=== PATIENT | male | born 1960 | race Caucasian/White ===

== ENCOUNTER 2017-01-22 13:00 | Outpatient (CLI) | payer MEDICARE, OTHER ==
[~2017-01-22 13:00] MED LIST: ACET-868 PO; ASCO500T9 PO; BISA-79 PO; CLON0.1T PO; CLON1TAB4 PO; DOCU250C30 PO; FOLI1TAB16 PO; HYDR-3326 PO; LEVE1000 PO; MAGN400O4 PO; METO25TA20 PO; MULT1CAP34 PO; ONDA4TAB5 PO; PANT40TA2 PO; TEMA30CA5 PO; THIA100T13 PO
== END 2017-01-22 23:59 | disposition home health service (06) ==
LOC: WOU 13:00
PROVIDERS: ATTEND Podiatrist Foot & Ankle Surgery
DX: I87.312 Chronic venous hypertension (idiopathic) with ulcer of left lower extremity (principal); L97.822 Non-pressure chronic ulcer of other part of left lower leg with fat layer exposed; L84 Corns and callosities; F17.200 Nicotine dependence, unspecified, uncomplicated; E11.42 Type 2 diabetes mellitus with diabetic polyneuropathy; Z86.19 Personal history of other infectious and parasitic diseases; Z79.84 Long term (current) use of oral hypoglycemic drugs
CPT/HCPCS: 11042; 11045; A6197; A6402 ×2; A6452

== ENCOUNTER 2017-02-05 12:52 | Outpatient (CLI) | payer MEDICARE, OTHER | END 2017-02-05 23:59 | disposition home health service (06) | LOC: WOU 12:52 | PROVIDERS: ATTEND Podiatrist Foot & Ankle Surgery | DX: I87.312 Chronic venous hypertension (idiopathic) with ulcer of left lower extremity (principal); L97.222 Non-pressure chronic ulcer of left calf with fat layer exposed; F17.200 Nicotine dependence, unspecified, uncomplicated; L84 Corns and callosities; E11.42 Type 2 diabetes mellitus with diabetic polyneuropathy; Z86.19 Personal history of other infectious and parasitic diseases; S00.83XD Contusion of other part of head, subsequent encounter; W19.XXXD Unspecified fall, subsequent encounter; F10.20 Alcohol dependence, uncomplicated; Y90.9 Presence of alcohol in blood, level not specified; M17.11 Unilateral primary osteoarthritis, right knee; Z79.899 Other long term (current) drug therapy | CPT/HCPCS: 11042; 11045; A6402; G0463 ==

== ENCOUNTER 2017-03-12 10:00 | Outpatient (CLI) | payer MEDICARE, OTHER | END 2017-03-12 23:59 | disposition home health service (06) | LOC: WOU 10:00 | PROVIDERS: ATTEND Podiatrist Foot & Ankle Surgery | DX: I87.312 Chronic venous hypertension (idiopathic) with ulcer of left lower extremity (principal); F17.210 Nicotine dependence, cigarettes, uncomplicated; Z86.19 Personal history of other infectious and parasitic diseases; I10 Essential (primary) hypertension; Z79.899 Other long term (current) drug therapy; E11.52 Type 2 diabetes mellitus with diabetic peripheral angiopathy with gangrene; E11.622 Type 2 diabetes mellitus with other skin ulcer; L97.222 Non-pressure chronic ulcer of left calf with fat layer exposed | CPT/HCPCS: 11042; A6197; A6402; A6452 ==

== ENCOUNTER 2017-08-06 10:20 | Outpatient (CLI) | payer MEDICARE, OTHER | END 2017-08-06 23:59 | disposition home health service (06) | LOC: WOU 10:20 | PROVIDERS: ATTEND Podiatrist Foot & Ankle Surgery | DX: I87.312 Chronic venous hypertension (idiopathic) with ulcer of left lower extremity (principal); E11.51 Type 2 diabetes mellitus with diabetic peripheral angiopathy without gangrene; Z79.899 Other long term (current) drug therapy; Z87.892 Personal history of anaphylaxis; Z88.2 Allergy status to sulfonamides; F17.200 Nicotine dependence, unspecified, uncomplicated; B18.2 Chronic viral hepatitis C; E11.622 Type 2 diabetes mellitus with other skin ulcer; L97.821 Non-pressure chronic ulcer of other part of left lower leg limited to breakdown of skin | CPT/HCPCS: 11042; 11045; A6253; A6402; A6452; J7040 ==

== ENCOUNTER 2017-08-07 09:04 | Outpatient (CLI) | payer MEDICARE, OTHER ==
[2017-08-07 09:52] LABS: BASOPHILS % (AUTO) 0.6 % (0.0-2.0); EOSINOPHILS # (AUTO) 0.2 /CMM (0.0-0.7); EOSINOPHILS % (AUTO) 3.7 % (0.0-6.0); HEMATOCRIT 36 % (39-51); HEMOGLOBIN 12.6 g/dL (13.5-17.5); LYMPHOCYTES % (AUTO) 23.2 % (20.0-44.0); MEAN CORPUSCULAR HEMOGLOBIN 35 PG (26.0-33.0); MEAN CORPUSCULAR HGB CONC 35 g/dl (31.0-36.0); MEAN CORPUSCULAR VOLUME 101 fL (80-96); MONOCYTES # (AUTO) 0.8 /CMM (0.1-1.30); MONOCYTES % (AUTO) 18.9 % (2.0-12.0); NEUTROPHILS # (AUTO) 2.3 /CMM (1.8-8.9); NEUTROPHILS % (AUTO) 53.6 % (43.0-81.0); PLATELET COUNT (AUTO) 98 /CMM (150-450); RDW COEFFICIENT OF VARIATION 14.3 (11.5-15.0); RED BLOOD CELL COUNT(AUTO) 3.59 MIL/uL (4.5-6.0); WHITE BLOOD COUNT (AUTO) 4.3 K/uL (4.3-11.0)
[2017-08-07 10:15] LABS: ALBUMIN 2.9 g/dL (3.4-5.0)
[2017-08-07 10:18] LABS: PREALBUMIN 16.3 MG/DL (18.0-35.7)
[2017-08-07 10:29] LABS: EOSINOPHILS % (MANUAL) 2 % (0-4); LYMPHOCYTES % (MANUAL) 30 % (16-48); MONOCYTES % (MANUAL) 11 % (0-11.0); NEUTROPHILS % (MANUAL) 57 (42-76)
== END 2017-08-07 23:59 | disposition home or self-care (01) ==
LOC: LAB 09:04
PROVIDERS: ATTEND Podiatrist Foot & Ankle Surgery
DX: I10 Essential (primary) hypertension (principal); K74.60 Unspecified cirrhosis of liver; F31.9 Bipolar disorder, unspecified; F10.10 Alcohol abuse, uncomplicated; E11.9 Type 2 diabetes mellitus without complications; I83.009 Varicose veins of unspecified lower extremity with ulcer of unspecified site; L97.909 Non-pressure chronic ulcer of unspecified part of unspecified lower leg with unspecified severity; S81.809A Unspecified open wound, unspecified lower leg, initial encounter; X58.XXXA Exposure to other specified factors, initial encounter; Y93.89 Activity, other specified; Y92.89 Other specified places as the place of occurrence of the external cause; Y99.8 Other external cause status
CPT/HCPCS: 36415; 82040-TC; 84134-TC; 85025-TC

== ENCOUNTER 2017-08-11 14:20 | Outpatient (CLI) | payer MEDICARE, OTHER | END 2017-08-11 23:59 | disposition home or self-care (01) | LOC: WOU 14:20 | PROVIDERS: ATTEND Podiatrist Foot & Ankle Surgery | DX: I87.2 Venous insufficiency (chronic) (peripheral) (principal); L98.499 Non-pressure chronic ulcer of skin of other sites with unspecified severity | CPT/HCPCS: 93925; 93970; A6253; A6402; A6452 ==

== ENCOUNTER 2017-08-24 11:05 | Outpatient (CLI) | payer MEDICARE, OTHER | END 2017-08-24 23:59 | disposition home health service (06) | LOC: WOU 11:05 | PROVIDERS: ATTEND Podiatrist Foot & Ankle Surgery | DX: I87.312 Chronic venous hypertension (idiopathic) with ulcer of left lower extremity (principal); L97.821 Non-pressure chronic ulcer of other part of left lower leg limited to breakdown of skin; L89.892 Pressure ulcer of other site, stage 2; B18.2 Chronic viral hepatitis C; E11.51 Type 2 diabetes mellitus with diabetic peripheral angiopathy without gangrene | CPT/HCPCS: 11042; 11045; A6209; A6253; A6402; A6452 ==

== ENCOUNTER 2017-08-31 09:42 | Outpatient (CLI) | payer MEDICARE, OTHER | END 2017-08-31 23:59 | disposition home health service (06) | LOC: WOU 09:42 | PROVIDERS: ATTEND Podiatrist Foot & Ankle Surgery | DX: I87.312 Chronic venous hypertension (idiopathic) with ulcer of left lower extremity (principal); L89.892 Pressure ulcer of other site, stage 2; B18.2 Chronic viral hepatitis C; E11.51 Type 2 diabetes mellitus with diabetic peripheral angiopathy without gangrene; L97.821 Non-pressure chronic ulcer of other part of left lower leg limited to breakdown of skin; I10 Essential (primary) hypertension; F17.200 Nicotine dependence, unspecified, uncomplicated; Z88.2 Allergy status to sulfonamides; R77.0 Abnormality of albumin | CPT/HCPCS: 11042; 11045; A6209; A6253; A6402; A6452 ==

== ENCOUNTER 2017-09-08 13:05 | Outpatient (CLI) | payer MEDICARE, OTHER | END 2017-09-08 23:59 | disposition home health service (06) | LOC: VASLAB 13:05 | PROVIDERS: ATTEND Surgery Vascular Surgery | DX: I87.012 Postthrombotic syndrome with ulcer of left lower extremity (principal); L97.829 Non-pressure chronic ulcer of other part of left lower leg with unspecified severity; B18.2 Chronic viral hepatitis C; E11.622 Type 2 diabetes mellitus with other skin ulcer; D69.6 Thrombocytopenia, unspecified; Z79.01 Long term (current) use of anticoagulants | CPT/HCPCS: A6253; A6402; A6452; G0463 ==

== ENCOUNTER 2017-09-10 11:23 | Outpatient (CLI) | payer MEDICARE, OTHER ==
[2017-09-10 12:39] LABS: BASOPHILS % (AUTO) 0.8 % (0.0-2.0); EOSINOPHILS # (AUTO) 0.3 /CMM (0.0-0.7); EOSINOPHILS % (AUTO) 6.6 % (0.0-6.0); HEMATOCRIT 36 % (39-51); HEMOGLOBIN 12.5 g/dL (13.5-17.5); LYMPHOCYTES # (AUTO) 1.3 /CMM (0.8-4.8); LYMPHOCYTES % (AUTO) 25.8 % (20.0-44.0); MEAN CORPUSCULAR HEMOGLOBIN 35 PG (26.0-33.0); MEAN CORPUSCULAR HGB CONC 34 g/dl (31.0-36.0); MEAN CORPUSCULAR VOLUME 103 fL (80-96); MONOCYTES # (AUTO) 0.9 /CMM (0.1-1.30); MONOCYTES % (AUTO) 18.3 % (2.0-12.0); NEUTROPHILS # (AUTO) 2.4 /CMM (1.8-8.9); NEUTROPHILS % (AUTO) 48.5 % (43.0-81.0); PLATELET COUNT (AUTO) 95 /CMM (150-450); RDW COEFFICIENT OF VARIATION 14.2 (11.5-15.0); RED BLOOD CELL COUNT(AUTO) 3.53 MIL/uL (4.5-6.0); RETICULOCYTE COUNT 2.2 % (0.6-2.5); WHITE BLOOD COUNT (AUTO) 4.9 K/uL (4.3-11.0)
[2017-09-10 12:57] LABS: ALANINE AMINOTRANSFERASE 49 U/L (12-78); ALBUMIN 2.9 g/dL (3.4-5.0); ALKALINE PHOSPHATASE 84 U/L (46-116); ASPARTATE AMINOTRANSFERASE 63 U/L (15-37); BILIRUBIN,TOTAL 1.5 mg/dL (0.2-1.0); CALCIUM, SERUM 8.5 mg/dL (8.5-10.1); CARBON DIOXIDE 23 mmol/L (21-32); CHLORIDE 111 mmol/L (98-107); GLUCOSE 62 mg/dL (74-106); POTASSIUM 4.7 mmol/L (3.5-5.1); SODIUM SERUM 140 mmol/L (136-145); TOTAL PROTEIN, SERUM 8.1 g/dL (6.4-8.2); UREA NITROGEN, BLOOD 27 mg/dL (7-18)
[2017-09-10 13:10] LABS: FERRITIN 339 ng/mL (8-388); FREE T4 (FREE THYROXINE) 1.32 ng/dL (0.76-1.46); THYROID STIMULATING HORMONE 1.841 uIU/mL (0.358-3.74)
[2017-09-10 13:34] LABS: C-REACTIVE PROTEIN < 0.2 mg/dL (0.0-0.9)
[2017-09-10 13:35] LABS: BAND % (MANUAL) 3 % (0.0-5.0); EOSINOPHILS % (MANUAL) 5 % (0-4); LYMPHOCYTES % (MANUAL) 28 % (16-48); MONOCYTES % (MANUAL) 15 % (0-11.0); NEUTROPHILS % (MANUAL) 49 (42-76)
[2017-09-10 13:45] LABS: IRON, SERUM 160 ug/dl (50-175); TOTAL IRON BINDING CAPACITY 314 ug/dl (250-450)
[2017-09-11 11:10] LABS: AFP, TUMOR MARKER 46.5 ng/mL (0.0-8.3)
[2017-09-11 12:11] LABS: *IFE A/G RATIO 0.8 (0.7-1.7); *IFE ALBUMIN 3.4 g/dL (2.9-4.4); *IFE ALPHA-2-GLOBULIN 0.6 g/dL (0.4-1.0); *IFE GAMMA GLOBULIN 2.9 g/dL (0.4-1.8); *IFE M-SPIKE Not Observed g/dL (Not Observed); *IFEALPHA-1-GLOBULIN 0.3 g/dL (0.0-0.4); *SPE PROTEIN TOTAL 8.1 g/dL (6.0-8.5)
== END 2017-09-10 23:59 | disposition home or self-care (01) ==
LOC: LAB 11:23
PROVIDERS: ATTEND Internal Medicine Hematology & Oncology
DX: B19.20 Unspecified viral hepatitis C without hepatic coma (principal); K74.60 Unspecified cirrhosis of liver; R74.0 Nonspecific elevation of levels of transaminase and lactic acid dehydrogenase [LDH]; E80.6 Other disorders of bilirubin metabolism
CPT/HCPCS: 36415; 80053-TC; 82105; 82272-TC; 82728-TC; 82746; 83540-TC; 84439-TC; 84443-TC; 85025-TC; 85045-TC; 86140-TC; 86431-TC; 86706; 86803; 87338; 87340

== ENCOUNTER 2017-09-14 09:37 | Outpatient (CLI) | payer MEDICARE, OTHER | END 2017-09-14 23:59 | disposition home or self-care (01) | LOC: US 09:37 | PROVIDERS: ATTEND Internal Medicine Hematology & Oncology | DX: K74.60 Unspecified cirrhosis of liver (principal); R16.1 Splenomegaly, not elsewhere classified; K86.89 Other specified diseases of pancreas; K82.9 Disease of gallbladder, unspecified | CPT/HCPCS: 76700-TC ==

== ENCOUNTER 2017-09-14 10:44 | Outpatient (CLI) | payer MEDICARE, OTHER | END 2017-09-14 23:59 | disposition home health service (06) | LOC: WOU 10:44 | PROVIDERS: ATTEND Podiatrist Foot & Ankle Surgery | DX: I87.312 Chronic venous hypertension (idiopathic) with ulcer of left lower extremity (principal); F17.200 Nicotine dependence, unspecified, uncomplicated; B18.2 Chronic viral hepatitis C; E11.622 Type 2 diabetes mellitus with other skin ulcer; L97.821 Non-pressure chronic ulcer of other part of left lower leg limited to breakdown of skin; I10 Essential (primary) hypertension | CPT/HCPCS: 11042; 11045; A6253; A6402; A6452; 88305-TC ==

== ENCOUNTER 2017-09-21 10:43 | Outpatient (CLI) | payer MEDICARE, OTHER | END 2017-09-21 23:59 | disposition home health service (06) | LOC: WOU 10:43 | PROVIDERS: ATTEND Podiatrist Foot & Ankle Surgery | DX: I87.312 Chronic venous hypertension (idiopathic) with ulcer of left lower extremity (principal); L97.821 Non-pressure chronic ulcer of other part of left lower leg limited to breakdown of skin; B18.2 Chronic viral hepatitis C; F17.200 Nicotine dependence, unspecified, uncomplicated; Z87.892 Personal history of anaphylaxis; Z88.2 Allergy status to sulfonamides; E11.622 Type 2 diabetes mellitus with other skin ulcer; D69.6 Thrombocytopenia, unspecified | CPT/HCPCS: 11042; 11045; A6253; A6402; A6452 ==

== ENCOUNTER 2017-09-28 10:55 | Outpatient (CLI) | payer MEDICARE, OTHER | END 2017-09-28 23:59 | disposition home health service (06) | LOC: WOU 10:55 | PROVIDERS: ATTEND Podiatrist Foot & Ankle Surgery | DX: I87.312 Chronic venous hypertension (idiopathic) with ulcer of left lower extremity (principal); L97.821 Non-pressure chronic ulcer of other part of left lower leg limited to breakdown of skin; E11.622 Type 2 diabetes mellitus with other skin ulcer; B18.2 Chronic viral hepatitis C; D69.59 Other secondary thrombocytopenia; F17.210 Nicotine dependence, cigarettes, uncomplicated; K74.69 Other cirrhosis of liver | CPT/HCPCS: 15271; A6253; A6402; A6452; J7040; Q4172 ==

== ENCOUNTER 2017-10-05 10:35 | Outpatient (CLI) | payer MEDICARE, OTHER | END 2017-10-05 23:59 | disposition home health service (06) | LOC: WOU 10:35 | PROVIDERS: ATTEND Podiatrist Foot & Ankle Surgery | DX: I87.312 Chronic venous hypertension (idiopathic) with ulcer of left lower extremity (principal); L97.821 Non-pressure chronic ulcer of other part of left lower leg limited to breakdown of skin; F17.200 Nicotine dependence, unspecified, uncomplicated; D69.59 Other secondary thrombocytopenia; K74.60 Unspecified cirrhosis of liver; B18.2 Chronic viral hepatitis C; E11.9 Type 2 diabetes mellitus without complications; Z87.892 Personal history of anaphylaxis; Z88.2 Allergy status to sulfonamides | CPT/HCPCS: 11042; A6253; A6402; A6452 ==

== ENCOUNTER 2017-10-12 10:45 | Outpatient (CLI) | payer MEDICARE, OTHER | END 2017-10-12 23:59 | disposition home health service (06) | LOC: WOU 10:45 | PROVIDERS: ATTEND Podiatrist Foot & Ankle Surgery | DX: I87.312 Chronic venous hypertension (idiopathic) with ulcer of left lower extremity (principal); E11.622 Type 2 diabetes mellitus with other skin ulcer; L97.822 Non-pressure chronic ulcer of other part of left lower leg with fat layer exposed; F17.200 Nicotine dependence, unspecified, uncomplicated; B18.2 Chronic viral hepatitis C; D69.59 Other secondary thrombocytopenia; I10 Essential (primary) hypertension; K74.60 Unspecified cirrhosis of liver | CPT/HCPCS: 15271; A6253; A6402; A6452; Q4172 ==

== ENCOUNTER 2017-10-12 12:07 | Outpatient (CLI) | payer MEDICARE, OTHER ==
[2017-10-12 13:28] LABS: ALBUMIN 2.7 g/dL (3.4-5.0); BILIRUBIN,TOTAL 0.9 mg/dL (0.2-1.0); CALCIUM, SERUM 8.6 mg/dL (8.5-10.1); POTASSIUM 4.8 mmol/L (3.5-5.1); TOTAL PROTEIN, SERUM 7.6 g/dL (6.4-8.2)
[2017-10-12 13:31] LABS: BASOPHILS % (AUTO) 0.8 % (0.0-2.0); EOSINOPHILS # (AUTO) 0.3 /CMM (0.0-0.7); EOSINOPHILS % (AUTO) 6.9 % (0.0-6.0); HEMATOCRIT 37 % (39-51); HEMOGLOBIN 12.5 g/dL (13.5-17.5); LYMPHOCYTES # (AUTO) 1.1 /CMM (0.8-4.8); LYMPHOCYTES % (AUTO) 25.4 % (20.0-44.0); MEAN CORPUSCULAR HEMOGLOBIN 35 PG (26.0-33.0); MEAN CORPUSCULAR HGB CONC 34 g/dl (31.0-36.0); MEAN CORPUSCULAR VOLUME 103 fL (80-96); MONOCYTES # (AUTO) 0.6 /CMM (0.1-1.30); MONOCYTES % (AUTO) 15.2 % (2.0-12.0); NEUTROPHILS # (AUTO) 2.2 /CMM (1.8-8.9); NEUTROPHILS % (AUTO) 51.7 % (43.0-81.0); PLATELET COUNT (AUTO) 104 /CMM (150-450); RDW COEFFICIENT OF VARIATION 14.3 (11.5-15.0); RED BLOOD CELL COUNT(AUTO) 3.54 MIL/uL (4.5-6.0); WHITE BLOOD COUNT (AUTO) 4.2 K/uL (4.3-11.0)
[2017-10-12 13:57] LABS: BAND % (MANUAL) 1 % (0.0-5.0); EOSINOPHILS % (MANUAL) 2 % (0-4); LYMPHOCYTES % (MANUAL) 19 % (16-48); MONOCYTES % (MANUAL) 11 % (0-11.0); NEUTROPHILS % (MANUAL) 67 (42-76)
[2017-10-13 12:06] LABS: AFP, TUMOR MARKER 74.9 ng/mL (0.0-8.3)
[2017-10-14 12:06] LABS: *ANCANTIMYELOPEROXIDASE (MPO) <9.0 U/mL (0.0-9.0); *ANCANTIPROTEINASE 3 (PR-3) AB <3.5 U/mL (0.0-3.5)
[2017-10-14 13:27] LABS: ANTI-MITOCHONDRIAL AB 16.5 Units (0.0-20.0)
[2017-10-16 09:12] LABS: *ANCA ATYPICAL p-ANCA <1:20 titer (Neg:<1:20); *ANCA CYTOPLASMIC (C-ANCA) <1:20 titer (Neg:<1:20); *ANCA PERINUCLEAR (P-ANCA) <1:20 titer (Neg:<1:20)
== END 2017-10-12 23:59 | disposition home or self-care (01) ==
LOC: LAB 12:07
PROVIDERS: ATTEND Internal Medicine Hematology & Oncology
DX: D61.818 Other pancytopenia (principal)
CPT/HCPCS: 36415; 80053-TC; 82105; 82728-TC; 82746; 83516; 83520; 83540-TC; 85025-TC; 86256; 87340

== ENCOUNTER 2017-10-19 11:10 | Outpatient (CLI) | payer MEDICARE, OTHER | END 2017-10-19 23:59 | disposition home health service (06) | LOC: WOU 11:10 | PROVIDERS: ATTEND Podiatrist Foot & Ankle Surgery | DX: I87.312 Chronic venous hypertension (idiopathic) with ulcer of left lower extremity (principal); E11.622 Type 2 diabetes mellitus with other skin ulcer; L97.822 Non-pressure chronic ulcer of other part of left lower leg with fat layer exposed; F17.200 Nicotine dependence, unspecified, uncomplicated; B18.2 Chronic viral hepatitis C; D69.59 Other secondary thrombocytopenia; I10 Essential (primary) hypertension; K74.60 Unspecified cirrhosis of liver | CPT/HCPCS: 11042; 11045; A6253; A6402; A6452 ==

== ENCOUNTER 2017-11-02 09:50 | Outpatient (CLI) | payer MEDICARE, OTHER | END 2017-11-02 23:59 | disposition home or self-care (01) | LOC: WOU 09:50 | PROVIDERS: ATTEND Podiatrist Foot & Ankle Surgery | DX: I87.312 Chronic venous hypertension (idiopathic) with ulcer of left lower extremity (principal); L97.822 Non-pressure chronic ulcer of other part of left lower leg with fat layer exposed; E11.622 Type 2 diabetes mellitus with other skin ulcer; B18.2 Chronic viral hepatitis C; D69.59 Other secondary thrombocytopenia; F17.200 Nicotine dependence, unspecified, uncomplicated; Z79.899 Other long term (current) drug therapy | CPT/HCPCS: 11042; 11045; A6253; A6402; A6452 ==

== ENCOUNTER 2017-11-03 10:54 | Outpatient (CLI) | payer MEDICARE, OTHER ==
[2017-11-03] MEDS ORDERED: CT SWABBABLE VALVE TRANS SET 1 EA INFUS.SET MC ONE (11:38)
[2017-11-03] MEDS ORDERED: IV NS 0.9% 250 ML IV ONE (11:38)
[2017-11-03] MEDS ORDERED: IOHEXOL-300 100 ML VIAL IV ONE (11:39)
== END 2017-11-03 23:59 | disposition home or self-care (01) ==
LOC: CT 10:54
PROVIDERS: ATTEND Internal Medicine Hematology & Oncology
DX: K74.60 Unspecified cirrhosis of liver (principal); K76.0 Fatty (change of) liver, not elsewhere classified; B19.20 Unspecified viral hepatitis C without hepatic coma; R16.1 Splenomegaly, not elsewhere classified; I70.0 Atherosclerosis of aorta; I86.4 Gastric varices; K42.9 Umbilical hernia without obstruction or gangrene; M46.06 Spinal enthesopathy, lumbar region
CPT/HCPCS: 74170; J7050; Q9967

== ENCOUNTER 2017-11-19 11:20 | Outpatient (CLI) | payer MEDICARE, OTHER ==
[~2017-11-19 11:20] MED LIST changes: +MAGN400O21 PO; -MAGN400O4 PO
== END 2017-11-19 23:59 | disposition home health service (06) ==
LOC: WOU 11:20
PROVIDERS: ATTEND Podiatrist Foot & Ankle Surgery
DX: E11.622 Type 2 diabetes mellitus with other skin ulcer (principal); I87.312 Chronic venous hypertension (idiopathic) with ulcer of left lower extremity; B18.2 Chronic viral hepatitis C; D69.59 Other secondary thrombocytopenia; F17.210 Nicotine dependence, cigarettes, uncomplicated; L97.928 Non-pressure chronic ulcer of unspecified part of left lower leg with other specified severity
CPT/HCPCS: 11042; 11045; A6402 ×2; A6452

== ENCOUNTER 2017-12-07 10:22 | Outpatient (CLI) | payer MEDICARE, OTHER | END 2017-12-07 23:59 | disposition home health service (06) | LOC: WOU 10:22 | PROVIDERS: ATTEND Podiatrist Foot & Ankle Surgery | DX: I87.312 Chronic venous hypertension (idiopathic) with ulcer of left lower extremity (principal); L97.822 Non-pressure chronic ulcer of other part of left lower leg with fat layer exposed; E11.622 Type 2 diabetes mellitus with other skin ulcer; F17.200 Nicotine dependence, unspecified, uncomplicated; K74.69 Other cirrhosis of liver; B18.2 Chronic viral hepatitis C; D69.59 Other secondary thrombocytopenia | CPT/HCPCS: 11042; 11045; A6253; A6402; A6452 ==

== ENCOUNTER → 2017-12-17 | Outpatient (CLI) | payer MEDICARE, OTHER | END | disposition home health service (06) | LOC: WOU 09:45 | PROVIDERS: ATTEND Podiatrist Foot & Ankle Surgery | DX: I87.312 Chronic venous hypertension (idiopathic) with ulcer of left lower extremity (principal); L97.822 Non-pressure chronic ulcer of other part of left lower leg with fat layer exposed; B18.2 Chronic viral hepatitis C; D69.59 Other secondary thrombocytopenia; E11.622 Type 2 diabetes mellitus with other skin ulcer | CPT/HCPCS: 11042; 11045; A6253; A6402; A6452 ==

== ENCOUNTER 2017-12-28 10:09 | Outpatient (CLI) | payer MEDICARE, OTHER ==
[~2017-12-28 10:09] MED LIST changes: -HYDR-3326 PO; +HYDR-3974 PO
== END 2017-12-28 23:59 | disposition home health service (06) ==
LOC: WOU 10:09
PROVIDERS: ATTEND Podiatrist Foot & Ankle Surgery
DX: I87.312 Chronic venous hypertension (idiopathic) with ulcer of left lower extremity (principal); L97.822 Non-pressure chronic ulcer of other part of left lower leg with fat layer exposed; B18.2 Chronic viral hepatitis C; D69.59 Other secondary thrombocytopenia; F17.200 Nicotine dependence, unspecified, uncomplicated; Z86.718 Personal history of other venous thrombosis and embolism
CPT/HCPCS: 11042; 11045; A6253; A6402

== ENCOUNTER 2018-01-07 09:50 | Outpatient (CLI) | payer MEDICARE, OTHER | END 2018-01-07 23:59 | disposition home health service (06) | LOC: WOU 09:50 | PROVIDERS: ATTEND Podiatrist Foot & Ankle Surgery | DX: I87.312 Chronic venous hypertension (idiopathic) with ulcer of left lower extremity (principal); L97.829 Non-pressure chronic ulcer of other part of left lower leg with unspecified severity; D69.59 Other secondary thrombocytopenia; B18.2 Chronic viral hepatitis C; E11.622 Type 2 diabetes mellitus with other skin ulcer; F17.200 Nicotine dependence, unspecified, uncomplicated; Z88.2 Allergy status to sulfonamides | CPT/HCPCS: 11042; 11045; A6253; A6402; A6452 ==

== ENCOUNTER 2018-01-14 10:12 | Outpatient (CLI) | payer MEDICARE, OTHER | END 2018-01-14 23:59 | disposition home health service (06) | LOC: WOU 10:12 | PROVIDERS: ATTEND Podiatrist Foot & Ankle Surgery | DX: I87.312 Chronic venous hypertension (idiopathic) with ulcer of left lower extremity (principal); L97.822 Non-pressure chronic ulcer of other part of left lower leg with fat layer exposed; B18.2 Chronic viral hepatitis C; D69.59 Other secondary thrombocytopenia; E11.622 Type 2 diabetes mellitus with other skin ulcer; F17.200 Nicotine dependence, unspecified, uncomplicated | CPT/HCPCS: 11042; 11045; A6253; A6402; A6452 ==

== ENCOUNTER 2018-01-25 10:41 | Outpatient (CLI) | payer MEDICARE, OTHER | END 2018-01-25 23:59 | disposition home health service (06) | LOC: WOU 10:41 | PROVIDERS: ATTEND Podiatrist Foot & Ankle Surgery | DX: I87.312 Chronic venous hypertension (idiopathic) with ulcer of left lower extremity (principal); L97.822 Non-pressure chronic ulcer of other part of left lower leg with fat layer exposed; E11.622 Type 2 diabetes mellitus with other skin ulcer; B18.2 Chronic viral hepatitis C; D69.59 Other secondary thrombocytopenia; Z79.899 Other long term (current) drug therapy; F17.200 Nicotine dependence, unspecified, uncomplicated | CPT/HCPCS: 11042; 11045; A6253; A6402 ×2; A6452; J7040 ==

== ENCOUNTER 2018-02-04 10:25 | Outpatient (CLI) | payer MEDICARE, OTHER | END 2018-02-04 23:59 | disposition home health service (06) | LOC: WOU 10:25 | PROVIDERS: ATTEND Podiatrist Foot & Ankle Surgery | DX: I87.312 Chronic venous hypertension (idiopathic) with ulcer of left lower extremity (principal); L97.822 Non-pressure chronic ulcer of other part of left lower leg with fat layer exposed; D69.59 Other secondary thrombocytopenia; B18.2 Chronic viral hepatitis C; E11.622 Type 2 diabetes mellitus with other skin ulcer; F10.20 Alcohol dependence, uncomplicated; Y90.9 Presence of alcohol in blood, level not specified; F17.200 Nicotine dependence, unspecified, uncomplicated; Z79.899 Other long term (current) drug therapy | CPT/HCPCS: 11042; 11045; 82962-TC; A6253; A6402; A6452; J7040 ==

== ENCOUNTER 2018-02-15 10:40 | Outpatient (CLI) | payer MEDICARE, OTHER | END 2018-02-15 23:59 | LOC: WOU 10:40 | PROVIDERS: ATTEND Podiatrist Foot & Ankle Surgery | DX: I87.312 Chronic venous hypertension (idiopathic) with ulcer of left lower extremity (principal); E11.622 Type 2 diabetes mellitus with other skin ulcer; L97.822 Non-pressure chronic ulcer of other part of left lower leg with fat layer exposed; D69.59 Other secondary thrombocytopenia; B18.2 Chronic viral hepatitis C; F17.200 Nicotine dependence, unspecified, uncomplicated | CPT/HCPCS: 11042; 11045; A6253; A6402; A6452 ==

== ENCOUNTER 2018-02-25 09:20 | Outpatient (CLI) | payer MEDICARE, OTHER ==
[~2018-02-25 09:20] MED LIST changes: -CLON1TAB4 PO; +CLON1TAB5 PO
== END 2018-02-25 23:59 | disposition home health service (06) ==
LOC: WOU 09:20
PROVIDERS: ATTEND Podiatrist Foot & Ankle Surgery
DX: I87.312 Chronic venous hypertension (idiopathic) with ulcer of left lower extremity (principal); L97.823 Non-pressure chronic ulcer of other part of left lower leg with necrosis of muscle; D69.59 Other secondary thrombocytopenia; B18.2 Chronic viral hepatitis C; E11.622 Type 2 diabetes mellitus with other skin ulcer; Z79.899 Other long term (current) drug therapy
CPT/HCPCS: 11043; 11046; A6253; A6402; A6452

== ENCOUNTER 2018-03-03 10:15 | Outpatient (CLI) | payer MEDICARE, OTHER | END 2018-03-03 23:59 | disposition home health service (06) | LOC: WOU 10:15 | PROVIDERS: ATTEND Podiatrist Foot & Ankle Surgery | DX: I87.312 Chronic venous hypertension (idiopathic) with ulcer of left lower extremity (principal); L97.823 Non-pressure chronic ulcer of other part of left lower leg with necrosis of muscle; E11.622 Type 2 diabetes mellitus with other skin ulcer; D69.59 Other secondary thrombocytopenia; B18.2 Chronic viral hepatitis C; F17.200 Nicotine dependence, unspecified, uncomplicated; K74.60 Unspecified cirrhosis of liver; Z88.2 Allergy status to sulfonamides; I10 Essential (primary) hypertension; Z79.899 Other long term (current) drug therapy | CPT/HCPCS: 11042; 11045; A6253; A6402; A6452 ==

== ENCOUNTER 2018-03-11 09:21 | Outpatient (CLI) | payer MEDICARE, OTHER | END 2018-03-11 23:59 | disposition home health service (06) | LOC: WOU 09:21 | PROVIDERS: ATTEND Podiatrist Foot & Ankle Surgery | DX: I87.312 Chronic venous hypertension (idiopathic) with ulcer of left lower extremity (principal); L97.823 Non-pressure chronic ulcer of other part of left lower leg with necrosis of muscle; E11.622 Type 2 diabetes mellitus with other skin ulcer; B18.2 Chronic viral hepatitis C; D69.59 Other secondary thrombocytopenia; F17.200 Nicotine dependence, unspecified, uncomplicated; K74.69 Other cirrhosis of liver; Z79.899 Other long term (current) drug therapy | CPT/HCPCS: 11042; 11045; A6253; A6402; A6452 ==

== ENCOUNTER 2018-03-18 09:45 | Outpatient (CLI) | payer MEDICARE, OTHER | END 2018-03-18 23:59 | disposition home health service (06) | LOC: WOU 09:45 | PROVIDERS: ATTEND Podiatrist Foot & Ankle Surgery | DX: I87.312 Chronic venous hypertension (idiopathic) with ulcer of left lower extremity (principal); E11.622 Type 2 diabetes mellitus with other skin ulcer; L97.822 Non-pressure chronic ulcer of other part of left lower leg with fat layer exposed; B18.2 Chronic viral hepatitis C; D69.59 Other secondary thrombocytopenia; I10 Essential (primary) hypertension; F17.200 Nicotine dependence, unspecified, uncomplicated; Z88.1 Allergy status to other antibiotic agents; Z79.84 Long term (current) use of oral hypoglycemic drugs | CPT/HCPCS: 11042; 11045; A6253; A6402; A6452 ==

== ENCOUNTER 2018-03-25 09:32 | Outpatient (CLI) | payer MEDICARE, OTHER | END 2018-03-25 23:59 | disposition home health service (06) | LOC: WOU 09:32 | PROVIDERS: ATTEND Podiatrist Foot & Ankle Surgery | DX: I87.312 Chronic venous hypertension (idiopathic) with ulcer of left lower extremity (principal); L97.822 Non-pressure chronic ulcer of other part of left lower leg with fat layer exposed; E11.622 Type 2 diabetes mellitus with other skin ulcer; B18.2 Chronic viral hepatitis C; D69.59 Other secondary thrombocytopenia; F17.200 Nicotine dependence, unspecified, uncomplicated; Z79.899 Other long term (current) drug therapy; Z88.2 Allergy status to sulfonamides; Z79.84 Long term (current) use of oral hypoglycemic drugs | CPT/HCPCS: 11042; 11045; A6253; A6402; A6452 ==

== ENCOUNTER 2018-04-01 10:28 | Outpatient (CLI) | payer MEDICARE, OTHER | END 2018-04-01 23:59 | disposition home health service (06) | LOC: WOU 10:28 | PROVIDERS: ATTEND Podiatrist Foot & Ankle Surgery | DX: I87.312 Chronic venous hypertension (idiopathic) with ulcer of left lower extremity (principal); L97.822 Non-pressure chronic ulcer of other part of left lower leg with fat layer exposed; B18.2 Chronic viral hepatitis C; D69.59 Other secondary thrombocytopenia; Z88.2 Allergy status to sulfonamides; Z79.899 Other long term (current) drug therapy; Z79.84 Long term (current) use of oral hypoglycemic drugs | CPT/HCPCS: 11042; 11045; A6253; A6402; A6452 ==

== ENCOUNTER 2018-04-05 11:15 | Outpatient (CLI) | payer MEDICARE, OTHER | END 2018-04-05 23:59 | disposition home or self-care (01) | LOC: LAB 11:15 | PROVIDERS: ATTEND Podiatrist Foot & Ankle Surgery | DX: Z01.818 Encounter for other preprocedural examination (principal); I87.312 Chronic venous hypertension (idiopathic) with ulcer of left lower extremity; M25.78 Osteophyte, vertebrae | CPT/HCPCS: 71046 ==

== ENCOUNTER 2018-04-08 10:27 | Outpatient (CLI) | payer MEDICARE, OTHER ==
[2018-04-08 12:51] LABS: INR 1.29 (0.87-1.13)
== END 2018-04-08 23:59 | disposition home health service (06) ==
LOC: WOU 10:27
PROVIDERS: ATTEND Podiatrist Foot & Ankle Surgery
DX: I87.312 Chronic venous hypertension (idiopathic) with ulcer of left lower extremity (principal); L97.822 Non-pressure chronic ulcer of other part of left lower leg with fat layer exposed; B18.2 Chronic viral hepatitis C; D69.59 Other secondary thrombocytopenia; E11.622 Type 2 diabetes mellitus with other skin ulcer; F17.200 Nicotine dependence, unspecified, uncomplicated
CPT/HCPCS: 11042; 36415; 82962-TC; 85610-TC; 85730-TC; A6253; A6402; A6452

== ENCOUNTER 2018-04-15 10:22 | Inpatient (IN) | payer MEDICARE, OTHER ==
[2018-04-05 12:35] LABS: BASOPHILS % (AUTO) 0.4 % (0.0-2.0); EOSINOPHILS % (AUTO) 5.5 % (0.0-6.0); HEMATOCRIT 33 % (39-51); HEMOGLOBIN 11.2 g/dL (13.5-17.5); LYMPHOCYTES # (AUTO) 0.9 /CMM (0.8-4.8); LYMPHOCYTES % (AUTO) 20.8 % (20.0-44.0); MEAN CORPUSCULAR HGB CONC 34 g/dl (31.0-36.0); MEAN CORPUSCULAR VOLUME 98 fL (80-96); MONOCYTES # (AUTO) 0.7 /CMM (0.1-1.30); MONOCYTES % (AUTO) 17.4 % (2.0-12.0); NEUTROPHILS # (AUTO) 2.3 /CMM (1.8-8.9); NEUTROPHILS % (AUTO) 55.9 % (43.0-81.0); PLATELET COUNT (AUTO) 98 /CMM (150-450); RED BLOOD CELL COUNT(AUTO) 3.31 MIL/uL (4.5-6.0); WHITE BLOOD COUNT (AUTO) 4.2 K/uL (4.3-11.0)
[2018-04-05 12:52] LABS: PREALBUMIN 12.9 MG/DL (18.0-35.7)
[2018-04-05 12:53] LABS: ALBUMIN 2.9 g/dL (3.4-5.0); BILIRUBIN,DIRECT 0.3 mg/dL (0.0-0.2); BILIRUBIN,TOTAL 0.9 mg/dL (0.2-1.0); CALCIUM, SERUM 8.5 mg/dL (8.5-10.1); POTASSIUM 4.8 mmol/L (3.5-5.1); TOTAL PROTEIN, SERUM 7.6 g/dL (6.4-8.2)
[2018-04-05 14:55] LABS: EOSINOPHILS % (MANUAL) 3 % (0-4); LYMPHOCYTES % (MANUAL) 22 % (16-48); MONOCYTES % (MANUAL) 15 % (0-11.0); NEUTROPHILS % (MANUAL) 60 (42-76)
[~2018-04-15] VITALS: Ht 180.3 cm; Wt 113.9 kg
[2018-04-15] MEDS ORDERED: FENTANYL PF 100MCG/2ML AMPUL ONE ×2 (12:12→12:13)
[2018-04-15] MEDS ORDERED: LIDOCAINE 1%-EPI 1:100,000 20 ML VIAL ONE (12:32)
[2018-04-15] MEDS ORDERED: MINERAL OIL 10 ML VIAL MC ONE (12:32)
[2018-04-15] MEDS ORDERED: BUPIVACAINE 0.25% 75 MG/30 ML VIAL ONE (13:04)
[2018-04-15] MEDS ORDERED: HYDROMORPHONE INJ 2 MG/ML DISP.SYRIN ONE (14:08)
[2018-04-15 14:30] VITALS: BP 106/57
--- NOTE | 2018-04-15 14:30 | NUR ---
PER DR KRUEGER, ADMIT PATIENT FOR POST-OP MANAGEMENT, CALL [facility] FOR ADMITTING ORDERS, LEAVE WOUND VAC OF 125 MMHG LOW CONTINUOUS, LEAVE DRESSING DRY AND INTACT, WBAT
[2018-04-15 14:45] VITALS: BP 126/70
[2018-04-15 15:00] VITALS: BP 109/66
[2018-04-15 15:15] VITALS: BP 99/56
[2018-04-15 15:24] VITALS: BP 104/55
[2018-04-15] MEDS ORDERED: DEXTROSE 50%-WATER 50 ML DISP.SYRIN IV PRN (17:30)
[2018-04-15] MEDS ORDERED: HYDROCODONE/APAP 5/325MG 1 EACH TABLET PO PRN (17:30)
--- NOTE | 2018-04-15 17:34 | NUR ---
MS ADMIT FROM ER AFTER REPORT RECEIVED AT BEDSIDE. PATIENT ORIENTED TO PRIMARY RN, UNIT, ROOM, BED, AND UNIT POLICIES REGARDING PATIENT CARE AND VISITING HOURS. PATIENT WEIGH BY BEDSCALE AND ENCOURAGED TO CALL IF THEY NEED ANYTHING. ALL QUESTIONS AND CONCERNS ADDRESSED. PATIENT VERBALIZED UNDERSTANDING.
[2018-04-15] MEDS: BLOOD SUGAR DIAGNOSTIC 1 EACH STRIP IN SCH ×2 (18:18→21:15)
[2018-04-15] MEDS ORDERED: CLONIDINE HCL 0.1 MG TABLET PO PRN (18:30)
[2018-04-15] MEDS ORDERED: BISACODYL (5 MG) 5 MG TABLET.DR PO PRN (18:30)
--- NOTE | 2018-04-15 18:59 | NUR ---
CHANGE OF SHIFT REPORT PT RESTING COMFORTABLY IN BED. NO S/S OR C/O PAIN OR DISTRESS NOTED. SIDE RAILS UP X2, CALL LIGHT LEFT WITHIN REACH. PT KEPT CLEAN, DRY, AND COMFORTABLE. NO SIGNIFICANT CHANGES SINCE ADMISSION. WILL GIVE REPORT TO NING PEREZ.
[2018-04-15] MEDS: MORPHINE SULFATE INJ 4 MG/ML DISP.SYRIN IV PRN (19:53)
[2018-04-15 20:00] VITALS: BP 123/67
[2018-04-15] MEDS: clonazePAM 1 MG TABLET PO SCH (20:59)
[2018-04-15] MEDS: LEVETIRACETAM (250 MG) 250 MG TABLET PO SCH (20:59)
[2018-04-15] MEDS: TEMAZEPAM 15 MG CAPSULE PO PRN (21:00)
--- NOTE | 2018-04-16 06:40 | NUR ---
MS RN NOTES AWAKE & RESPONSIVE. NOT IN ANY DISTRESS. NO SOB NOTED. DENIES ANY PAIN OR DISCOMFORT AT THIS TIME. WITH IV-HL PATENT & INTACT. PT REFUSING AM CARE AT THIS TIME. MONITORED ACCORDINGLY. CALL LIGHT WITHIN REACH. BED IN LOWEST POSITION. SR UP X 2 FOR SAFETY. WILL ENDORSE TO NEXT SHIFT.
[2018-04-16] MEDS: BLOOD SUGAR DIAGNOSTIC 1 EACH STRIP IN SCH ×4 (06:57→21:02)
[2018-04-16] MEDS: INSULIN REGULAR, HUMAN 100 UNIT/ML 3 ML VIAL SQ PRN ×4 (06:58→21:03)
--- NOTE | 2018-04-16 07:30 | NUR ---
MSRN OPENING NOTES. PT RECEIVED A&0X3, WATCHING T.V AND RESTING. PT TOLERATING ROOM AIR WITHOUT SOB OR RESP DISTRESS. PT REPORTING 9/10 PAIN TO LEFT THIGH R/T GRAFT DONOR SITE, WILL ADMIN PO PRN ANALGESIA. PT WITH WOUND VAC TO LOWER LEFT LEG, DRESSING INTACT AND SUCTION STABLE AT 125MMHG. PT WITHOUT IVC. PT REFUSING IVC PLACEMENT, WILL INFORM DR. PT BED IN LOWEST LOCKED POSITION WITH HANDRAILSX2 AND CALL POE WITHIN REACH. PT BRIEFED ON TODAY'S POC AND IS WITHOUT CONCERN OR COMPLAINT.
[2018-04-16] MEDS: PANTOPRAZOLE 40 MG TABLET.DR PO SCH (07:48)
[2018-04-16] MEDS: MORPHINE SULFATE INJ 4 MG/ML DISP.SYRIN IV PRN (07:49)
[2018-04-16] MEDS: DOCUSATE SODIUM 250 MG CAPSULE PO SCH (08:07)
[2018-04-16] MEDS: METOPROLOL TARTRATE 25 MG TABLET PO SCH (08:08)
[2018-04-16] MEDS: LEVETIRACETAM (250 MG) 250 MG TABLET PO SCH ×2 (08:08→20:57)
[2018-04-16] MEDS: FOLIC ACID 1 MG TABLET PO SCH (08:08)
[2018-04-16] MEDS: THIAMINE HCL 100 MG TABLET PO SCH (08:08)
[2018-04-16] MEDS: clonazePAM 1 MG TABLET PO SCH ×4 (08:08→20:57)
[2018-04-16 08:30] VITALS: BP 150/79
--- NOTE | 2018-04-16 10:00 | NUR ---
MSRN NOTES. PT REFUSING IVC PLACEMENT. MD MOORE AND MD HILLIARD AWARE. NO FURTHER ACTION A THIS TIME.
--- NOTE | 2018-04-16 10:17 | NUR ---
PHYTOPATHOLOGY TEACHER DISCHARGE VAC/WOUND TREATMENT ORDERS CLARIFIED WITH DPM DR ZHOU AND DISCUSSED WITH NURSING STAFF.
--- NOTE | 2018-04-16 12:00 | NUR ---
MOSHE NOTES. WOUND NURSE OVIDIO ADDED WOUND VAC INTERVENTIONS. PAGE PRINTED TO SUPPLY TO JARED ORTEGA AND ADDED TO EXITCARE. KERON BATISTA FROM WOUND CARE CENTRE LEFT PT SUPPLIES AND PORTABLE WOUND VAC TO BE USED FOR D/C. WILL ENDORSE TO NIGHT NURSE.
--- NOTE | 2018-04-16 12:10 | NUR ---
MSRN NOTES. LARGE BOX CONTAINING 4 SMALLER BOXES WITH REPORTED WOUND SUPPLIES AND PORTABLE WOUND VAC DELIVERED TO PT ROOM. BELONGINGS LIST UPDATED.
[2018-04-16] MEDS: HYDROCODONE/APAP 10/325MG 1 EA TABLET PO PRN ×3 (12:39→21:31)
[2018-04-16] MEDS: GLUCERNA SHAKE 237 ML CAN PO SCH ×2 (15:11→17:00)
[2018-04-16 16:36] VITALS: BP 139/79
--- NOTE | 2018-04-16 18:08 | NUR ---
MSRN CLOSING NOTES. PT REMAINS A&0X3, WATCHING T.V AND RESTING. PT TOLERATING ROOM AIR WITHOUT RESP DISTRESS AND REPORTING CURRENT PAIN MANAGEMENT ADEQUATE. PT WOUND VAC TO LOWER LEFT LEG AT 125MMHG AND DRESSING CLEAN AND INTACT. NEURO INTACT. PT WITHOUT IVC- MD AWARE. PT REPORTS LACK OF APPETITE AND REFUSED BREAKFAST, LUNCH AND DINNER. SUPPLEMENTS AND SNACK PROVIDED. PT BED IN LOWEST LOCKED POSITION WITH HANDRAILSX2 AND CALL POE WITHIN REACH. ALL DAY NURSE DUTIES ATTENDED TO AND PT IS WITHOUT CONCERN OR COMPLAINT.
--- NOTE | 2018-04-16 19:45 | NUR ---
RN INITIAL NOTES: RECEIVED REPORT FROM KI PEREZ, PT IN BED, AWAKE, A/O X4,ON RA, C/O 01/30 PAIN AWARE OF HIS PAIN MEDICATION DUE AT 2100, AGREE TO WAIT FOR HIS MEDS TO BE DUE. PT HAS NO IV ACCESS, PT BEEN REFUSING FOR REINSERTION, MD AWARE. PT S/P ELECTIVE SPILT THICKNESS SKIN GRAFT OF NON HEALING LLE ULCER, LEFT THIGH DONOR, LEFT CALF GRAFT SITE, DRESSING CD/I, NO ACTIVE BLEEDING NOTED. DRESSING ON LLE IN PLACED, WITH WOUND VAC, SETTING AT 125MMHG WITH SEROSANGUINEOUS DRAINAGE NOTED AT COLLECTION CHAMBER ABOUT 10-20ML. PT ABLE TO MOVE AND WIGGLE TOES, WITH GOOD CAPILLARY REFILL NOTED, PT DENIES ANY NUMBNESS TINGLING SENSATION IN THE LEG. ABLE TO DISTINGUISH BETWEEN SHARP OR BLUNT SENSATION. BLE OFFLOADED. DISCUSSED WITH PT REGARDING PLAN OF CARE. PT UNDERSTAND AND AGREE. SAFETY PRECAUTIONS FOR FALL INITIATED CALL LIGHT IN REACH WILL CONTINUE MONITORING PT.
[2018-04-16 20:00] VITALS: BP 135/76
--- NOTE | 2018-04-16 20:00 | NUR ---
RN NOTES: LARGE BOX IN THE ROOM CONTAINS WOUND VAC AND WOUND VAC SUPPLIES
[2018-04-16 20:21] VITALS: BP 135/76
--- NOTE | 2018-04-16 21:03 | NUR ---
BS 116: BS 116 NO INSULIN COVERAGE GIVEN PER SLIDING SCALE, PT ON CCHO 60GMS DIET, TOLERATING PO INTAKE WELL.
--- NOTE | 2018-04-16 21:31 | NUR ---
PRN NORCO: PT C/O 06/01 LEFT LEG PAIN REQUESTING FOR NORCO, PRN NORCO 10/325 MG TAB PO ADMINISTERED TO THE PT AT THIS TIME, WILL CONTINUE MONITORING AND REASSESSING PT'S PAIN LEVEL
[2018-04-17] MEDS: HYDROCODONE/APAP 10/325MG 1 EA TABLET PO PRN ×4 (01:41→14:21)
--- NOTE | 2018-04-17 01:41 | NUR ---
PRN NORCO: PT C/O 06/01 LEFT LEG PAIN PRN NORCO ADMINISTERED TO THE PT AT THIS TIME.
--- NOTE | 2018-04-17 05:50 | NUR ---
PRN NORCO: PT C/O LEFT LEG PAIN REQUESTING FOR NORCO, PS 7/10, PRN NORCO 10/325 MG ADMINISTERED TO THE PT AT THIS TIME, WILL CONTINUE TO MONITOR AND REASSESS PT
[2018-04-17] MEDS: INSULIN REGULAR, HUMAN 100 UNIT/ML 3 ML VIAL SQ PRN (05:54)
[2018-04-17] MEDS: BLOOD SUGAR DIAGNOSTIC 1 EACH STRIP IN SCH ×4 (05:54→21:28)
--- NOTE | 2018-04-17 05:56 | NUR ---
BS 145: BS 145, PT REFUSED INSULIN COVERAGE, DESPITE PROVIDING EDUCATION
--- NOTE | 2018-04-17 06:50 | NUR ---
RN CLOSING NOTES: PT IN BED, AWAKE, LAST PAIN MEDS ADMINISTERED AT 0540AM. NO IV ACCESS PT BEEN REFUSING FOR REINSERTION, MD AWARE. LEFT LEG DRESSING REMAINS C/D/I, CONNECTED TO WOUND VAC AT 125MMHG, DRAINAGE ON COLLECTION CHAMBER REMAINS LESS THAN 20ML. VS REMAINS STABLE, NEEDS ATTENDED. PT FOR DC ON THURSDAY NEEDS SNF PLACEMENT. SAFETY PRECAUTIONS FOR FALL REMAINS ENGAGED, CALL LGHT IN REACH. WILL ENDORSE TO DAY RN FOR NORBERTO.
--- NOTE | 2018-04-17 07:30 | NUR ---
RN MS NOTES PT IN BED, AWAKE, ALERT AND ORIENTED, STATED THAT HE NEEDS HIS PAIN MEDICATION, PT UNABLE TO SCALE HIS PAIN, STATED IT IS DIFFERENT ALL THE TIME, NO FACIAL GRIMACING OR MOANING, CALL LIGHT WITHIN REACH, NEEDS ATTENDED.
[2018-04-17 08:00] VITALS: BP 142/84
[2018-04-17] MEDS: GLUCERNA SHAKE 237 ML CAN PO SCH ×2 (08:10→16:27)
[2018-04-17] MEDS: THIAMINE HCL 100 MG TABLET PO SCH (08:11)
[2018-04-17] MEDS: FOLIC ACID 1 MG TABLET PO SCH (08:11)
[2018-04-17] MEDS: PANTOPRAZOLE 40 MG TABLET.DR PO SCH (08:11)
[2018-04-17] MEDS: LEVETIRACETAM (250 MG) 250 MG TABLET PO SCH ×2 (08:11→21:15)
[2018-04-17] MEDS: METOPROLOL TARTRATE 25 MG TABLET PO SCH (08:11)
[2018-04-17] MEDS: clonazePAM 1 MG TABLET PO SCH ×4 (08:11→21:15)
[2018-04-17] MEDS: DOCUSATE SODIUM 250 MG CAPSULE PO SCH (09:00)
--- NOTE | 2018-04-17 12:30 | NUR ---
RN MS NOTES PT IN BED, ASLEEP, EASY TO AROUSE, ALERT AND ORIENTED, NO COMPLAINT AT THIS TIME, BLOOD SUGAR CHECKED, PT REFUSED INSULIN, PT WITH POOR PO INTAKE, STATED THAT FOOD WILL MAKE HIS BLOOD SUGAR HIGH, PT EDUCATION PROVIDED REGARDING DIABETIC DIET, PT VERBALIZED UNDERSTANDING, DR. MOORE INFORMED, CALL LIGHT WITHIN REACH, NEEDS ATTENDED.
--- NOTE | 2018-04-17 15:36 | NUR ---
RN MS NOTES RECEIVED LIST OF HOME MEDS FROM PT'S BOARD AND CARE, DR. TERESA CALLES, PER , OK TO CONTINUE WITH THE FOLLOWING: ALLOPURINOL, PLAVIX, FESO4, GABAPENTIN, MS ER, METFORMIN, VITAMIN C, MULTIVITAMINS.
[2018-04-17 16:00] VITALS: BP 139/82
[2018-04-17] MEDS: GABAPENTIN 300 MG CAPSULE PO SCH (16:27)
[2018-04-17] MEDS: ALLOPURINOL 100 MG TABLET PO SCH (16:27)
[2018-04-17] MEDS: CLOPIDOGREL BISULFATE 75 MG TABLET PO SCH (16:28)
[2018-04-17] MEDS: METFORMIN 500 MG TABLET PO SCH (16:28)
[2018-04-17] MEDS: MORPHINE SULFATE SR 15 MG TABLET.SA PO SCH ×2 (16:29→20:33)
--- NOTE | 2018-04-17 18:44 | NUR ---
RN MS NOTES PT IN BED, AWAKE, ALERT AND ORIENTED, WATCHING TV, PAIN MEDICATION GIVEN FOR PAIN MANAGEMENT, PM MEDS GIVEN, WOUND VAC ATTACHED TO LEFT LEG, DRESSING DRY AND INTACT, BLOOD SUGAR CHECKED, REFUSED INSULIN, CALL LIGHT WITHIN REACH, ALL NEEDS ATTENDED.
[2018-04-17 19:51] VITALS: BP 127/82
[2018-04-17] MEDS: TEMAZEPAM 15 MG CAPSULE PO PRN (21:15)
--- NOTE | 2018-04-18 06:00 | NUR ---
MS RN NOTES BS CHECKED 136. PT REFUSED TO HAVE INSULIN AT THIS TIME. EXPLAINED TO PT IMPORTANCE OF INSULIN COVERAGE IN HIS POC BUT PT STILL REFUSED. WILL CONTINUE TO MONITOR.
[2018-04-18] MEDS: BLOOD SUGAR DIAGNOSTIC 1 EACH STRIP IN SCH ×4 (06:14→21:19)
--- NOTE | 2018-04-18 06:27 | NUR ---
MS RN NOTES AWAKE & RESPONSIVE. NOT IN ANY DISTRESS. NO SOB NOTED. DENIES ANY PAIN OR DISCOMFORT AT THIS TIME. PT REFUSING AM CARE AT THIS TIME. MONITORED ACCORDINGLY. CALL LIGHT WITHIN REACH. BED IN LOWEST POSITION. SR UP X 2 FOR SAFETY. WILL ENDORSE TO NEXT SHIFT.
--- NOTE | 2018-04-18 07:30 | NUR ---
RN MS NOTES PT IN BED, ASLEEP, EASY TO AROUSE, ALERT AND ORIENTED, DENIES PAIN AT THIS TIME, BREATHING PATTERN NORMAL, WITH WOUND VAC IN PLACE, DRESSING TO LEFT LEG INTACT AND DRY, CALL LIGHT WITHIN REACH.
[2018-04-18 08:00] VITALS: BP 122/76
[2018-04-18] MEDS: FERROUS SULFATE (325 MG) 325 MG/TAB TABLET PO SCH (09:00)
[2018-04-18] MEDS: DOCUSATE SODIUM 250 MG CAPSULE PO SCH (09:00)
[2018-04-18] MEDS: GLUCERNA SHAKE 237 ML CAN PO SCH ×2 (09:00→16:21)
[2018-04-18] MEDS: GABAPENTIN 300 MG CAPSULE PO SCH ×3 (09:00→16:22)
[2018-04-18] MEDS: THIAMINE HCL 100 MG TABLET PO SCH (09:00)
[2018-04-18] MEDS: MULTIVITAMINS,THERAGRAN 1 UDTAB TABLET PO SCH (09:00)
[2018-04-18] MEDS: ALLOPURINOL 100 MG TABLET PO SCH ×2 (09:00→16:22)
[2018-04-18] MEDS: ASCORBIC ACID 500 MG TABLET PO SCH (09:00)
[2018-04-18] MEDS: clonazePAM 1 MG TABLET PO SCH ×4 (09:01→21:19)
[2018-04-18] MEDS: MORPHINE SULFATE SR 15 MG TABLET.SA PO SCH ×3 (09:01→16:22)
[2018-04-18] MEDS: CLOPIDOGREL BISULFATE 75 MG TABLET PO SCH (09:01)
[2018-04-18] MEDS: METOPROLOL TARTRATE 25 MG TABLET PO SCH (09:01)
[2018-04-18] MEDS: LEVETIRACETAM (250 MG) 250 MG TABLET PO SCH ×2 (09:01→21:19)
[2018-04-18] MEDS: PANTOPRAZOLE 40 MG TABLET.DR PO SCH (09:01)
[2018-04-18] MEDS: METFORMIN 500 MG TABLET PO SCH ×2 (09:02→16:22)
[2018-04-18] MEDS: FOLIC ACID 1 MG TABLET PO SCH (09:07)
--- NOTE | 2018-04-18 12:56 | NUR ---
RN MS NOTES PT IN BED, AWAKE, ALERT AND ORIENTED, WATCHING TV, DUE MEDICATIONS GIVEN ORDERED, BS CHECKED, NO S/S OF HYPO/HYPERGLYCEMIA NOTED, CALL LIGHT WITHIN REACH, NEEDS ATTENDED.
--- NOTE | 2018-04-18 15:45 | NUR ---
RN MS NOTES RECEIVED RESULT OF PT'S MRSA SCREEN, PT IS (+) MRSA NARES, PLACED PT ON CONTACT ISOLATION PRECAUTIONS, DR. MOORE INFORMED, ORDERED BACTROBAN OINTMENT, PT AND FAMILY INFORMED, VERBALIZED UNDERSTANDING.
[2018-04-18 16:00] VITALS: BP 113/75
[2018-04-18] MEDS: MUPIROCIN OINT 2% 22 GM TUBE SCH ×2 (16:21→21:26)
--- NOTE | 2018-04-18 18:20 | NUR ---
RN MS NOTES PT IN BED, AWAKE, ALERT AND ORIENTED, SPEAKING ON HIS CELLPHONE, PM MEDS GIVEN, PM CARE RENDERED, WOUND VAC ATTACHED, DRESSING TO LEFT LEG INTACT AND DRY, ALL NEEDS ATTENDED.
--- NOTE | 2018-04-18 19:35 | NUR ---
MS RN INITIAL NOTE PT IS IN BED AWAKE AND ALERT, ABLE TO MAKE NEEDS KNOWN. NO SIGNS OF SOB OR DISTRESS, BREATHING EVENLY AND UNLABORED ON RA. PT HAS A WOUND VACC ON LEFT LOWER LEG AT 125 mmHg. NO IV SITE, PT REFUSED, MD IS AWARE. BED IS IN LOW AND LOCKED POSITION, CALL LIGHT WITHIN REACH. WILL CONTINUE TO MONITOR PT.
[2018-04-18 19:56] VITALS: BP 138/81
[2018-04-18] MEDS: HYDROCODONE/APAP 10/325MG 1 EA TABLET PO PRN (21:19)
[2018-04-19] MEDS: BLOOD SUGAR DIAGNOSTIC 1 EACH STRIP IN SCH ×2 (06:21→11:50)
--- NOTE | 2018-04-19 06:22 | NUR ---
MS RN CLOSING NOTE PT IS IN BED RESTING. NO SIGNS OF SOB OR DISTRESS, BREATHING EVENLY AND UNLABORED ON RA. WOUND VACC IN PLACE. DENIES PAIN AT THIS TIME. NO ACUTE CHANGES THROUGHOUT THE SHIFT. ALL NEEDS WERE ANTICIPATED AND MET. BED IS IN LOW AND LOCKED POSITION, CALL LIGHT WITHIN REACH. WILL ENDORSE TO DAYSHIFT
--- NOTE | 2018-04-19 07:35 | NUR ---
MS RN OPENING NOTE PT IS IN BED AWAKE AND ALERT AND ORIENTED, ABLE TO MAKE NEEDS KNOWN. NO SIGNS OF SOB OR DISTRESS, RESPIRATIONS EVEN AND UNLABORED ON RA. PT HAS A WOUND VACC ON LEFT LOWER LEG AT 125 mmHg. NO IV SITE, PT REFUSED, MD IS AWARE. BED IS IN LOW AND LOCKED POSITION,SAFETY MEASURES IN PLACE, CALL LIGHT WITHIN REACH. WILL CONTINUE TO MONITOR .
[2018-04-19 08:00] VITALS: BP 117/75
[2018-04-19] MEDS: GABAPENTIN 300 MG CAPSULE PO SCH ×2 (08:27→12:04)
[2018-04-19] MEDS: LEVETIRACETAM (250 MG) 250 MG TABLET PO SCH (08:27)
[2018-04-19] MEDS: PANTOPRAZOLE 40 MG TABLET.DR PO SCH (08:27)
[2018-04-19 08:28] VITALS: BP 117/75
[2018-04-19] MEDS: FERROUS SULFATE (325 MG) 325 MG/TAB TABLET PO SCH (08:28)
[2018-04-19] MEDS: THIAMINE HCL 100 MG TABLET PO SCH (08:28)
[2018-04-19] MEDS: METFORMIN 500 MG TABLET PO SCH (08:28)
[2018-04-19] MEDS: MORPHINE SULFATE SR 15 MG TABLET.SA PO SCH ×2 (08:28→12:04)
[2018-04-19] MEDS: ASCORBIC ACID 500 MG TABLET PO SCH (08:28)
[2018-04-19] MEDS: MULTIVITAMINS,THERAGRAN 1 UDTAB TABLET PO SCH (08:28)
[2018-04-19] MEDS: ALLOPURINOL 100 MG TABLET PO SCH (08:28)
[2018-04-19] MEDS: METOPROLOL TARTRATE 25 MG TABLET PO SCH (08:28)
[2018-04-19] MEDS: clonazePAM 1 MG TABLET PO SCH ×2 (08:28→12:04)
[2018-04-19] MEDS: CLOPIDOGREL BISULFATE 75 MG TABLET PO SCH (08:28)
[2018-04-19] MEDS: DOCUSATE SODIUM 250 MG CAPSULE PO SCH (08:29)
[2018-04-19] MEDS: FOLIC ACID 1 MG TABLET PO SCH (08:29)
[2018-04-19] MEDS: GLUCERNA SHAKE 237 ML CAN PO SCH (08:30)
[2018-04-19] MEDS: MUPIROCIN OINT 2% 22 GM TUBE SCH (08:31)
[2018-04-19] MEDS: INSULIN REGULAR, HUMAN 100 UNIT/ML 3 ML VIAL SQ PRN (11:53)
--- NOTE | 2018-04-19 12:00 | NUR ---
RN NOTES PATIENT WITH DISCHARGE ORDERS, PATIENT AWARE, NO IV SITE PT REFUSED PICTURES OF SKIN IN CHART, WOUND VAC NOT TO BE REMOVED ONLY CONNECT TO PORTABLE WOUND VAC ALL SUPPLIES TO BE TAKEN WITH PT TO FACILITY. WILL CONTINUE TO ASSIST WITH DISCHARGE PROCESS
--- NOTE | 2018-04-19 14:20 | NUR ---
MS MANAGER OF CLINICAL NOTE PT IS IN BED AWAKE AND ALERT AND ORIENTED, ABLE TO MAKE NEEDS KNOWN. NO SIGNS OF SOB OR DISTRESS, RESPIRATIONS EVEN AND UNLABORED ON RA. PT HAS A WOUND VACC ON LEFT LOWER LEG AT 125 mmHg CONNECTED TO PORTABLE VACC, WITH NO COMPLICATIONS. NO IV SITE, ID BAND REMOVED.ALL DISCHARGE INSTRUCTIONS REVIEWED WITH PATIENT AND MOTHER AND CALLED SNF RN TO GIVE REPORT AND GAVE REPORT TO EMT TRANSPORTERS FOR CONTINUITY OF CARE, ALL BELONGINGS ACCOUNTED FOR ALONG WITH [employer] PORTABLE WOUND VAC SUPPLIES Addendum: 04/19/18 at 1835 by MIRIAN MARTINES RN RN NOTES CALLED [employer] MULTIPLE TIMES FOR SUPERVISOR HOT STRIP MILL OF IN HOUSE WOUND VAC NO ANSWER
== END 2018-04-19 14:20 | DRG 264 ==
LOC: DS 10:22 → MEDSG2 14:46
PROVIDERS: ADMIT Podiatrist Foot & Ankle Surgery; ATTEND Podiatrist Foot & Ankle Surgery
PROC: 0HBJXZZ Excision of Left Upper Leg Skin, External Approach (ICD-10-PCS; 2018-04-15)
PROC: 0HRLX74 Replacement of Left Lower Leg Skin with Autologous Tissue Substitute, Partial Thickness, External Approach (ICD-10-PCS; principal; 2018-04-15 12:00)
DX: I87.8 Other specified disorders of veins (principal); D61.818 Other pancytopenia; E11.42 Type 2 diabetes mellitus with diabetic polyneuropathy; E11.51 Type 2 diabetes mellitus with diabetic peripheral angiopathy without gangrene; I87.2 Venous insufficiency (chronic) (peripheral); K74.60 Unspecified cirrhosis of liver; G89.29 Other chronic pain; F32.9 Major depressive disorder, single episode, unspecified; Z88.2 Allergy status to sulfonamides; I10 Essential (primary) hypertension; Z86.718 Personal history of other venous thrombosis and embolism; F41.9 Anxiety disorder, unspecified; Z86.19 Personal history of other infectious and parasitic diseases; Z87.891 Personal history of nicotine dependence
CPT/HCPCS: 36415; 80048-TC; 80076-TC; 82962-TC; 84134-TC; 85025-TC; 85610-TC; 85730-TC; 86850-TC; 86900-TC; 87081-TC; A6209; A6402; J0690; J1170; J1815; J2001; J2270; J3010; J3490

== ENCOUNTER 2018-04-20 11:22 | Outpatient (CLI) | payer OTHER, MEDICARE | END 2018-04-20 23:59 | disposition home health service (06) | LOC: WOU 11:22 | PROVIDERS: ATTEND Podiatrist Foot & Ankle Surgery | DX: Z48.817 Encounter for surgical aftercare following surgery on the skin and subcutaneous tissue (principal); I87.2 Venous insufficiency (chronic) (peripheral); B18.2 Chronic viral hepatitis C; D69.59 Other secondary thrombocytopenia; E11.9 Type 2 diabetes mellitus without complications; I10 Essential (primary) hypertension; F10.20 Alcohol dependence, uncomplicated; Y90.9 Presence of alcohol in blood, level not specified; F17.200 Nicotine dependence, unspecified, uncomplicated; Z79.84 Long term (current) use of oral hypoglycemic drugs | CPT/HCPCS: A6253; A6402; G0463 ==

== ENCOUNTER 2018-04-26 10:18 | Outpatient (CLI) | payer OTHER, MEDICARE | END 2018-04-26 23:59 | disposition home health service (06) | LOC: WOU 10:18 | PROVIDERS: ATTEND Podiatrist Foot & Ankle Surgery | DX: Z48.817 Encounter for surgical aftercare following surgery on the skin and subcutaneous tissue (principal); E11.59 Type 2 diabetes mellitus with other circulatory complications; I87.2 Venous insufficiency (chronic) (peripheral); D69.59 Other secondary thrombocytopenia; B18.2 Chronic viral hepatitis C; F17.200 Nicotine dependence, unspecified, uncomplicated; Z88.2 Allergy status to sulfonamides | CPT/HCPCS: A6253; A6402 ×2; G0463 ==

== ENCOUNTER 2018-05-24 09:45 | Outpatient (CLI) | payer MEDICARE, OTHER ==
[~2018-05-24 09:45] MED LIST changes: +CLON1TAB4 PO; -CLON1TAB5 PO
== END 2018-05-24 23:59 | disposition home health service (06) ==
LOC: WOU 09:45
PROVIDERS: ATTEND Podiatrist Foot & Ankle Surgery
DX: I87.312 Chronic venous hypertension (idiopathic) with ulcer of left lower extremity (principal); T86.821 Skin graft (allograft) (autograft) failure; L97.222 Non-pressure chronic ulcer of left calf with fat layer exposed; E11.622 Type 2 diabetes mellitus with other skin ulcer; B18.2 Chronic viral hepatitis C; D69.59 Other secondary thrombocytopenia; I10 Essential (primary) hypertension; F17.200 Nicotine dependence, unspecified, uncomplicated; F10.21 Alcohol dependence, in remission; Z88.2 Allergy status to sulfonamides
CPT/HCPCS: 11042; 11045; A6253; A6402; A6452; Z7610

== ENCOUNTER 2018-05-31 10:30 | Outpatient (CLI) | payer MEDICARE, OTHER | END 2018-05-31 23:59 | disposition home health service (06) | LOC: WOU 10:30 | PROVIDERS: ATTEND Podiatrist Foot & Ankle Surgery | DX: I87.312 Chronic venous hypertension (idiopathic) with ulcer of left lower extremity (principal); T86.821 Skin graft (allograft) (autograft) failure; E11.622 Type 2 diabetes mellitus with other skin ulcer; L97.222 Non-pressure chronic ulcer of left calf with fat layer exposed; I87.2 Venous insufficiency (chronic) (peripheral); D69.59 Other secondary thrombocytopenia; B18.2 Chronic viral hepatitis C; I10 Essential (primary) hypertension; F17.200 Nicotine dependence, unspecified, uncomplicated | CPT/HCPCS: 11042; 11045; A6402; A6452; J7040; Z7610 ==

== ENCOUNTER 2018-06-07 10:32 | Outpatient (CLI) | payer MEDICARE, OTHER ==
[~2018-06-07 10:32] MED LIST changes: -CLON1TAB4 PO; +CLON1TAB5 PO
== END 2018-06-07 23:59 | disposition home health service (06) ==
LOC: WOU 10:32
PROVIDERS: ATTEND Podiatrist Foot & Ankle Surgery
DX: I87.312 Chronic venous hypertension (idiopathic) with ulcer of left lower extremity (principal); T86.821 Skin graft (allograft) (autograft) failure; E11.622 Type 2 diabetes mellitus with other skin ulcer; L97.222 Non-pressure chronic ulcer of left calf with fat layer exposed; D69.59 Other secondary thrombocytopenia; F10.20 Alcohol dependence, uncomplicated; B19.20 Unspecified viral hepatitis C without hepatic coma; I10 Essential (primary) hypertension
CPT/HCPCS: 11042; 11045; 82962-TC; A6402

== ENCOUNTER 2018-06-14 10:37 | Outpatient (CLI) | payer MEDICARE, OTHER | END 2018-06-14 23:59 | disposition home health service (06) | LOC: WOU 10:37 | PROVIDERS: ATTEND Podiatrist Foot & Ankle Surgery | DX: T86.821 Skin graft (allograft) (autograft) failure (principal); I87.312 Chronic venous hypertension (idiopathic) with ulcer of left lower extremity; E11.622 Type 2 diabetes mellitus with other skin ulcer; L97.222 Non-pressure chronic ulcer of left calf with fat layer exposed; D69.59 Other secondary thrombocytopenia; F17.200 Nicotine dependence, unspecified, uncomplicated; F10.20 Alcohol dependence, uncomplicated | CPT/HCPCS: 11042; 11045; A6402 ×2; Z7610 ==

== ENCOUNTER 2018-06-21 10:35 | Outpatient (CLI) | payer MEDICARE, OTHER ==
[~2018-06-21 10:35] MED LIST changes: +SULFAMETHOXAZOLE/TRIMETHOPRIM 10 ML VIAL IV ONE
== END 2018-06-21 23:59 | disposition home health service (06) ==
LOC: WOU 10:35
PROVIDERS: ATTEND Podiatrist Foot & Ankle Surgery
DX: I87.312 Chronic venous hypertension (idiopathic) with ulcer of left lower extremity (principal); L97.222 Non-pressure chronic ulcer of left calf with fat layer exposed; T86.821 Skin graft (allograft) (autograft) failure; E11.622 Type 2 diabetes mellitus with other skin ulcer; D69.59 Other secondary thrombocytopenia; F10.20 Alcohol dependence, uncomplicated; I10 Essential (primary) hypertension; F17.200 Nicotine dependence, unspecified, uncomplicated; Z79.84 Long term (current) use of oral hypoglycemic drugs; Z88.2 Allergy status to sulfonamides
CPT/HCPCS: 11042; 11045; A6402; A6452; J3490; Z7610

== ENCOUNTER 2018-06-23 10:05 | Outpatient (CLI) | payer MEDICARE, OTHER ==
[~2018-06-23 10:05] MED LIST changes: -SULFAMETHOXAZOLE/TRIMETHOPRIM 10 ML VIAL IV ONE
== END 2018-06-23 23:59 | disposition home health service (06) ==
LOC: WOU 10:05
PROVIDERS: ATTEND Specialist
DX: T86.821 Skin graft (allograft) (autograft) failure (principal); I87.312 Chronic venous hypertension (idiopathic) with ulcer of left lower extremity; D69.59 Other secondary thrombocytopenia; L97.222 Non-pressure chronic ulcer of left calf with fat layer exposed; E11.622 Type 2 diabetes mellitus with other skin ulcer; K74.60 Unspecified cirrhosis of liver; F17.210 Nicotine dependence, cigarettes, uncomplicated; B19.20 Unspecified viral hepatitis C without hepatic coma; F10.20 Alcohol dependence, uncomplicated; Y90.9 Presence of alcohol in blood, level not specified; Z79.84 Long term (current) use of oral hypoglycemic drugs
CPT/HCPCS: A6402; A6452; G0463; Z7610

== ENCOUNTER 2018-06-28 11:01 | Outpatient (CLI) | payer MEDICARE, OTHER | END 2018-06-28 23:59 | disposition home health service (06) | LOC: WOU 11:01 | PROVIDERS: ATTEND Podiatrist Foot & Ankle Surgery | DX: I87.332 Chronic venous hypertension (idiopathic) with ulcer and inflammation of left lower extremity (principal); L97.822 Non-pressure chronic ulcer of other part of left lower leg with fat layer exposed; L03.116 Cellulitis of left lower limb; T86.821 Skin graft (allograft) (autograft) failure; D69.59 Other secondary thrombocytopenia; F17.200 Nicotine dependence, unspecified, uncomplicated; E11.622 Type 2 diabetes mellitus with other skin ulcer; I10 Essential (primary) hypertension; F10.20 Alcohol dependence, uncomplicated; Z79.84 Long term (current) use of oral hypoglycemic drugs; Z79.891 Long term (current) use of opiate analgesic | CPT/HCPCS: 11042; A6402 ×2; A6452; Z7610 ==

== ENCOUNTER 2018-07-05 12:05 | Outpatient (CLI) | payer MEDICARE, OTHER | END 2018-07-05 23:59 | disposition home health service (06) | LOC: WOU 12:05 | PROVIDERS: ATTEND Podiatrist Foot & Ankle Surgery | DX: I87.332 Chronic venous hypertension (idiopathic) with ulcer and inflammation of left lower extremity (principal); L97.222 Non-pressure chronic ulcer of left calf with fat layer exposed; T86.821 Skin graft (allograft) (autograft) failure; D69.59 Other secondary thrombocytopenia; E11.622 Type 2 diabetes mellitus with other skin ulcer; F17.200 Nicotine dependence, unspecified, uncomplicated; I10 Essential (primary) hypertension; F10.20 Alcohol dependence, uncomplicated; Z79.84 Long term (current) use of oral hypoglycemic drugs; Z79.891 Long term (current) use of opiate analgesic | CPT/HCPCS: 11042; A6253; A6402; A6452; Z7610 ==

== ENCOUNTER 2018-07-12 10:17 | Outpatient (CLI) | payer MEDICARE, OTHER | END 2018-07-12 23:59 | disposition home health service (06) | LOC: WOU 10:17 | PROVIDERS: ATTEND Podiatrist Foot & Ankle Surgery | DX: I87.312 Chronic venous hypertension (idiopathic) with ulcer of left lower extremity (principal); T86.821 Skin graft (allograft) (autograft) failure; L97.222 Non-pressure chronic ulcer of left calf with fat layer exposed; E11.622 Type 2 diabetes mellitus with other skin ulcer; D69.59 Other secondary thrombocytopenia; I10 Essential (primary) hypertension; F17.200 Nicotine dependence, unspecified, uncomplicated; F10.20 Alcohol dependence, uncomplicated; Z79.84 Long term (current) use of oral hypoglycemic drugs; Z79.891 Long term (current) use of opiate analgesic | CPT/HCPCS: 11042; 11045; A6402; A6452; Z7610 ==

== ENCOUNTER 2018-07-19 10:30 | Outpatient (CLI) | payer MEDICARE, OTHER | END 2018-07-19 23:59 | disposition home health service (06) | LOC: WOU 10:30 | PROVIDERS: ATTEND Podiatrist Foot & Ankle Surgery | DX: I87.312 Chronic venous hypertension (idiopathic) with ulcer of left lower extremity (principal); L97.222 Non-pressure chronic ulcer of left calf with fat layer exposed; T86.821 Skin graft (allograft) (autograft) failure; I87.2 Venous insufficiency (chronic) (peripheral); D69.59 Other secondary thrombocytopenia; E11.9 Type 2 diabetes mellitus without complications; F17.200 Nicotine dependence, unspecified, uncomplicated; F10.20 Alcohol dependence, uncomplicated; I10 Essential (primary) hypertension; Z79.84 Long term (current) use of oral hypoglycemic drugs; Z79.891 Long term (current) use of opiate analgesic | CPT/HCPCS: 11042; 11045; 82962; A6402; A6452; Z7610 ×2 ==

== ENCOUNTER 2018-07-29 10:30 | Outpatient (CLI) | payer MEDICARE, OTHER | END 2018-07-29 23:59 | disposition home health service (06) | LOC: WOU 10:30 | PROVIDERS: ATTEND Podiatrist Foot & Ankle Surgery | DX: I87.312 Chronic venous hypertension (idiopathic) with ulcer of left lower extremity (principal); L97.822 Non-pressure chronic ulcer of other part of left lower leg with fat layer exposed; E11.622 Type 2 diabetes mellitus with other skin ulcer; L97.222 Non-pressure chronic ulcer of left calf with fat layer exposed; D69.59 Other secondary thrombocytopenia; T86.821 Skin graft (allograft) (autograft) failure; I10 Essential (primary) hypertension; K74.69 Other cirrhosis of liver; Z86.19 Personal history of other infectious and parasitic diseases; Z88.2 Allergy status to sulfonamides | CPT/HCPCS: 11042; 11045 ×2; A6402; A6452; Z7610 ==

== ENCOUNTER 2018-08-05 10:36 | Outpatient (CLI) | payer MEDICARE, OTHER ==
[~2018-08-05 10:36] MED LIST changes: +CT SWABBABLE VALVE TRANS SET 1 EA INFUS.SET MC ONE; +IOHEXOL-300 100 ML VIAL IV ONE; +IV NS 0.9% 250 ML IV ONE
== END 2018-08-05 23:59 | disposition home health service (06) ==
LOC: WOU 10:36
PROVIDERS: ATTEND Podiatrist Foot & Ankle Surgery
DX: T86.821 Skin graft (allograft) (autograft) failure (principal); I87.2 Venous insufficiency (chronic) (peripheral); L97.222 Non-pressure chronic ulcer of left calf with fat layer exposed; D69.59 Other secondary thrombocytopenia; E11.622 Type 2 diabetes mellitus with other skin ulcer; I87.312 Chronic venous hypertension (idiopathic) with ulcer of left lower extremity; Z86.19 Personal history of other infectious and parasitic diseases; Z98.890 Other specified postprocedural states; F17.200 Nicotine dependence, unspecified, uncomplicated; I10 Essential (primary) hypertension; H91.92 Unspecified hearing loss, left ear; Z79.84 Long term (current) use of oral hypoglycemic drugs; Z79.899 Other long term (current) drug therapy
CPT/HCPCS: 11042; 11045; A6402; A6452; Z7610; J7050; Q9967

== ENCOUNTER 2018-08-12 10:33 | Outpatient (CLI) | payer MEDICARE, OTHER ==
[~2018-08-12 10:33] MED LIST changes: -CT SWABBABLE VALVE TRANS SET 1 EA INFUS.SET MC ONE; -IOHEXOL-300 100 ML VIAL IV ONE; -IV NS 0.9% 250 ML IV ONE
== END 2018-08-12 23:59 | disposition home health service (06) ==
LOC: WOU 10:33
PROVIDERS: ATTEND Podiatrist Foot & Ankle Surgery
DX: I87.312 Chronic venous hypertension (idiopathic) with ulcer of left lower extremity (principal); L97.822 Non-pressure chronic ulcer of other part of left lower leg with fat layer exposed; T86.821 Skin graft (allograft) (autograft) failure; K70.30 Alcoholic cirrhosis of liver without ascites; Z86.19 Personal history of other infectious and parasitic diseases; F17.200 Nicotine dependence, unspecified, uncomplicated; E11.622 Type 2 diabetes mellitus with other skin ulcer; D69.59 Other secondary thrombocytopenia
CPT/HCPCS: 11042; 11045; A6402; A6452; Z7610

== ENCOUNTER 2018-08-19 10:27 | Outpatient (CLI) | payer MEDICARE, OTHER | END 2018-08-19 23:59 | disposition home health service (06) | LOC: WOU 10:27 | PROVIDERS: ATTEND Podiatrist Foot & Ankle Surgery | DX: T86.821 Skin graft (allograft) (autograft) failure (principal); I87.312 Chronic venous hypertension (idiopathic) with ulcer of left lower extremity; L97.222 Non-pressure chronic ulcer of left calf with fat layer exposed; E11.621 Type 2 diabetes mellitus with foot ulcer; L97.522 Non-pressure chronic ulcer of other part of left foot with fat layer exposed; D69.59 Other secondary thrombocytopenia; I87.2 Venous insufficiency (chronic) (peripheral); Z88.2 Allergy status to sulfonamides; Z86.19 Personal history of other infectious and parasitic diseases | CPT/HCPCS: 11042; 11045; A6402; A6452; Z7610 ==

== ENCOUNTER 2018-08-26 10:19 | Outpatient (CLI) | payer MEDICARE, OTHER | END 2018-08-26 23:59 | disposition home health service (06) | LOC: WOU 10:19 | PROVIDERS: ATTEND Podiatrist Foot & Ankle Surgery | DX: I87.312 Chronic venous hypertension (idiopathic) with ulcer of left lower extremity (principal); L97.222 Non-pressure chronic ulcer of left calf with fat layer exposed; I87.2 Venous insufficiency (chronic) (peripheral); T86.821 Skin graft (allograft) (autograft) failure; F17.200 Nicotine dependence, unspecified, uncomplicated; D69.59 Other secondary thrombocytopenia; B19.20 Unspecified viral hepatitis C without hepatic coma; L84 Corns and callosities; E11.9 Type 2 diabetes mellitus without complications; Z86.31 Personal history of diabetic foot ulcer; Z88.2 Allergy status to sulfonamides; F10.20 Alcohol dependence, uncomplicated; Y90.9 Presence of alcohol in blood, level not specified | CPT/HCPCS: 11042; 11045; A6402; A6452; Z7610 ==

== ENCOUNTER 2018-09-02 10:25 | Outpatient (CLI) | payer MEDICARE, OTHER | END 2018-09-02 23:59 | disposition home health service (06) | LOC: WOU 10:25 | PROVIDERS: ATTEND Podiatrist Foot & Ankle Surgery | DX: T86.821 Skin graft (allograft) (autograft) failure (principal); I87.312 Chronic venous hypertension (idiopathic) with ulcer of left lower extremity; L97.222 Non-pressure chronic ulcer of left calf with fat layer exposed; D69.59 Other secondary thrombocytopenia; E11.622 Type 2 diabetes mellitus with other skin ulcer; F17.200 Nicotine dependence, unspecified, uncomplicated; Z86.19 Personal history of other infectious and parasitic diseases; I10 Essential (primary) hypertension; F10.20 Alcohol dependence, uncomplicated; Y90.9 Presence of alcohol in blood, level not specified | CPT/HCPCS: 11042; 11045; A6402; A6452; Z7610 ==

== ENCOUNTER 2018-09-09 10:30 | Outpatient (CLI) | payer MEDICARE, OTHER ==
[~2018-09-09 10:30] MED LIST changes: +CLON1TAB12 PO; -CLON1TAB5 PO
== END 2018-09-09 23:59 | disposition home health service (06) ==
LOC: WOU 10:30
PROVIDERS: ATTEND Podiatrist Foot & Ankle Surgery
DX: T86.821 Skin graft (allograft) (autograft) failure (principal); I87.312 Chronic venous hypertension (idiopathic) with ulcer of left lower extremity; L97.822 Non-pressure chronic ulcer of other part of left lower leg with fat layer exposed; L97.222 Non-pressure chronic ulcer of left calf with fat layer exposed; E11.622 Type 2 diabetes mellitus with other skin ulcer; D69.59 Other secondary thrombocytopenia; Z86.19 Personal history of other infectious and parasitic diseases; Z88.2 Allergy status to sulfonamides; F17.200 Nicotine dependence, unspecified, uncomplicated; I10 Essential (primary) hypertension; Z87.19 Personal history of other diseases of the digestive system; Z79.84 Long term (current) use of oral hypoglycemic drugs; Z79.899 Other long term (current) drug therapy
CPT/HCPCS: 11042; 11045; A6402; A6452

== ENCOUNTER 2018-09-13 11:13 | Outpatient (CLI) | payer MEDICARE, OTHER ==
[2018-09-13 13:08] LABS: BASOPHILS % (AUTO) 0.6 % (0.0-2.0); EOSINOPHILS % (AUTO) 4.6 % (0.0-6.0); HEMATOCRIT 36 % (39-51); HEMOGLOBIN 12.3 g/dL (13.5-17.5); LYMPHOCYTES # (AUTO) 1.1 /CMM (0.8-4.8); LYMPHOCYTES % (AUTO) 22.4 % (20.0-44.0); MEAN CORPUSCULAR HGB CONC 34 g/dl (31.0-36.0); MEAN CORPUSCULAR VOLUME 103 fL (80-96); MONOCYTES % (AUTO) 20.2 % (2.0-12.0); NEUTROPHILS # (AUTO) 2.6 /CMM (1.8-8.9); NEUTROPHILS % (AUTO) 52.2 % (43.0-81.0); PLATELET COUNT (AUTO) 66 /CMM (150-450); RED BLOOD CELL COUNT(AUTO) 3.52 MIL/uL (4.5-6.0)
[2018-09-13 13:14] LABS: ALBUMIN 3.4 g/dL (3.4-5.0); BILIRUBIN,TOTAL 0.7 mg/dL (0.2-1.0); CALCIUM, SERUM 8.6 mg/dL (8.5-10.1); CREATININE 1.2 mg/dL (0.6-1.3); POTASSIUM 4.7 mmol/L (3.5-5.1)
[2018-09-13 13:20] LABS: FREE T4 (FREE THYROXINE) 0.94 ng/dL (0.76-1.46); THYROID STIMULATING HORMONE 1.525 uIU/mL (0.358-3.74)
[2018-09-13 13:28] LABS: EOSINOPHILS % (MANUAL) 1 % (0-4); LYMPHOCYTES % (MANUAL) 26 % (16-48); MONOCYTES % (MANUAL) 21 % (0-11.0); NEUTROPHILS % (MANUAL) 52 (42-76)
== END 2018-09-13 23:59 | disposition home or self-care (01) ==
LOC: LAB 11:13
PROVIDERS: ATTEND Internal Medicine Hematology & Oncology
DX: G40.909 Epilepsy, unspecified, not intractable, without status epilepticus (principal); I82.402 Acute embolism and thrombosis of unspecified deep veins of left lower extremity; I10 Essential (primary) hypertension; E11.9 Type 2 diabetes mellitus without complications; D69.6 Thrombocytopenia, unspecified
CPT/HCPCS: 36415; 80053-TC; 82728-TC; 83540-TC; 84439-TC; 84443-TC; 85025-TC

== ENCOUNTER 2018-10-18 10:30 | Outpatient (CLI) | payer MEDICARE, OTHER | END 2018-10-18 23:59 | disposition home health service (06) | LOC: WOU 10:30 | PROVIDERS: ATTEND Podiatrist Foot & Ankle Surgery | DX: I87.312 Chronic venous hypertension (idiopathic) with ulcer of left lower extremity (principal); L97.222 Non-pressure chronic ulcer of left calf with fat layer exposed; T86.821 Skin graft (allograft) (autograft) failure; E11.622 Type 2 diabetes mellitus with other skin ulcer; D69.59 Other secondary thrombocytopenia; F17.210 Nicotine dependence, cigarettes, uncomplicated; Z79.84 Long term (current) use of oral hypoglycemic drugs; Z79.891 Long term (current) use of opiate analgesic | CPT/HCPCS: 11042; A6207; A6402 ==

== ENCOUNTER 2018-11-08 10:30 | Outpatient (CLI) | payer MEDICARE, OTHER | END 2018-11-08 23:59 | disposition home health service (06) | LOC: WOU 10:30 | PROVIDERS: ATTEND Podiatrist Foot & Ankle Surgery | DX: I87.312 Chronic venous hypertension (idiopathic) with ulcer of left lower extremity (principal); L97.222 Non-pressure chronic ulcer of left calf with fat layer exposed; T86.821 Skin graft (allograft) (autograft) failure; D69.59 Other secondary thrombocytopenia; F17.210 Nicotine dependence, cigarettes, uncomplicated; E11.622 Type 2 diabetes mellitus with other skin ulcer; Z79.84 Long term (current) use of oral hypoglycemic drugs; Z79.891 Long term (current) use of opiate analgesic | CPT/HCPCS: 11042; A6207; A6402; Z7610 ==

== ENCOUNTER 2018-11-18 10:40 | Outpatient (CLI) | END 2018-11-18 23:59 | disposition home health service (06) | DX: T86.821 Skin graft (allograft) (autograft) failure (principal); I87.312 Chronic venous hypertension (idiopathic) with ulcer of left lower extremity; L97.828 Non-pressure chronic ulcer of other part of left lower leg with other specified severity; L97.822 Non-pressure chronic ulcer of other part of left lower leg with fat layer exposed; E11.622 Type 2 diabetes mellitus with other skin ulcer; D69.59 Other secondary thrombocytopenia; F17.210 Nicotine dependence, cigarettes, uncomplicated; K74.60 Unspecified cirrhosis of liver; B19.20 Unspecified viral hepatitis C without hepatic coma; F10.20 Alcohol dependence, uncomplicated; Y90.9 Presence of alcohol in blood, level not specified; I89.0 Lymphedema, not elsewhere classified ==

== ENCOUNTER 2018-11-25 10:30 | Outpatient (CLI) | payer MEDICARE, OTHER | END 2018-11-25 23:59 | disposition home health service (06) | LOC: WOU 10:30 | PROVIDERS: ATTEND Podiatrist Foot & Ankle Surgery | DX: I87.312 Chronic venous hypertension (idiopathic) with ulcer of left lower extremity (principal); L97.822 Non-pressure chronic ulcer of other part of left lower leg with fat layer exposed; L97.821 Non-pressure chronic ulcer of other part of left lower leg limited to breakdown of skin; T86.821 Skin graft (allograft) (autograft) failure; E11.622 Type 2 diabetes mellitus with other skin ulcer; D69.59 Other secondary thrombocytopenia; I89.0 Lymphedema, not elsewhere classified; F17.210 Nicotine dependence, cigarettes, uncomplicated; F10.20 Alcohol dependence, uncomplicated; Y90.9 Presence of alcohol in blood, level not specified | CPT/HCPCS: 11042; 11045; A6207; A6402 ==

== ENCOUNTER 2018-12-02 10:40 | Outpatient (CLI) | payer MEDICARE, OTHER | END 2018-12-02 23:59 | disposition home health service (06) | LOC: WOU 10:40 | PROVIDERS: ATTEND Podiatrist Foot & Ankle Surgery | DX: I87.312 Chronic venous hypertension (idiopathic) with ulcer of left lower extremity (principal); L97.828 Non-pressure chronic ulcer of other part of left lower leg with other specified severity; L97.822 Non-pressure chronic ulcer of other part of left lower leg with fat layer exposed; I89.0 Lymphedema, not elsewhere classified; T86.821 Skin graft (allograft) (autograft) failure; F17.210 Nicotine dependence, cigarettes, uncomplicated; Z86.19 Personal history of other infectious and parasitic diseases; K74.60 Unspecified cirrhosis of liver; D69.59 Other secondary thrombocytopenia; F10.20 Alcohol dependence, uncomplicated; Y90.9 Presence of alcohol in blood, level not specified | CPT/HCPCS: 11042; A6207; Z7610 ==

== ENCOUNTER 2018-12-13 10:10 | Outpatient (CLI) | payer MEDICARE, OTHER | END 2018-12-13 23:59 | disposition home health service (06) | LOC: WOU 10:10 | PROVIDERS: ATTEND Podiatrist Foot & Ankle Surgery | DX: I87.312 Chronic venous hypertension (idiopathic) with ulcer of left lower extremity (principal); L97.822 Non-pressure chronic ulcer of other part of left lower leg with fat layer exposed; T86.821 Skin graft (allograft) (autograft) failure; I89.0 Lymphedema, not elsewhere classified; D69.59 Other secondary thrombocytopenia; F17.210 Nicotine dependence, cigarettes, uncomplicated; E11.9 Type 2 diabetes mellitus without complications; Z79.84 Long term (current) use of oral hypoglycemic drugs; F10.20 Alcohol dependence, uncomplicated | CPT/HCPCS: 11042; A6207; A6402; Z7610 ×2 ==

== ENCOUNTER → 2018-12-20 | Outpatient (CLI) | payer MEDICARE, OTHER | END | disposition home health service (06) | LOC: WOU 10:10 | PROVIDERS: ATTEND Podiatrist Foot & Ankle Surgery | DX: I87.312 Chronic venous hypertension (idiopathic) with ulcer of left lower extremity (principal); L97.822 Non-pressure chronic ulcer of other part of left lower leg with fat layer exposed; L97.828 Non-pressure chronic ulcer of other part of left lower leg with other specified severity; E11.622 Type 2 diabetes mellitus with other skin ulcer; T86.821 Skin graft (allograft) (autograft) failure; D69.59 Other secondary thrombocytopenia; F17.210 Nicotine dependence, cigarettes, uncomplicated; I89.0 Lymphedema, not elsewhere classified; I11.0 Hypertensive heart disease with heart failure; F10.20 Alcohol dependence, uncomplicated; B19.20 Unspecified viral hepatitis C without hepatic coma; Z79.84 Long term (current) use of oral hypoglycemic drugs; Z79.891 Long term (current) use of opiate analgesic | CPT/HCPCS: 11042; A6207; A6402; Z7610 ==

== ENCOUNTER 2018-12-30 10:35 | Outpatient (CLI) | payer MEDICARE, OTHER ==
[2018-12-30 12:02] LABS: CALCIUM, SERUM 8.4 mg/dL (8.5-10.1); POTASSIUM 4.9 mmol/L (3.5-5.1)
[2018-12-30 12:03] LABS: BASOPHILS % (AUTO) 0.6 % (0.0-2.0); EOSINOPHILS % (AUTO) 4.4 % (0.0-6.0); HEMATOCRIT 35 % (39-51); LYMPHOCYTES # (AUTO) 0.8 /CMM (0.8-4.8); LYMPHOCYTES % (AUTO) 24.6 % (20.0-44.0); MEAN CORPUSCULAR HGB CONC 35 g/dl (31.0-36.0); MEAN CORPUSCULAR VOLUME 103 fL (80-96); MONOCYTES # (AUTO) 0.7 /CMM (0.1-1.30); MONOCYTES % (AUTO) 21.7 % (2.0-12.0); NEUTROPHILS # (AUTO) 1.7 /CMM (1.8-8.9); NEUTROPHILS % (AUTO) 48.7 % (43.0-81.0); PLATELET COUNT (AUTO) 56 /CMM (150-450); RED BLOOD CELL COUNT(AUTO) 3.37 MIL/uL (4.5-6.0); WHITE BLOOD COUNT (AUTO) 3.4 K/uL (4.3-11.0)
[2018-12-30 12:08] LABS: PREALBUMIN 18.6 MG/DL (18.0-35.7)
[2018-12-30 12:31] LABS: EOSINOPHILS % (MANUAL) 5 % (0-4); LYMPHOCYTES % (MANUAL) 28 % (16-48); MONOCYTES % (MANUAL) 22 % (0-11.0); NEUTROPHILS % (MANUAL) 45 (42-76)
== END 2018-12-30 23:59 | disposition home health service (06) ==
LOC: WOU 10:35
PROVIDERS: ATTEND Podiatrist Foot & Ankle Surgery
DX: I87.312 Chronic venous hypertension (idiopathic) with ulcer of left lower extremity (principal); L97.822 Non-pressure chronic ulcer of other part of left lower leg with fat layer exposed; Z72.0 Tobacco use; D69.59 Other secondary thrombocytopenia; E11.622 Type 2 diabetes mellitus with other skin ulcer; Z86.19 Personal history of other infectious and parasitic diseases; K74.60 Unspecified cirrhosis of liver; Z88.2 Allergy status to sulfonamides; I89.0 Lymphedema, not elsewhere classified; I87.2 Venous insufficiency (chronic) (peripheral)
CPT/HCPCS: 11042; 36415; 80048; 80061; 83036; 84134; 85025; A6207; A6402

== ENCOUNTER 2019-01-13 09:45 | Outpatient (CLI) | payer MEDICARE, OTHER | END 2019-01-13 23:59 | disposition home health service (06) | LOC: WOU 09:45 | PROVIDERS: ATTEND Podiatrist Foot & Ankle Surgery | DX: I87.312 Chronic venous hypertension (idiopathic) with ulcer of left lower extremity (principal); L97.822 Non-pressure chronic ulcer of other part of left lower leg with fat layer exposed; I89.0 Lymphedema, not elsewhere classified; T86.821 Skin graft (allograft) (autograft) failure; E11.622 Type 2 diabetes mellitus with other skin ulcer; D69.59 Other secondary thrombocytopenia; Z72.0 Tobacco use; I87.2 Venous insufficiency (chronic) (peripheral); Z88.2 Allergy status to sulfonamides; E11.59 Type 2 diabetes mellitus with other circulatory complications; K74.60 Unspecified cirrhosis of liver; Z86.19 Personal history of other infectious and parasitic diseases; F10.20 Alcohol dependence, uncomplicated; Y90.9 Presence of alcohol in blood, level not specified | CPT/HCPCS: 11042; A6207; A6402 ==

== ENCOUNTER 2019-01-19 12:55 | Outpatient (CLI) | payer MEDICARE, OTHER | END 2019-01-19 23:59 | disposition home or self-care (01) | LOC: CARD 12:55 | PROVIDERS: ATTEND Podiatrist Foot & Ankle Surgery | DX: I82.432 Acute embolism and thrombosis of left popliteal vein (principal); I82.412 Acute embolism and thrombosis of left femoral vein; I82.812 Embolism and thrombosis of superficial veins of left lower extremity | CPT/HCPCS: 93971-TC ==

== ENCOUNTER 2019-01-20 10:15 | Outpatient (CLI) | payer MEDICARE, OTHER | END 2019-01-20 23:59 | disposition home health service (06) | LOC: WOU 10:15 | PROVIDERS: ATTEND Podiatrist Foot & Ankle Surgery | DX: I87.312 Chronic venous hypertension (idiopathic) with ulcer of left lower extremity (principal); L97.822 Non-pressure chronic ulcer of other part of left lower leg with fat layer exposed; I82.412 Acute embolism and thrombosis of left femoral vein; D69.59 Other secondary thrombocytopenia; E11.622 Type 2 diabetes mellitus with other skin ulcer; K74.60 Unspecified cirrhosis of liver; Z86.19 Personal history of other infectious and parasitic diseases; F17.210 Nicotine dependence, cigarettes, uncomplicated; Z88.2 Allergy status to sulfonamides; T86.821 Skin graft (allograft) (autograft) failure; I89.0 Lymphedema, not elsewhere classified; Z86.718 Personal history of other venous thrombosis and embolism; Z79.84 Long term (current) use of oral hypoglycemic drugs | CPT/HCPCS: 11042; A6207; A6402 ==

== ENCOUNTER 2019-01-27 11:00 | Outpatient (CLI) | payer MEDICARE, OTHER | END 2019-01-27 23:59 | disposition home health service (06) | LOC: WOU 11:00 | PROVIDERS: ATTEND Podiatrist Foot & Ankle Surgery | DX: I87.312 Chronic venous hypertension (idiopathic) with ulcer of left lower extremity (principal); L97.822 Non-pressure chronic ulcer of other part of left lower leg with fat layer exposed; F17.210 Nicotine dependence, cigarettes, uncomplicated; D69.59 Other secondary thrombocytopenia; E11.622 Type 2 diabetes mellitus with other skin ulcer; T86.821 Skin graft (allograft) (autograft) failure; K74.60 Unspecified cirrhosis of liver; Z86.19 Personal history of other infectious and parasitic diseases; F10.20 Alcohol dependence, uncomplicated; Y90.9 Presence of alcohol in blood, level not specified; M17.11 Unilateral primary osteoarthritis, right knee; Z79.84 Long term (current) use of oral hypoglycemic drugs; Z79.899 Other long term (current) drug therapy | CPT/HCPCS: 11042; A6207; A6402 ==

== ENCOUNTER 2019-02-03 10:30 | Outpatient (CLI) | payer MEDICARE, OTHER | END 2019-02-03 23:59 | disposition home health service (06) | LOC: WOU 10:30 | PROVIDERS: ATTEND Podiatrist Foot & Ankle Surgery | DX: I87.312 Chronic venous hypertension (idiopathic) with ulcer of left lower extremity (principal); L97.822 Non-pressure chronic ulcer of other part of left lower leg with fat layer exposed; D69.59 Other secondary thrombocytopenia; E11.622 Type 2 diabetes mellitus with other skin ulcer; I89.0 Lymphedema, not elsewhere classified; T86.821 Skin graft (allograft) (autograft) failure; F17.210 Nicotine dependence, cigarettes, uncomplicated; F10.14 Alcohol abuse with alcohol-induced mood disorder; Z86.19 Personal history of other infectious and parasitic diseases; Z88.2 Allergy status to sulfonamides; I10 Essential (primary) hypertension | CPT/HCPCS: 11042; A6207; A6402 ==

== ENCOUNTER 2019-02-14 10:45 | Outpatient (CLI) | payer MEDICARE, OTHER | END 2019-02-14 23:59 | disposition home health service (06) | LOC: WOU 10:45 | PROVIDERS: ATTEND Podiatrist Foot & Ankle Surgery | DX: I87.312 Chronic venous hypertension (idiopathic) with ulcer of left lower extremity (principal); L97.822 Non-pressure chronic ulcer of other part of left lower leg with fat layer exposed; E11.622 Type 2 diabetes mellitus with other skin ulcer; T86.821 Skin graft (allograft) (autograft) failure; I89.0 Lymphedema, not elsewhere classified; D69.59 Other secondary thrombocytopenia; F17.210 Nicotine dependence, cigarettes, uncomplicated; F10.14 Alcohol abuse with alcohol-induced mood disorder; Z79.84 Long term (current) use of oral hypoglycemic drugs; Z79.891 Long term (current) use of opiate analgesic | CPT/HCPCS: 11042; 82962; A6207; A6402 ==

== ENCOUNTER 2019-02-21 10:30 | Outpatient (CLI) | payer MEDICARE, OTHER | END 2019-02-21 23:59 | disposition home health service (06) | LOC: WOU 10:30 | PROVIDERS: ATTEND Podiatrist Foot & Ankle Surgery | DX: I87.312 Chronic venous hypertension (idiopathic) with ulcer of left lower extremity (principal); T86.821 Skin graft (allograft) (autograft) failure; L97.822 Non-pressure chronic ulcer of other part of left lower leg with fat layer exposed; I89.0 Lymphedema, not elsewhere classified; E11.622 Type 2 diabetes mellitus with other skin ulcer; F10.14 Alcohol abuse with alcohol-induced mood disorder; D69.59 Other secondary thrombocytopenia; F17.210 Nicotine dependence, cigarettes, uncomplicated; Z79.84 Long term (current) use of oral hypoglycemic drugs; Z79.891 Long term (current) use of opiate analgesic | CPT/HCPCS: 11042; A6207; A6402 ==

== ENCOUNTER 2019-02-28 10:30 | Outpatient (CLI) | payer MEDICARE, OTHER | END 2019-02-28 23:59 | disposition home health service (06) | LOC: WOU 10:30 | PROVIDERS: ATTEND Podiatrist Foot & Ankle Surgery | DX: I87.312 Chronic venous hypertension (idiopathic) with ulcer of left lower extremity (principal); L97.822 Non-pressure chronic ulcer of other part of left lower leg with fat layer exposed; I89.0 Lymphedema, not elsewhere classified; T86.821 Skin graft (allograft) (autograft) failure; E11.622 Type 2 diabetes mellitus with other skin ulcer; F10.14 Alcohol abuse with alcohol-induced mood disorder; D69.59 Other secondary thrombocytopenia; F17.210 Nicotine dependence, cigarettes, uncomplicated; Z79.84 Long term (current) use of oral hypoglycemic drugs; Z79.891 Long term (current) use of opiate analgesic | CPT/HCPCS: 11042; A6207; A6402 ==

== ENCOUNTER 2019-03-07 10:10 | Outpatient (CLI) | payer MEDICARE, OTHER | END 2019-03-07 23:59 | disposition home health service (06) | LOC: WOU 10:10 | PROVIDERS: ATTEND Podiatrist Foot & Ankle Surgery | DX: I87.312 Chronic venous hypertension (idiopathic) with ulcer of left lower extremity (principal); L97.822 Non-pressure chronic ulcer of other part of left lower leg with fat layer exposed; E11.622 Type 2 diabetes mellitus with other skin ulcer; I89.0 Lymphedema, not elsewhere classified; T86.821 Skin graft (allograft) (autograft) failure; F10.14 Alcohol abuse with alcohol-induced mood disorder; D69.59 Other secondary thrombocytopenia; F17.210 Nicotine dependence, cigarettes, uncomplicated; Z79.84 Long term (current) use of oral hypoglycemic drugs; Z79.891 Long term (current) use of opiate analgesic | CPT/HCPCS: 11042; A6207; A6402 ==

== ENCOUNTER 2019-03-17 09:50 | Outpatient (CLI) | payer MEDICARE, OTHER | END 2019-03-17 23:59 | disposition home health service (06) | LOC: WOU 09:50 | PROVIDERS: ATTEND Podiatrist Foot & Ankle Surgery | DX: I87.312 Chronic venous hypertension (idiopathic) with ulcer of left lower extremity (principal); L97.822 Non-pressure chronic ulcer of other part of left lower leg with fat layer exposed; E11.622 Type 2 diabetes mellitus with other skin ulcer; T86.821 Skin graft (allograft) (autograft) failure; D69.59 Other secondary thrombocytopenia; F17.210 Nicotine dependence, cigarettes, uncomplicated; F10.24 Alcohol dependence with alcohol-induced mood disorder; Y90.9 Presence of alcohol in blood, level not specified; Z79.84 Long term (current) use of oral hypoglycemic drugs; Z79.899 Other long term (current) drug therapy | CPT/HCPCS: 11042; A6207; A6402 ==

== ENCOUNTER 2019-03-24 10:35 | Outpatient (CLI) | payer MEDICARE, OTHER | END 2019-03-24 23:59 | disposition home health service (06) | LOC: WOU 10:35 | PROVIDERS: ATTEND Podiatrist Foot & Ankle Surgery | DX: I87.312 Chronic venous hypertension (idiopathic) with ulcer of left lower extremity (principal); L97.822 Non-pressure chronic ulcer of other part of left lower leg with fat layer exposed; F17.210 Nicotine dependence, cigarettes, uncomplicated; F10.24 Alcohol dependence with alcohol-induced mood disorder; K70.30 Alcoholic cirrhosis of liver without ascites; Y90.9 Presence of alcohol in blood, level not specified; D69.59 Other secondary thrombocytopenia; B94.2 Sequelae of viral hepatitis; E11.622 Type 2 diabetes mellitus with other skin ulcer; E89.0 Postprocedural hypothyroidism; Z79.84 Long term (current) use of oral hypoglycemic drugs; Z79.899 Other long term (current) drug therapy | CPT/HCPCS: 11042; A6207; A6402 ==

== ENCOUNTER 2019-03-31 10:35 | Outpatient (CLI) | payer MEDICARE, OTHER | END 2019-03-31 23:59 | disposition home health service (06) | LOC: WOU 10:35 | PROVIDERS: ATTEND Podiatrist Foot & Ankle Surgery | DX: I87.312 Chronic venous hypertension (idiopathic) with ulcer of left lower extremity (principal); L97.822 Non-pressure chronic ulcer of other part of left lower leg with fat layer exposed; E11.622 Type 2 diabetes mellitus with other skin ulcer; F17.210 Nicotine dependence, cigarettes, uncomplicated; D69.59 Other secondary thrombocytopenia; T86.821 Skin graft (allograft) (autograft) failure; Z86.19 Personal history of other infectious and parasitic diseases; I89.0 Lymphedema, not elsewhere classified; F10.14 Alcohol abuse with alcohol-induced mood disorder; F41.0 Panic disorder [episodic paroxysmal anxiety] | CPT/HCPCS: 11042; A6207; A6402 ==

== ENCOUNTER 2019-05-09 10:30 | Outpatient (CLI) | payer MEDICARE, OTHER | END 2019-05-09 23:59 | disposition home health service (06) | LOC: WOU 10:30 | PROVIDERS: ATTEND Podiatrist Foot & Ankle Surgery | DX: I87.312 Chronic venous hypertension (idiopathic) with ulcer of left lower extremity (principal); L97.822 Non-pressure chronic ulcer of other part of left lower leg with fat layer exposed; E11.622 Type 2 diabetes mellitus with other skin ulcer; T86.821 Skin graft (allograft) (autograft) failure; F10.14 Alcohol abuse with alcohol-induced mood disorder; D69.59 Other secondary thrombocytopenia; F17.210 Nicotine dependence, cigarettes, uncomplicated; K74.60 Unspecified cirrhosis of liver; Z79.84 Long term (current) use of oral hypoglycemic drugs; Z79.891 Long term (current) use of opiate analgesic | CPT/HCPCS: 11042; A6207; A6402 ==

== ENCOUNTER 2019-05-16 11:14 | Outpatient (CLI) | payer MEDICARE, OTHER | END 2019-05-16 23:59 | disposition home health service (06) | LOC: WOU 11:14 | PROVIDERS: ATTEND Podiatrist Foot & Ankle Surgery | DX: I87.312 Chronic venous hypertension (idiopathic) with ulcer of left lower extremity (principal); L97.822 Non-pressure chronic ulcer of other part of left lower leg with fat layer exposed; I89.0 Lymphedema, not elsewhere classified; T86.821 Skin graft (allograft) (autograft) failure; E11.622 Type 2 diabetes mellitus with other skin ulcer; F10.14 Alcohol abuse with alcohol-induced mood disorder; D69.59 Other secondary thrombocytopenia; F17.210 Nicotine dependence, cigarettes, uncomplicated; Z79.84 Long term (current) use of oral hypoglycemic drugs; K74.60 Unspecified cirrhosis of liver | CPT/HCPCS: 11042; A6207; A6402 ==

== ENCOUNTER 2019-05-23 10:07 | Outpatient (CLI) | payer MEDICARE, OTHER | END 2019-05-23 23:59 | disposition home or self-care (01) | LOC: US 10:07 | PROVIDERS: ATTEND Internal Medicine Hematology & Oncology | DX: K74.60 Unspecified cirrhosis of liver (principal); R16.1 Splenomegaly, not elsewhere classified; E80.7 Disorder of bilirubin metabolism, unspecified; I10 Essential (primary) hypertension; E11.9 Type 2 diabetes mellitus without complications | CPT/HCPCS: 76700-TC ==

== ENCOUNTER 2019-05-23 10:45 | Outpatient (CLI) | payer MEDICARE, OTHER | END 2019-05-23 23:59 | disposition home health service (06) | LOC: WOU 10:45 | PROVIDERS: ATTEND Podiatrist Foot & Ankle Surgery | DX: I87.312 Chronic venous hypertension (idiopathic) with ulcer of left lower extremity (principal); L97.822 Non-pressure chronic ulcer of other part of left lower leg with fat layer exposed; E11.622 Type 2 diabetes mellitus with other skin ulcer; T86.821 Skin graft (allograft) (autograft) failure; F10.14 Alcohol abuse with alcohol-induced mood disorder; D69.59 Other secondary thrombocytopenia; F17.210 Nicotine dependence, cigarettes, uncomplicated; I10 Essential (primary) hypertension; B19.20 Unspecified viral hepatitis C without hepatic coma; K74.60 Unspecified cirrhosis of liver | CPT/HCPCS: 11042; A6207; A6402 ==

== ENCOUNTER 2019-05-30 09:35 | Outpatient (CLI) | payer MEDICARE, OTHER | END 2019-05-30 23:59 | disposition home health service (06) | LOC: WOU 09:35 | PROVIDERS: ATTEND Podiatrist Foot & Ankle Surgery | DX: I87.312 Chronic venous hypertension (idiopathic) with ulcer of left lower extremity (principal); L97.822 Non-pressure chronic ulcer of other part of left lower leg with fat layer exposed; E11.622 Type 2 diabetes mellitus with other skin ulcer; T86.821 Skin graft (allograft) (autograft) failure; I89.0 Lymphedema, not elsewhere classified; F10.14 Alcohol abuse with alcohol-induced mood disorder; D69.59 Other secondary thrombocytopenia; F17.210 Nicotine dependence, cigarettes, uncomplicated; Z79.84 Long term (current) use of oral hypoglycemic drugs | CPT/HCPCS: 11042; A6207; A6402 ==

== ENCOUNTER 2019-06-06 10:30 | Outpatient (CLI) | payer MEDICARE, OTHER | END 2019-06-06 23:59 | disposition home health service (06) | LOC: WOU 10:30 | PROVIDERS: ATTEND Podiatrist Foot & Ankle Surgery | DX: I87.312 Chronic venous hypertension (idiopathic) with ulcer of left lower extremity (principal); L97.822 Non-pressure chronic ulcer of other part of left lower leg with fat layer exposed; I89.0 Lymphedema, not elsewhere classified; E11.622 Type 2 diabetes mellitus with other skin ulcer; T86.821 Skin graft (allograft) (autograft) failure; F10.14 Alcohol abuse with alcohol-induced mood disorder; D69.59 Other secondary thrombocytopenia; F17.210 Nicotine dependence, cigarettes, uncomplicated; Z79.84 Long term (current) use of oral hypoglycemic drugs | CPT/HCPCS: 15271; A6207; A6402; Q4195 ==

== ENCOUNTER 2019-06-13 09:55 | Outpatient (CLI) | payer MEDICARE, OTHER | END 2019-06-13 23:59 | disposition home health service (06) | LOC: WOU 09:55 | PROVIDERS: ATTEND Podiatrist Foot & Ankle Surgery | DX: I87.312 Chronic venous hypertension (idiopathic) with ulcer of left lower extremity (principal); L97.822 Non-pressure chronic ulcer of other part of left lower leg with fat layer exposed; I89.0 Lymphedema, not elsewhere classified; T86.821 Skin graft (allograft) (autograft) failure; E11.622 Type 2 diabetes mellitus with other skin ulcer; F10.14 Alcohol abuse with alcohol-induced mood disorder; D69.59 Other secondary thrombocytopenia; F17.210 Nicotine dependence, cigarettes, uncomplicated; K74.60 Unspecified cirrhosis of liver; I10 Essential (primary) hypertension; Z79.84 Long term (current) use of oral hypoglycemic drugs | CPT/HCPCS: 15271; A6207; Q4196 ==

== ENCOUNTER 2019-06-20 09:55 | Outpatient (CLI) | payer MEDICARE, OTHER | END 2019-06-20 23:59 | disposition home health service (06) | LOC: WOU 09:55 | PROVIDERS: ATTEND Podiatrist Foot & Ankle Surgery | DX: I87.312 Chronic venous hypertension (idiopathic) with ulcer of left lower extremity (principal); L97.822 Non-pressure chronic ulcer of other part of left lower leg with fat layer exposed; I89.0 Lymphedema, not elsewhere classified; T86.821 Skin graft (allograft) (autograft) failure; E11.622 Type 2 diabetes mellitus with other skin ulcer; F10.14 Alcohol abuse with alcohol-induced mood disorder; D69.59 Other secondary thrombocytopenia; F17.210 Nicotine dependence, cigarettes, uncomplicated; Z79.84 Long term (current) use of oral hypoglycemic drugs | CPT/HCPCS: 15271; A6207; Q4196 ==

== ENCOUNTER 2019-06-27 10:02 | Outpatient (CLI) | payer MEDICARE, OTHER | END 2019-06-27 23:59 | disposition home health service (06) | LOC: WOU 10:02 | PROVIDERS: ATTEND Podiatrist Foot & Ankle Surgery | DX: I87.312 Chronic venous hypertension (idiopathic) with ulcer of left lower extremity (principal); L97.822 Non-pressure chronic ulcer of other part of left lower leg with fat layer exposed; E11.622 Type 2 diabetes mellitus with other skin ulcer; Z79.84 Long term (current) use of oral hypoglycemic drugs; I89.0 Lymphedema, not elsewhere classified; T86.821 Skin graft (allograft) (autograft) failure; I87.2 Venous insufficiency (chronic) (peripheral); D69.59 Other secondary thrombocytopenia; F17.210 Nicotine dependence, cigarettes, uncomplicated; F10.14 Alcohol abuse with alcohol-induced mood disorder | CPT/HCPCS: 15271; A6207; Q4196 ==

== ENCOUNTER 2019-07-11 10:10 | Outpatient (CLI) | payer MEDICARE, OTHER | END 2019-07-11 23:59 | disposition home health service (06) | LOC: WOU 10:10 | PROVIDERS: ATTEND Podiatrist Foot & Ankle Surgery | DX: I87.312 Chronic venous hypertension (idiopathic) with ulcer of left lower extremity (principal); L97.822 Non-pressure chronic ulcer of other part of left lower leg with fat layer exposed; Z86.19 Personal history of other infectious and parasitic diseases; I10 Essential (primary) hypertension; D69.59 Other secondary thrombocytopenia; F17.210 Nicotine dependence, cigarettes, uncomplicated; F10.20 Alcohol dependence, uncomplicated; Y90.9 Presence of alcohol in blood, level not specified; Z88.2 Allergy status to sulfonamides | CPT/HCPCS: 15271; 86821; A6207; Q4196 ==

== ENCOUNTER 2019-07-18 10:05 | Outpatient (CLI) | payer MEDICARE, OTHER | END 2019-07-18 23:59 | disposition home health service (06) | LOC: WOU 10:05 | PROVIDERS: ATTEND Podiatrist Foot & Ankle Surgery | DX: I87.312 Chronic venous hypertension (idiopathic) with ulcer of left lower extremity (principal); L97.822 Non-pressure chronic ulcer of other part of left lower leg with fat layer exposed; I87.2 Venous insufficiency (chronic) (peripheral); I89.0 Lymphedema, not elsewhere classified; E11.622 Type 2 diabetes mellitus with other skin ulcer; Z79.84 Long term (current) use of oral hypoglycemic drugs; F10.14 Alcohol abuse with alcohol-induced mood disorder; D69.59 Other secondary thrombocytopenia; F17.210 Nicotine dependence, cigarettes, uncomplicated | CPT/HCPCS: 15271; A6207; Q4196 ==

== ENCOUNTER 2019-07-28 10:30 | Outpatient (CLI) | payer MEDICARE, OTHER | END 2019-07-28 23:59 | disposition home health service (06) | LOC: WOU 10:30 | PROVIDERS: ATTEND Podiatrist Foot & Ankle Surgery | DX: I87.312 Chronic venous hypertension (idiopathic) with ulcer of left lower extremity (principal); L97.822 Non-pressure chronic ulcer of other part of left lower leg with fat layer exposed; D69.59 Other secondary thrombocytopenia; Z72.0 Tobacco use; F10.14 Alcohol abuse with alcohol-induced mood disorder; Y90.9 Presence of alcohol in blood, level not specified; E11.622 Type 2 diabetes mellitus with other skin ulcer; I89.0 Lymphedema, not elsewhere classified; T86.821 Skin graft (allograft) (autograft) failure; K74.60 Unspecified cirrhosis of liver; Z86.19 Personal history of other infectious and parasitic diseases; I10 Essential (primary) hypertension | CPT/HCPCS: 11042; A6207 ==

== ENCOUNTER 2019-08-08 10:39 | Outpatient (CLI) | payer MEDICARE, OTHER | END 2019-08-08 23:59 | disposition home health service (06) | LOC: WOU 10:39 | PROVIDERS: ATTEND Podiatrist Foot & Ankle Surgery | DX: I87.312 Chronic venous hypertension (idiopathic) with ulcer of left lower extremity (principal); L97.822 Non-pressure chronic ulcer of other part of left lower leg with fat layer exposed; I89.0 Lymphedema, not elsewhere classified; F10.14 Alcohol abuse with alcohol-induced mood disorder; I87.2 Venous insufficiency (chronic) (peripheral); F17.210 Nicotine dependence, cigarettes, uncomplicated; Z79.84 Long term (current) use of oral hypoglycemic drugs | CPT/HCPCS: 11042; A6207 ==

== ENCOUNTER 2019-08-15 10:35 | Outpatient (CLI) | payer MEDICARE, OTHER | END 2019-08-15 23:59 | disposition home health service (06) | LOC: WOU 10:35 | PROVIDERS: ATTEND Podiatrist Foot & Ankle Surgery | DX: I87.312 Chronic venous hypertension (idiopathic) with ulcer of left lower extremity (principal); L97.822 Non-pressure chronic ulcer of other part of left lower leg with fat layer exposed; E11.622 Type 2 diabetes mellitus with other skin ulcer; Z79.84 Long term (current) use of oral hypoglycemic drugs; I87.2 Venous insufficiency (chronic) (peripheral); I89.0 Lymphedema, not elsewhere classified; F10.14 Alcohol abuse with alcohol-induced mood disorder; D69.59 Other secondary thrombocytopenia; I10 Essential (primary) hypertension; F17.210 Nicotine dependence, cigarettes, uncomplicated | CPT/HCPCS: 15271; 82962; A6207; Q4196 ==

== ENCOUNTER 2019-08-22 10:25 | Outpatient (CLI) | payer MEDICARE, OTHER | END 2019-08-22 23:59 | disposition home or self-care (01) | LOC: WOU 10:25 | PROVIDERS: ATTEND Podiatrist Foot & Ankle Surgery | DX: I87.312 Chronic venous hypertension (idiopathic) with ulcer of left lower extremity (principal); L97.822 Non-pressure chronic ulcer of other part of left lower leg with fat layer exposed; I89.0 Lymphedema, not elsewhere classified; E11.622 Type 2 diabetes mellitus with other skin ulcer; Z79.84 Long term (current) use of oral hypoglycemic drugs; F10.14 Alcohol abuse with alcohol-induced mood disorder; I87.2 Venous insufficiency (chronic) (peripheral); D69.59 Other secondary thrombocytopenia; F17.210 Nicotine dependence, cigarettes, uncomplicated | CPT/HCPCS: 11042; A6207 ==

== ENCOUNTER 2019-08-29 10:35 | Outpatient (CLI) | payer MEDICARE, OTHER | END 2019-08-29 23:59 | disposition home health service (06) | LOC: WOU 10:35 | PROVIDERS: ATTEND Podiatrist Foot & Ankle Surgery | DX: I87.312 Chronic venous hypertension (idiopathic) with ulcer of left lower extremity (principal); L97.822 Non-pressure chronic ulcer of other part of left lower leg with fat layer exposed; E11.9 Type 2 diabetes mellitus without complications; Z79.84 Long term (current) use of oral hypoglycemic drugs; I89.0 Lymphedema, not elsewhere classified; F10.14 Alcohol abuse with alcohol-induced mood disorder; I87.2 Venous insufficiency (chronic) (peripheral); D69.59 Other secondary thrombocytopenia; F17.210 Nicotine dependence, cigarettes, uncomplicated; I10 Essential (primary) hypertension | CPT/HCPCS: 15271; A6207; Q4196 ==

== ENCOUNTER 2019-09-05 10:35 | Outpatient (CLI) | payer MEDICARE, OTHER | END 2019-09-05 23:59 | disposition home health service (06) | LOC: WOU 10:35 | PROVIDERS: ATTEND Podiatrist Foot & Ankle Surgery | DX: I87.312 Chronic venous hypertension (idiopathic) with ulcer of left lower extremity (principal); L97.822 Non-pressure chronic ulcer of other part of left lower leg with fat layer exposed; I89.0 Lymphedema, not elsewhere classified; E11.622 Type 2 diabetes mellitus with other skin ulcer; I87.2 Venous insufficiency (chronic) (peripheral); D69.59 Other secondary thrombocytopenia; F17.210 Nicotine dependence, cigarettes, uncomplicated; F10.14 Alcohol abuse with alcohol-induced mood disorder; Z79.84 Long term (current) use of oral hypoglycemic drugs | CPT/HCPCS: 11042; A6207; A6209 ==

== ENCOUNTER 2019-09-12 09:50 | Outpatient (CLI) | payer MEDICARE, OTHER ==
[2019-09-13] MEDS ORDERED: MORPHINE SULFATE INJ 4 MG/ML DISP.SYRIN ONE (03:59)
[2019-09-13] MEDS ORDERED: ONDANSETRON HCL/PF 4 MG/2 ML VIAL ONE (03:59)
[2019-09-13] MEDS ORDERED: TDAP [DIPH/PERTUSSIS/TET] 0.5 ML VIAL IM ONE (04:01)
== END 2019-09-12 23:59 | disposition home health service (06) ==
LOC: WOU 09:50
PROVIDERS: ATTEND Podiatrist Foot & Ankle Surgery
DX: I87.312 Chronic venous hypertension (idiopathic) with ulcer of left lower extremity (principal); L97.822 Non-pressure chronic ulcer of other part of left lower leg with fat layer exposed; I89.0 Lymphedema, not elsewhere classified; E11.9 Type 2 diabetes mellitus without complications; Z79.84 Long term (current) use of oral hypoglycemic drugs; I87.2 Venous insufficiency (chronic) (peripheral); D69.59 Other secondary thrombocytopenia; F17.210 Nicotine dependence, cigarettes, uncomplicated; F10.14 Alcohol abuse with alcohol-induced mood disorder; B19.20 Unspecified viral hepatitis C without hepatic coma
CPT/HCPCS: 11042; A6207; 90715; J2270; J2405

== ENCOUNTER 2019-09-19 10:15 | Outpatient (CLI) | payer MEDICARE, OTHER | END 2019-09-19 23:59 | disposition home health service (06) | LOC: WOU 10:15 | PROVIDERS: ATTEND Podiatrist Foot & Ankle Surgery | DX: I87.312 Chronic venous hypertension (idiopathic) with ulcer of left lower extremity (principal); L97.822 Non-pressure chronic ulcer of other part of left lower leg with fat layer exposed; I89.0 Lymphedema, not elsewhere classified; E11.9 Type 2 diabetes mellitus without complications; Z79.84 Long term (current) use of oral hypoglycemic drugs; I87.2 Venous insufficiency (chronic) (peripheral); D69.59 Other secondary thrombocytopenia; B19.20 Unspecified viral hepatitis C without hepatic coma; F10.14 Alcohol abuse with alcohol-induced mood disorder; F17.210 Nicotine dependence, cigarettes, uncomplicated | CPT/HCPCS: 11042; A6207 ==

== ENCOUNTER 2019-09-26 10:30 | Outpatient (CLI) | payer MEDICARE, OTHER | END 2019-09-26 23:59 | disposition home health service (06) | LOC: WOU 10:30 | PROVIDERS: ATTEND Podiatrist Foot & Ankle Surgery | DX: I87.312 Chronic venous hypertension (idiopathic) with ulcer of left lower extremity (principal); L97.822 Non-pressure chronic ulcer of other part of left lower leg with fat layer exposed; E11.9 Type 2 diabetes mellitus without complications; Z79.84 Long term (current) use of oral hypoglycemic drugs; I87.2 Venous insufficiency (chronic) (peripheral); F10.14 Alcohol abuse with alcohol-induced mood disorder; D69.59 Other secondary thrombocytopenia; F17.210 Nicotine dependence, cigarettes, uncomplicated | CPT/HCPCS: 11042; A6207 ==

== ENCOUNTER 2019-10-05 12:05 | Outpatient (CLI) | payer MEDICARE, OTHER | END 2019-10-05 23:59 | disposition home health service (06) | LOC: WOU 12:05 | PROVIDERS: ATTEND Podiatrist Foot & Ankle Surgery | DX: I87.312 Chronic venous hypertension (idiopathic) with ulcer of left lower extremity (principal); L97.829 Non-pressure chronic ulcer of other part of left lower leg with unspecified severity; T86.821 Skin graft (allograft) (autograft) failure; I89.0 Lymphedema, not elsewhere classified; E11.622 Type 2 diabetes mellitus with other skin ulcer; F10.14 Alcohol abuse with alcohol-induced mood disorder; D69.59 Other secondary thrombocytopenia; F17.210 Nicotine dependence, cigarettes, uncomplicated; K74.60 Unspecified cirrhosis of liver; Z86.19 Personal history of other infectious and parasitic diseases; Z86.718 Personal history of other venous thrombosis and embolism; Y90.9 Presence of alcohol in blood, level not specified; Z79.84 Long term (current) use of oral hypoglycemic drugs; Z79.899 Other long term (current) drug therapy | CPT/HCPCS: 11042; A6207 ==

== ENCOUNTER 2019-10-10 10:35 | Outpatient (CLI) | payer MEDICARE, OTHER | END 2019-10-10 23:59 | disposition home health service (06) | LOC: WOU 10:35 | PROVIDERS: ATTEND Podiatrist Foot & Ankle Surgery | DX: I87.312 Chronic venous hypertension (idiopathic) with ulcer of left lower extremity (principal); L97.825 Non-pressure chronic ulcer of other part of left lower leg with muscle involvement without evidence of necrosis; I89.0 Lymphedema, not elsewhere classified; E11.9 Type 2 diabetes mellitus without complications; Z79.84 Long term (current) use of oral hypoglycemic drugs; F10.14 Alcohol abuse with alcohol-induced mood disorder; I87.2 Venous insufficiency (chronic) (peripheral); D69.59 Other secondary thrombocytopenia; F17.210 Nicotine dependence, cigarettes, uncomplicated | CPT/HCPCS: 11043; A6207 ==

== ENCOUNTER 2019-10-17 10:00 | Outpatient (CLI) | payer MEDICARE, OTHER | END 2019-10-17 23:59 | disposition home health service (06) | LOC: WOU 10:00 | PROVIDERS: ATTEND Podiatrist Foot & Ankle Surgery | DX: I87.312 Chronic venous hypertension (idiopathic) with ulcer of left lower extremity (principal); L97.822 Non-pressure chronic ulcer of other part of left lower leg with fat layer exposed; I89.0 Lymphedema, not elsewhere classified; E11.9 Type 2 diabetes mellitus without complications; Z79.84 Long term (current) use of oral hypoglycemic drugs; I87.2 Venous insufficiency (chronic) (peripheral); F10.14 Alcohol abuse with alcohol-induced mood disorder; D69.59 Other secondary thrombocytopenia; F17.210 Nicotine dependence, cigarettes, uncomplicated; I10 Essential (primary) hypertension | CPT/HCPCS: 11042; A6207 ==

== ENCOUNTER 2019-10-24 10:40 | Outpatient (CLI) | payer MEDICARE, OTHER | END 2019-10-24 23:59 | disposition home health service (06) | LOC: WOU 10:40 | PROVIDERS: ATTEND Podiatrist Foot & Ankle Surgery | DX: I87.312 Chronic venous hypertension (idiopathic) with ulcer of left lower extremity (principal); L97.822 Non-pressure chronic ulcer of other part of left lower leg with fat layer exposed; I89.0 Lymphedema, not elsewhere classified; I87.2 Venous insufficiency (chronic) (peripheral); D69.59 Other secondary thrombocytopenia; F10.14 Alcohol abuse with alcohol-induced mood disorder; E11.9 Type 2 diabetes mellitus without complications; Z79.84 Long term (current) use of oral hypoglycemic drugs; F17.210 Nicotine dependence, cigarettes, uncomplicated | CPT/HCPCS: 11042; A6207 ==

== ENCOUNTER 2019-10-31 10:30 | Outpatient (CLI) | payer MEDICARE, OTHER | END 2019-10-31 23:59 | disposition home health service (06) | LOC: WOU 10:30 | PROVIDERS: ATTEND Podiatrist Foot & Ankle Surgery | DX: I87.312 Chronic venous hypertension (idiopathic) with ulcer of left lower extremity (principal); L97.825 Non-pressure chronic ulcer of other part of left lower leg with muscle involvement without evidence of necrosis; I89.0 Lymphedema, not elsewhere classified; I87.2 Venous insufficiency (chronic) (peripheral); E11.9 Type 2 diabetes mellitus without complications; Z79.84 Long term (current) use of oral hypoglycemic drugs; F10.14 Alcohol abuse with alcohol-induced mood disorder; D69.59 Other secondary thrombocytopenia; F17.210 Nicotine dependence, cigarettes, uncomplicated | CPT/HCPCS: 11043; A6207 ==

== ENCOUNTER 2019-11-07 10:05 | Outpatient (CLI) | payer MEDICARE, OTHER | END 2019-11-07 23:59 | disposition home health service (06) | LOC: WOU 10:05 | PROVIDERS: ATTEND Podiatrist Foot & Ankle Surgery | DX: I87.312 Chronic venous hypertension (idiopathic) with ulcer of left lower extremity (principal); L97.825 Non-pressure chronic ulcer of other part of left lower leg with muscle involvement without evidence of necrosis; I89.0 Lymphedema, not elsewhere classified; T86.821 Skin graft (allograft) (autograft) failure; F10.14 Alcohol abuse with alcohol-induced mood disorder; I87.2 Venous insufficiency (chronic) (peripheral); D69.59 Other secondary thrombocytopenia; E11.9 Type 2 diabetes mellitus without complications; Z79.84 Long term (current) use of oral hypoglycemic drugs; F17.210 Nicotine dependence, cigarettes, uncomplicated | CPT/HCPCS: 11042; A6207 ==

== ENCOUNTER 2019-11-14 12:00 | Outpatient (CLI) | payer MEDICARE, OTHER | END 2019-11-14 23:59 | disposition home health service (06) | LOC: WOU 12:00 | PROVIDERS: ATTEND Podiatrist Foot & Ankle Surgery | DX: I87.312 Chronic venous hypertension (idiopathic) with ulcer of left lower extremity (principal); L97.825 Non-pressure chronic ulcer of other part of left lower leg with muscle involvement without evidence of necrosis; I89.0 Lymphedema, not elsewhere classified; I87.2 Venous insufficiency (chronic) (peripheral); E11.9 Type 2 diabetes mellitus without complications; Z79.84 Long term (current) use of oral hypoglycemic drugs; F10.14 Alcohol abuse with alcohol-induced mood disorder; D69.59 Other secondary thrombocytopenia; F17.210 Nicotine dependence, cigarettes, uncomplicated | CPT/HCPCS: 11042; A6207 ==

== ENCOUNTER 2019-11-21 11:00 | Outpatient (CLI) | payer MEDICARE, OTHER | END 2019-11-21 23:59 | disposition home health service (06) | LOC: WOU 11:00 | PROVIDERS: ATTEND Podiatrist Foot & Ankle Surgery | DX: I87.312 Chronic venous hypertension (idiopathic) with ulcer of left lower extremity (principal); L97.825 Non-pressure chronic ulcer of other part of left lower leg with muscle involvement without evidence of necrosis; I89.0 Lymphedema, not elsewhere classified; E11.9 Type 2 diabetes mellitus without complications; Z79.84 Long term (current) use of oral hypoglycemic drugs; F10.14 Alcohol abuse with alcohol-induced mood disorder; I87.2 Venous insufficiency (chronic) (peripheral); D69.59 Other secondary thrombocytopenia; F17.210 Nicotine dependence, cigarettes, uncomplicated | CPT/HCPCS: 11042; A6207 ==

== ENCOUNTER 2019-11-28 10:15 | Outpatient (CLI) | payer MEDICARE, OTHER | END 2019-11-28 23:59 | disposition home health service (06) | LOC: WOU 10:15 | PROVIDERS: ATTEND Podiatrist Foot & Ankle Surgery | DX: I87.312 Chronic venous hypertension (idiopathic) with ulcer of left lower extremity (principal); L97.822 Non-pressure chronic ulcer of other part of left lower leg with fat layer exposed; I89.0 Lymphedema, not elsewhere classified; E11.9 Type 2 diabetes mellitus without complications; Z79.84 Long term (current) use of oral hypoglycemic drugs; I87.2 Venous insufficiency (chronic) (peripheral); D69.59 Other secondary thrombocytopenia; F17.210 Nicotine dependence, cigarettes, uncomplicated; F10.14 Alcohol abuse with alcohol-induced mood disorder | CPT/HCPCS: 11042; A6207 ==

== ENCOUNTER 2020-01-12 10:25 | Outpatient (CLI) | payer MEDICARE, OTHER | END 2020-01-12 23:55 | disposition home health service (06) | LOC: WOU 10:25 | PROVIDERS: ATTEND Podiatrist Foot & Ankle Surgery | DX: I87.312 Chronic venous hypertension (idiopathic) with ulcer of left lower extremity (principal); L97.822 Non-pressure chronic ulcer of other part of left lower leg with fat layer exposed; I89.0 Lymphedema, not elsewhere classified; T86.821 Skin graft (allograft) (autograft) failure; E11.622 Type 2 diabetes mellitus with other skin ulcer; D69.59 Other secondary thrombocytopenia; F10.20 Alcohol dependence, uncomplicated; Y90.9 Presence of alcohol in blood, level not specified; K74.60 Unspecified cirrhosis of liver; Z86.19 Personal history of other infectious and parasitic diseases; Z88.2 Allergy status to sulfonamides; F10.24 Alcohol dependence with alcohol-induced mood disorder; F17.210 Nicotine dependence, cigarettes, uncomplicated | CPT/HCPCS: 11042; 11045; A6207 ==

== ENCOUNTER 2020-01-19 09:45 | Outpatient (CLI) | payer MEDICARE, OTHER ==
[~2020-01-19 09:45] MED LIST changes: +ASCO-352 PO; -ASCO500T9 PO
== END 2020-01-19 23:59 | disposition home health service (06) ==
LOC: WOU 09:45
PROVIDERS: ATTEND Podiatrist Foot & Ankle Surgery
DX: I87.312 Chronic venous hypertension (idiopathic) with ulcer of left lower extremity (principal); L97.822 Non-pressure chronic ulcer of other part of left lower leg with fat layer exposed; I89.0 Lymphedema, not elsewhere classified; T86.821 Skin graft (allograft) (autograft) failure; E11.622 Type 2 diabetes mellitus with other skin ulcer; D69.59 Other secondary thrombocytopenia; F17.210 Nicotine dependence, cigarettes, uncomplicated; F10.20 Alcohol dependence, uncomplicated; Y90.9 Presence of alcohol in blood, level not specified; Z86.19 Personal history of other infectious and parasitic diseases; Z79.84 Long term (current) use of oral hypoglycemic drugs
CPT/HCPCS: 11042; A6207

== ENCOUNTER 2020-01-30 10:40 | Outpatient (CLI) | payer MEDICARE, OTHER ==
[~2020-01-30 10:40] MED LIST changes: -ASCO-352 PO; +ASCO500T9 PO; +FAMOTIDINE/PF INJ 20 MG/2 ML VIAL IV ONE
== END 2020-01-30 23:59 | disposition home health service (06) ==
LOC: WOU 10:40
PROVIDERS: ATTEND Podiatrist Foot & Ankle Surgery
DX: I87.312 Chronic venous hypertension (idiopathic) with ulcer of left lower extremity (principal); L97.822 Non-pressure chronic ulcer of other part of left lower leg with fat layer exposed; I89.0 Lymphedema, not elsewhere classified; I87.2 Venous insufficiency (chronic) (peripheral); E11.9 Type 2 diabetes mellitus without complications; Z79.84 Long term (current) use of oral hypoglycemic drugs; F10.14 Alcohol abuse with alcohol-induced mood disorder; D69.59 Other secondary thrombocytopenia; F17.210 Nicotine dependence, cigarettes, uncomplicated; T86.821 Skin graft (allograft) (autograft) failure
CPT/HCPCS: 11042; A6207; J3490

== ENCOUNTER 2020-02-09 10:30 | Outpatient (CLI) | payer MEDICARE, OTHER ==
[~2020-02-09 10:30] MED LIST changes: -FAMOTIDINE/PF INJ 20 MG/2 ML VIAL IV ONE
== END 2020-02-09 23:59 | disposition home health service (06) ==
LOC: WOU 10:30
PROVIDERS: ATTEND Podiatrist Foot & Ankle Surgery
DX: I87.312 Chronic venous hypertension (idiopathic) with ulcer of left lower extremity (principal); L97.822 Non-pressure chronic ulcer of other part of left lower leg with fat layer exposed; E11.621 Type 2 diabetes mellitus with foot ulcer; L97.522 Non-pressure chronic ulcer of other part of left foot with fat layer exposed; S90.422A Blister (nonthermal), left great toe, initial encounter; X58.XXXA Exposure to other specified factors, initial encounter; Y92.89 Other specified places as the place of occurrence of the external cause; I89.0 Lymphedema, not elsewhere classified; T86.821 Skin graft (allograft) (autograft) failure; K74.60 Unspecified cirrhosis of liver; F10.14 Alcohol abuse with alcohol-induced mood disorder; D69.59 Other secondary thrombocytopenia; F17.210 Nicotine dependence, cigarettes, uncomplicated; Z86.19 Personal history of other infectious and parasitic diseases; Z88.2 Allergy status to sulfonamides; Z79.84 Long term (current) use of oral hypoglycemic drugs; Z79.899 Other long term (current) drug therapy
CPT/HCPCS: 11042; A6207

== ENCOUNTER 2020-02-16 10:45 | Outpatient (CLI) | payer MEDICARE, OTHER | END 2020-02-16 23:59 | disposition home or self-care (01) | LOC: WOU 10:45 | PROVIDERS: ATTEND Podiatrist Foot & Ankle Surgery | DX: I87.312 Chronic venous hypertension (idiopathic) with ulcer of left lower extremity (principal); L97.822 Non-pressure chronic ulcer of other part of left lower leg with fat layer exposed; I89.0 Lymphedema, not elsewhere classified; I87.2 Venous insufficiency (chronic) (peripheral); E11.9 Type 2 diabetes mellitus without complications; Z79.84 Long term (current) use of oral hypoglycemic drugs; F10.14 Alcohol abuse with alcohol-induced mood disorder; D69.59 Other secondary thrombocytopenia; F17.210 Nicotine dependence, cigarettes, uncomplicated; T86.821 Skin graft (allograft) (autograft) failure | CPT/HCPCS: 11042; A6197; A6207 ==

== ENCOUNTER 2020-02-23 10:45 | Outpatient (CLI) | payer MEDICARE, OTHER ==
[~2020-02-23 10:45] MED LIST changes: +ASCO-352 PO; -ASCO500T9 PO
== END 2020-02-23 23:59 | disposition home or self-care (01) ==
LOC: WOU 10:45
PROVIDERS: ATTEND Podiatrist Foot & Ankle Surgery
DX: I87.312 Chronic venous hypertension (idiopathic) with ulcer of left lower extremity (principal); L97.822 Non-pressure chronic ulcer of other part of left lower leg with fat layer exposed; I89.0 Lymphedema, not elsewhere classified; E11.9 Type 2 diabetes mellitus without complications; Z79.84 Long term (current) use of oral hypoglycemic drugs; I87.2 Venous insufficiency (chronic) (peripheral); T86.821 Skin graft (allograft) (autograft) failure; F10.14 Alcohol abuse with alcohol-induced mood disorder; D69.59 Other secondary thrombocytopenia; F17.210 Nicotine dependence, cigarettes, uncomplicated
CPT/HCPCS: 11042; A6207; A6210

== ENCOUNTER 2020-03-01 11:00 | Outpatient (CLI) | payer MEDICARE, OTHER ==
[~2020-03-01 11:00] MED LIST changes: -ASCO-352 PO; +ASCO500T9 PO
== END 2020-03-01 23:59 | disposition home health service (06) ==
LOC: WOU 11:00
PROVIDERS: ATTEND Podiatrist Foot & Ankle Surgery
DX: I87.312 Chronic venous hypertension (idiopathic) with ulcer of left lower extremity (principal); E11.621 Type 2 diabetes mellitus with foot ulcer; L97.822 Non-pressure chronic ulcer of other part of left lower leg with fat layer exposed; L97.522 Non-pressure chronic ulcer of other part of left foot with fat layer exposed; Z79.84 Long term (current) use of oral hypoglycemic drugs; I89.0 Lymphedema, not elsewhere classified; T86.821 Skin graft (allograft) (autograft) failure; F10.14 Alcohol abuse with alcohol-induced mood disorder; I87.2 Venous insufficiency (chronic) (peripheral); D69.59 Other secondary thrombocytopenia; F17.210 Nicotine dependence, cigarettes, uncomplicated
CPT/HCPCS: 11042; A6207; A6210

== ENCOUNTER 2020-03-08 10:50 | Outpatient (CLI) | payer MEDICARE, OTHER ==
[~2020-03-08 10:50] MED LIST changes: +ASCO-352 PO; -ASCO500T9 PO
== END 2020-03-08 23:59 | disposition home health service (06) ==
LOC: WOU 10:50
PROVIDERS: ATTEND Podiatrist Foot & Ankle Surgery
DX: I87.312 Chronic venous hypertension (idiopathic) with ulcer of left lower extremity (principal); E11.621 Type 2 diabetes mellitus with foot ulcer; L97.822 Non-pressure chronic ulcer of other part of left lower leg with fat layer exposed; L97.522 Non-pressure chronic ulcer of other part of left foot with fat layer exposed; Z79.84 Long term (current) use of oral hypoglycemic drugs; I87.2 Venous insufficiency (chronic) (peripheral); I89.0 Lymphedema, not elsewhere classified; T86.821 Skin graft (allograft) (autograft) failure; F10.14 Alcohol abuse with alcohol-induced mood disorder; D69.59 Other secondary thrombocytopenia; F17.210 Nicotine dependence, cigarettes, uncomplicated
CPT/HCPCS: 11042; A6207; A6210

== ENCOUNTER 2020-03-15 10:45 | Outpatient (CLI) | payer MEDICARE, OTHER | END 2020-03-15 23:59 | disposition home health service (06) | LOC: WOU 10:45 | PROVIDERS: ATTEND Podiatrist Foot & Ankle Surgery | DX: I87.312 Chronic venous hypertension (idiopathic) with ulcer of left lower extremity (principal); L97.822 Non-pressure chronic ulcer of other part of left lower leg with fat layer exposed; I89.0 Lymphedema, not elsewhere classified; T86.821 Skin graft (allograft) (autograft) failure; E11.9 Type 2 diabetes mellitus without complications; Z79.84 Long term (current) use of oral hypoglycemic drugs; I87.2 Venous insufficiency (chronic) (peripheral); F10.14 Alcohol abuse with alcohol-induced mood disorder; D69.59 Other secondary thrombocytopenia; F17.210 Nicotine dependence, cigarettes, uncomplicated | CPT/HCPCS: 11042; A6207 ×2; A6210 ×2 ==

== ENCOUNTER 2020-03-22 10:40 | Outpatient (CLI) | payer MEDICARE, OTHER | END 2020-03-22 23:59 | disposition home health service (06) | LOC: WOU 10:40 | PROVIDERS: ATTEND Podiatrist Foot & Ankle Surgery | DX: I87.312 Chronic venous hypertension (idiopathic) with ulcer of left lower extremity (principal); L97.822 Non-pressure chronic ulcer of other part of left lower leg with fat layer exposed; I89.0 Lymphedema, not elsewhere classified; E11.9 Type 2 diabetes mellitus without complications; Z79.84 Long term (current) use of oral hypoglycemic drugs; I87.2 Venous insufficiency (chronic) (peripheral); D69.59 Other secondary thrombocytopenia; F10.14 Alcohol abuse with alcohol-induced mood disorder; T86.821 Skin graft (allograft) (autograft) failure; F17.210 Nicotine dependence, cigarettes, uncomplicated | CPT/HCPCS: 11042; A6207; A6210 ==

== ENCOUNTER 2020-03-29 10:30 | Outpatient (CLI) | payer MEDICARE, OTHER | END 2020-03-29 23:59 | disposition home health service (06) | LOC: WOU 10:30 | PROVIDERS: ATTEND Podiatrist Foot & Ankle Surgery | DX: I87.312 Chronic venous hypertension (idiopathic) with ulcer of left lower extremity (principal); L97.822 Non-pressure chronic ulcer of other part of left lower leg with fat layer exposed; I89.0 Lymphedema, not elsewhere classified; I87.2 Venous insufficiency (chronic) (peripheral); T86.821 Skin graft (allograft) (autograft) failure; F10.14 Alcohol abuse with alcohol-induced mood disorder; D69.59 Other secondary thrombocytopenia; F17.210 Nicotine dependence, cigarettes, uncomplicated; E11.9 Type 2 diabetes mellitus without complications; Z79.84 Long term (current) use of oral hypoglycemic drugs | CPT/HCPCS: 11042; A6207; A6210 ==

== ENCOUNTER 2020-04-05 10:30 | Outpatient (CLI) | payer MEDICARE, OTHER | END 2020-04-05 23:59 | disposition home health service (06) | LOC: WOU 10:30 | PROVIDERS: ATTEND Podiatrist Foot & Ankle Surgery | DX: I87.312 Chronic venous hypertension (idiopathic) with ulcer of left lower extremity (principal); L97.822 Non-pressure chronic ulcer of other part of left lower leg with fat layer exposed; S51.012A Laceration without foreign body of left elbow, initial encounter; S81.012A Laceration without foreign body, left knee, initial encounter; S81.011A Laceration without foreign body, right knee, initial encounter; W18.30XA Fall on same level, unspecified, initial encounter; Y92.89 Other specified places as the place of occurrence of the external cause; I87.2 Venous insufficiency (chronic) (peripheral); I89.0 Lymphedema, not elsewhere classified; Z79.84 Long term (current) use of oral hypoglycemic drugs; E11.9 Type 2 diabetes mellitus without complications; F10.14 Alcohol abuse with alcohol-induced mood disorder; F17.210 Nicotine dependence, cigarettes, uncomplicated | CPT/HCPCS: 11042; A6207 ==

== ENCOUNTER 2020-04-12 10:35 | Outpatient (CLI) | payer MEDICARE, OTHER | END 2020-04-12 23:59 | disposition home health service (06) | LOC: WOU 10:35 | PROVIDERS: ATTEND Podiatrist Foot & Ankle Surgery | DX: I87.312 Chronic venous hypertension (idiopathic) with ulcer of left lower extremity (principal); L97.822 Non-pressure chronic ulcer of other part of left lower leg with fat layer exposed; E11.621 Type 2 diabetes mellitus with foot ulcer; L97.522 Non-pressure chronic ulcer of other part of left foot with fat layer exposed; Z79.84 Long term (current) use of oral hypoglycemic drugs; S81.011D Laceration without foreign body, right knee, subsequent encounter; X58.XXXD Exposure to other specified factors, subsequent encounter; I89.0 Lymphedema, not elsewhere classified; I87.2 Venous insufficiency (chronic) (peripheral); F10.14 Alcohol abuse with alcohol-induced mood disorder; D69.59 Other secondary thrombocytopenia; F17.210 Nicotine dependence, cigarettes, uncomplicated; I10 Essential (primary) hypertension | CPT/HCPCS: 11042; A6207; A6210 ==

== ENCOUNTER 2020-04-19 10:47 | Outpatient (CLI) | payer MEDICARE, OTHER | END 2020-04-19 23:59 | disposition home health service (06) | LOC: WOU 10:47 | PROVIDERS: ATTEND Podiatrist Foot & Ankle Surgery | DX: I87.312 Chronic venous hypertension (idiopathic) with ulcer of left lower extremity (principal); E11.621 Type 2 diabetes mellitus with foot ulcer; L97.822 Non-pressure chronic ulcer of other part of left lower leg with fat layer exposed; L97.522 Non-pressure chronic ulcer of other part of left foot with fat layer exposed; Z79.84 Long term (current) use of oral hypoglycemic drugs; I87.2 Venous insufficiency (chronic) (peripheral); I89.0 Lymphedema, not elsewhere classified; F10.14 Alcohol abuse with alcohol-induced mood disorder; D69.59 Other secondary thrombocytopenia; F17.210 Nicotine dependence, cigarettes, uncomplicated | CPT/HCPCS: 11042; A6207; A6210 ==

== ENCOUNTER 2020-04-26 10:30 | Outpatient (CLI) | payer MEDICARE, OTHER | END 2020-04-26 23:59 | disposition home health service (06) | LOC: WOU 10:30 | PROVIDERS: ATTEND Podiatrist Foot & Ankle Surgery | DX: I87.312 Chronic venous hypertension (idiopathic) with ulcer of left lower extremity (principal); L97.822 Non-pressure chronic ulcer of other part of left lower leg with fat layer exposed; I89.0 Lymphedema, not elsewhere classified; I87.2 Venous insufficiency (chronic) (peripheral); E11.9 Type 2 diabetes mellitus without complications; Z79.84 Long term (current) use of oral hypoglycemic drugs; F10.14 Alcohol abuse with alcohol-induced mood disorder; D69.59 Other secondary thrombocytopenia; F17.210 Nicotine dependence, cigarettes, uncomplicated; I10 Essential (primary) hypertension | CPT/HCPCS: 11042; A6207; A6210 ==

== ENCOUNTER 2020-05-03 10:30 | Outpatient (CLI) | payer MEDICARE, OTHER | END 2020-05-03 23:59 | disposition home health service (06) | LOC: WOU 10:30 | PROVIDERS: ATTEND Podiatrist Foot & Ankle Surgery | DX: I87.312 Chronic venous hypertension (idiopathic) with ulcer of left lower extremity (principal); L97.822 Non-pressure chronic ulcer of other part of left lower leg with fat layer exposed; I89.0 Lymphedema, not elsewhere classified; E11.9 Type 2 diabetes mellitus without complications; Z79.84 Long term (current) use of oral hypoglycemic drugs; F10.14 Alcohol abuse with alcohol-induced mood disorder; I87.2 Venous insufficiency (chronic) (peripheral); D69.59 Other secondary thrombocytopenia; F17.210 Nicotine dependence, cigarettes, uncomplicated; T86.821 Skin graft (allograft) (autograft) failure | CPT/HCPCS: 11042; A6207; A6210 ==

== ENCOUNTER 2020-05-10 10:40 | Outpatient (CLI) | payer MEDICARE, OTHER | END 2020-05-10 23:59 | disposition home health service (06) | LOC: WOU 10:40 | PROVIDERS: ATTEND Podiatrist Foot & Ankle Surgery | DX: I87.312 Chronic venous hypertension (idiopathic) with ulcer of left lower extremity (principal); L97.822 Non-pressure chronic ulcer of other part of left lower leg with fat layer exposed; I89.0 Lymphedema, not elsewhere classified; E11.9 Type 2 diabetes mellitus without complications; Z79.84 Long term (current) use of oral hypoglycemic drugs; I87.2 Venous insufficiency (chronic) (peripheral); D69.59 Other secondary thrombocytopenia; F10.14 Alcohol abuse with alcohol-induced mood disorder; F17.210 Nicotine dependence, cigarettes, uncomplicated | CPT/HCPCS: 11042; A6207; A6210 ==

== ENCOUNTER 2020-05-17 10:25 | Outpatient (CLI) | payer MEDICARE, OTHER | END 2020-05-17 23:59 | disposition home health service (06) | LOC: WOU 10:25 | PROVIDERS: ATTEND Podiatrist Foot & Ankle Surgery | DX: I87.312 Chronic venous hypertension (idiopathic) with ulcer of left lower extremity (principal); L97.822 Non-pressure chronic ulcer of other part of left lower leg with fat layer exposed; I89.0 Lymphedema, not elsewhere classified; E11.9 Type 2 diabetes mellitus without complications; Z79.84 Long term (current) use of oral hypoglycemic drugs; F10.14 Alcohol abuse with alcohol-induced mood disorder; I87.2 Venous insufficiency (chronic) (peripheral); D69.59 Other secondary thrombocytopenia; F17.210 Nicotine dependence, cigarettes, uncomplicated; S81.011D Laceration without foreign body, right knee, subsequent encounter; X58.XXXD Exposure to other specified factors, subsequent encounter | CPT/HCPCS: 11042; A6207; A6209; A6210 ==

== ENCOUNTER 2020-05-24 10:35 | Outpatient (CLI) | payer MEDICARE, OTHER | END 2020-05-24 23:59 | disposition home health service (06) | LOC: WOU 10:35 | PROVIDERS: ATTEND Podiatrist Foot & Ankle Surgery | DX: I87.312 Chronic venous hypertension (idiopathic) with ulcer of left lower extremity (principal); L97.822 Non-pressure chronic ulcer of other part of left lower leg with fat layer exposed; S81.011D Laceration without foreign body, right knee, subsequent encounter; X58.XXXD Exposure to other specified factors, subsequent encounter; I89.0 Lymphedema, not elsewhere classified; I87.2 Venous insufficiency (chronic) (peripheral); E11.9 Type 2 diabetes mellitus without complications; Z79.84 Long term (current) use of oral hypoglycemic drugs; F10.14 Alcohol abuse with alcohol-induced mood disorder; D69.59 Other secondary thrombocytopenia; F17.210 Nicotine dependence, cigarettes, uncomplicated | CPT/HCPCS: 11042; A6207; A6209; A6210 ==

== ENCOUNTER 2020-05-31 10:05 | Outpatient (CLI) | payer MEDICARE, OTHER | END 2020-05-31 23:59 | disposition home or self-care (01) | LOC: US 10:05 | PROVIDERS: ATTEND Internal Medicine Hematology & Oncology | DX: R16.0 Hepatomegaly, not elsewhere classified (principal); R16.1 Splenomegaly, not elsewhere classified | CPT/HCPCS: 76700-TC ==

== ENCOUNTER 2020-05-31 10:40 | Outpatient (CLI) | payer MEDICARE, OTHER | END 2020-05-31 23:59 | disposition home health service (06) | LOC: WOU 10:40 | PROVIDERS: ATTEND Podiatrist Foot & Ankle Surgery | DX: I87.312 Chronic venous hypertension (idiopathic) with ulcer of left lower extremity (principal); L97.822 Non-pressure chronic ulcer of other part of left lower leg with fat layer exposed; S81.011D Laceration without foreign body, right knee, subsequent encounter; X58.XXXD Exposure to other specified factors, subsequent encounter; I89.0 Lymphedema, not elsewhere classified; I87.2 Venous insufficiency (chronic) (peripheral); E11.9 Type 2 diabetes mellitus without complications; Z79.84 Long term (current) use of oral hypoglycemic drugs; F17.210 Nicotine dependence, cigarettes, uncomplicated; F10.14 Alcohol abuse with alcohol-induced mood disorder; D69.59 Other secondary thrombocytopenia | CPT/HCPCS: 11042; A6207; A6210 ==

== ENCOUNTER 2020-06-07 10:40 | Outpatient (CLI) | payer MEDICARE, OTHER | END 2020-06-07 23:59 | disposition home health service (06) | LOC: WOU 10:40 | PROVIDERS: ATTEND Podiatrist Foot & Ankle Surgery | DX: I87.312 Chronic venous hypertension (idiopathic) with ulcer of left lower extremity (principal); L97.822 Non-pressure chronic ulcer of other part of left lower leg with fat layer exposed; S81.011D Laceration without foreign body, right knee, subsequent encounter; X58.XXXD Exposure to other specified factors, subsequent encounter; E11.9 Type 2 diabetes mellitus without complications; Z79.84 Long term (current) use of oral hypoglycemic drugs; I87.2 Venous insufficiency (chronic) (peripheral); I89.0 Lymphedema, not elsewhere classified; F10.14 Alcohol abuse with alcohol-induced mood disorder; D69.59 Other secondary thrombocytopenia; F17.210 Nicotine dependence, cigarettes, uncomplicated | CPT/HCPCS: 11042; A6207; A6210 ==

== ENCOUNTER 2020-06-14 10:40 | Outpatient (CLI) | payer MEDICARE, OTHER | END 2020-06-14 23:59 | disposition home health service (06) | LOC: WOU 10:40 | PROVIDERS: ATTEND Podiatrist Foot & Ankle Surgery | DX: I87.312 Chronic venous hypertension (idiopathic) with ulcer of left lower extremity (principal); L97.822 Non-pressure chronic ulcer of other part of left lower leg with fat layer exposed; I89.0 Lymphedema, not elsewhere classified; E11.9 Type 2 diabetes mellitus without complications; Z79.84 Long term (current) use of oral hypoglycemic drugs; I87.2 Venous insufficiency (chronic) (peripheral); D69.59 Other secondary thrombocytopenia; F10.14 Alcohol abuse with alcohol-induced mood disorder; F17.210 Nicotine dependence, cigarettes, uncomplicated; I10 Essential (primary) hypertension | CPT/HCPCS: 11042; A6207; A6210 ==

== ENCOUNTER → 2020-06-21 | Outpatient (CLI) | payer MEDICARE, OTHER | END | disposition home health service (06) | LOC: WOU 10:40 | PROVIDERS: ATTEND Podiatrist Foot & Ankle Surgery | DX: I87.312 Chronic venous hypertension (idiopathic) with ulcer of left lower extremity (principal); L97.822 Non-pressure chronic ulcer of other part of left lower leg with fat layer exposed; I89.0 Lymphedema, not elsewhere classified; I87.2 Venous insufficiency (chronic) (peripheral); F10.14 Alcohol abuse with alcohol-induced mood disorder; D69.59 Other secondary thrombocytopenia; F17.210 Nicotine dependence, cigarettes, uncomplicated; E11.9 Type 2 diabetes mellitus without complications; Z79.84 Long term (current) use of oral hypoglycemic drugs | CPT/HCPCS: 11042; A6207; A6210 ==

== ENCOUNTER 2020-06-28 10:30 | Outpatient (CLI) | payer MEDICARE, OTHER ==
[2020-06-28] MEDS ORDERED: LIDOCAINE SOLN 4% 50 ML BOTTLE ONE (10:51)
[2020-06-28] MEDS ORDERED: UREA 10% -AHA 4% CREAM 57 GM TUBE ONE (11:27)
== END 2020-06-28 23:59 | disposition home health service (06) ==
LOC: WOU 10:30
PROVIDERS: ATTEND Podiatrist Foot & Ankle Surgery
DX: I87.312 Chronic venous hypertension (idiopathic) with ulcer of left lower extremity (principal); L97.822 Non-pressure chronic ulcer of other part of left lower leg with fat layer exposed; I89.0 Lymphedema, not elsewhere classified; I87.2 Venous insufficiency (chronic) (peripheral); F10.14 Alcohol abuse with alcohol-induced mood disorder; F17.210 Nicotine dependence, cigarettes, uncomplicated; D69.59 Other secondary thrombocytopenia; E11.9 Type 2 diabetes mellitus without complications; Z79.84 Long term (current) use of oral hypoglycemic drugs
CPT/HCPCS: 11042; A6207; A6210

== ENCOUNTER 2020-07-05 10:30 | Outpatient (CLI) | payer MEDICARE, OTHER ==
[2020-07-05] MEDS ORDERED: LIDOCAINE SOLN 4% 50 ML BOTTLE ONE (10:42)
== END 2020-07-05 23:59 | disposition home health service (06) ==
LOC: WOU 10:30
PROVIDERS: ATTEND Podiatrist Foot & Ankle Surgery
DX: I87.312 Chronic venous hypertension (idiopathic) with ulcer of left lower extremity (principal); L97.822 Non-pressure chronic ulcer of other part of left lower leg with fat layer exposed; I89.0 Lymphedema, not elsewhere classified; I87.2 Venous insufficiency (chronic) (peripheral); E11.9 Type 2 diabetes mellitus without complications; Z79.84 Long term (current) use of oral hypoglycemic drugs; F10.14 Alcohol abuse with alcohol-induced mood disorder; D69.59 Other secondary thrombocytopenia; F17.210 Nicotine dependence, cigarettes, uncomplicated
CPT/HCPCS: 11042; A6207; A6210

== ENCOUNTER 2020-07-12 10:30 | Outpatient (CLI) | payer MEDICARE, OTHER ==
[2020-07-12] MEDS ORDERED: LIDOCAINE SOLN 4% 50 ML BOTTLE ONE (10:35)
[2020-07-12] MEDS ORDERED: UREA 10% -AHA 4% CREAM 57 GM TUBE ONE (11:00)
== END 2020-07-12 23:59 | disposition home health service (06) ==
LOC: WOU 10:30
PROVIDERS: ATTEND Podiatrist Foot & Ankle Surgery
DX: I87.312 Chronic venous hypertension (idiopathic) with ulcer of left lower extremity (principal); L97.822 Non-pressure chronic ulcer of other part of left lower leg with fat layer exposed; S81.012A Laceration without foreign body, left knee, initial encounter; W18.30XA Fall on same level, unspecified, initial encounter; Y92.89 Other specified places as the place of occurrence of the external cause; I89.0 Lymphedema, not elsewhere classified; I87.2 Venous insufficiency (chronic) (peripheral); E11.9 Type 2 diabetes mellitus without complications; Z79.84 Long term (current) use of oral hypoglycemic drugs; F10.14 Alcohol abuse with alcohol-induced mood disorder; F17.210 Nicotine dependence, cigarettes, uncomplicated; D69.59 Other secondary thrombocytopenia
CPT/HCPCS: 11042; A6207; A6209; A6210

== ENCOUNTER 2020-07-19 10:30 | Outpatient (CLI) | payer MEDICARE, OTHER | END 2020-07-19 23:59 | disposition home health service (06) | LOC: WOU 10:30 | PROVIDERS: ATTEND Podiatrist Foot & Ankle Surgery | DX: I87.312 Chronic venous hypertension (idiopathic) with ulcer of left lower extremity (principal); L97.822 Non-pressure chronic ulcer of other part of left lower leg with fat layer exposed; S81.012D Laceration without foreign body, left knee, subsequent encounter; X58.XXXD Exposure to other specified factors, subsequent encounter; I89.0 Lymphedema, not elsewhere classified; E11.9 Type 2 diabetes mellitus without complications; Z79.84 Long term (current) use of oral hypoglycemic drugs; F17.210 Nicotine dependence, cigarettes, uncomplicated; F10.14 Alcohol abuse with alcohol-induced mood disorder | CPT/HCPCS: 11042; A6207; A6209; A6210 ×2 ==

== ENCOUNTER 2020-07-26 10:40 | Outpatient (CLI) | payer MEDICARE, OTHER ==
[2020-07-26] MEDS ORDERED: UREA 10% -AHA 4% CREAM 57 GM TUBE ONE (11:20)
== END 2020-07-26 23:59 | disposition home health service (06) ==
LOC: WOU 10:40
PROVIDERS: ATTEND Podiatrist Foot & Ankle Surgery
DX: I87.312 Chronic venous hypertension (idiopathic) with ulcer of left lower extremity (principal); L97.825 Non-pressure chronic ulcer of other part of left lower leg with muscle involvement without evidence of necrosis; I89.0 Lymphedema, not elsewhere classified; E11.9 Type 2 diabetes mellitus without complications; Z79.84 Long term (current) use of oral hypoglycemic drugs; F17.210 Nicotine dependence, cigarettes, uncomplicated; F10.14 Alcohol abuse with alcohol-induced mood disorder; D69.59 Other secondary thrombocytopenia
CPT/HCPCS: A6207; A6210; G0463

== ENCOUNTER 2020-08-02 10:40 | Outpatient (CLI) | payer MEDICARE, OTHER | END 2020-08-02 23:59 | disposition home health service (06) | LOC: WOU 10:40 | PROVIDERS: ATTEND Podiatrist Foot & Ankle Surgery | DX: I87.312 Chronic venous hypertension (idiopathic) with ulcer of left lower extremity (principal); L97.822 Non-pressure chronic ulcer of other part of left lower leg with fat layer exposed; R23.8 Other skin changes; I89.0 Lymphedema, not elsewhere classified; I87.2 Venous insufficiency (chronic) (peripheral); D69.59 Other secondary thrombocytopenia; F17.210 Nicotine dependence, cigarettes, uncomplicated; F10.14 Alcohol abuse with alcohol-induced mood disorder; E11.9 Type 2 diabetes mellitus without complications; Z79.84 Long term (current) use of oral hypoglycemic drugs | CPT/HCPCS: 29581; A6207; A6210 ==

== ENCOUNTER 2020-08-09 10:40 | Outpatient (CLI) | payer MEDICARE, OTHER ==
[2020-08-09] MEDS ORDERED: UREA 10% -AHA 4% CREAM 57 GM TUBE ONE (11:21)
== END 2020-08-09 23:59 | disposition home health service (06) ==
LOC: WOU 10:40
PROVIDERS: ATTEND Podiatrist Foot & Ankle Surgery
DX: I87.312 Chronic venous hypertension (idiopathic) with ulcer of left lower extremity (principal); L97.822 Non-pressure chronic ulcer of other part of left lower leg with fat layer exposed; S81.012A Laceration without foreign body, left knee, initial encounter; X58.XXXA Exposure to other specified factors, initial encounter; Y92.89 Other specified places as the place of occurrence of the external cause; E11.9 Type 2 diabetes mellitus without complications; Z79.84 Long term (current) use of oral hypoglycemic drugs; R23.8 Other skin changes; I89.0 Lymphedema, not elsewhere classified; I87.2 Venous insufficiency (chronic) (peripheral); D69.59 Other secondary thrombocytopenia; F10.14 Alcohol abuse with alcohol-induced mood disorder; F17.210 Nicotine dependence, cigarettes, uncomplicated
CPT/HCPCS: 11042; A6207; A6210

== ENCOUNTER 2020-08-16 10:45 | Outpatient (CLI) | payer MEDICARE, OTHER | END 2020-08-16 23:59 | disposition home health service (06) | LOC: WOU 10:45 | PROVIDERS: ATTEND Podiatrist Foot & Ankle Surgery | DX: E11.621 Type 2 diabetes mellitus with foot ulcer (principal); L97.512 Non-pressure chronic ulcer of other part of right foot with fat layer exposed; I87.312 Chronic venous hypertension (idiopathic) with ulcer of left lower extremity; L97.822 Non-pressure chronic ulcer of other part of left lower leg with fat layer exposed; S81.012D Laceration without foreign body, left knee, subsequent encounter; X58.XXXD Exposure to other specified factors, subsequent encounter; E11.9 Type 2 diabetes mellitus without complications; Z79.84 Long term (current) use of oral hypoglycemic drugs; I89.0 Lymphedema, not elsewhere classified; I87.2 Venous insufficiency (chronic) (peripheral); F10.14 Alcohol abuse with alcohol-induced mood disorder; F17.210 Nicotine dependence, cigarettes, uncomplicated; D69.59 Other secondary thrombocytopenia | CPT/HCPCS: 11042; A6207; A6210 ==

== ENCOUNTER 2020-08-23 10:40 | Outpatient (CLI) | payer MEDICARE, OTHER | END 2020-08-23 23:59 | disposition home health service (06) | LOC: WOU 10:40 | PROVIDERS: ATTEND Podiatrist Foot & Ankle Surgery | DX: E11.621 Type 2 diabetes mellitus with foot ulcer (principal); L97.512 Non-pressure chronic ulcer of other part of right foot with fat layer exposed; S81.012D Laceration without foreign body, left knee, subsequent encounter; X58.XXXD Exposure to other specified factors, subsequent encounter; I87.2 Venous insufficiency (chronic) (peripheral); I89.0 Lymphedema, not elsewhere classified; F10.14 Alcohol abuse with alcohol-induced mood disorder; F17.210 Nicotine dependence, cigarettes, uncomplicated; D69.59 Other secondary thrombocytopenia; Z86.19 Personal history of other infectious and parasitic diseases; Z79.84 Long term (current) use of oral hypoglycemic drugs | CPT/HCPCS: 11042; A6207 ×2; A6210 ==

== ENCOUNTER 2020-08-30 10:45 | Outpatient (CLI) | payer MEDICARE, OTHER ==
[2020-08-30] MEDS ORDERED: LIDOCAINE SOLN 4% 50 ML BOTTLE ONE (10:54)
[2020-08-30] MEDS ORDERED: UREA 10% -AHA 4% CREAM 57 GM TUBE ONE (11:56)
== END 2020-08-30 23:59 | disposition home health service (06) ==
LOC: WOU 10:45
PROVIDERS: ATTEND Podiatrist Foot & Ankle Surgery
DX: E11.621 Type 2 diabetes mellitus with foot ulcer (principal); L97.522 Non-pressure chronic ulcer of other part of left foot with fat layer exposed; L97.512 Non-pressure chronic ulcer of other part of right foot with fat layer exposed; I87.312 Chronic venous hypertension (idiopathic) with ulcer of left lower extremity; L97.822 Non-pressure chronic ulcer of other part of left lower leg with fat layer exposed; S81.012D Laceration without foreign body, left knee, subsequent encounter; X58.XXXD Exposure to other specified factors, subsequent encounter; I89.0 Lymphedema, not elsewhere classified; I87.2 Venous insufficiency (chronic) (peripheral); F17.210 Nicotine dependence, cigarettes, uncomplicated; F10.14 Alcohol abuse with alcohol-induced mood disorder; D69.59 Other secondary thrombocytopenia; Z79.84 Long term (current) use of oral hypoglycemic drugs
CPT/HCPCS: 82962; 11042; 87070; 87075; 87077; 87186 ×2; A6210; A6207

== ENCOUNTER 2020-09-06 10:30 | Outpatient (CLI) | payer MEDICARE, OTHER ==
[2020-09-06] MEDS ORDERED: LIDOCAINE SOLN 4% 50 ML BOTTLE ONE (11:00)
== END 2020-09-06 23:59 | disposition home health service (06) ==
LOC: WOU 10:30
PROVIDERS: ATTEND Podiatrist Foot & Ankle Surgery
DX: E11.621 Type 2 diabetes mellitus with foot ulcer (principal); L97.522 Non-pressure chronic ulcer of other part of left foot with fat layer exposed; I87.312 Chronic venous hypertension (idiopathic) with ulcer of left lower extremity; L97.828 Non-pressure chronic ulcer of other part of left lower leg with other specified severity; I89.0 Lymphedema, not elsewhere classified; F10.14 Alcohol abuse with alcohol-induced mood disorder; F17.210 Nicotine dependence, cigarettes, uncomplicated; D69.59 Other secondary thrombocytopenia; T86.828 Other complications of skin graft (allograft) (autograft); Z79.84 Long term (current) use of oral hypoglycemic drugs
CPT/HCPCS: 11042; A6207; A6210

== ENCOUNTER 2020-09-13 10:30 | Outpatient (CLI) | payer MEDICARE, OTHER ==
[2020-09-13] MEDS ORDERED: UREA 10% -AHA 4% CREAM 57 GM TUBE ONE (11:35)
== END 2020-09-13 23:59 | disposition home health service (06) ==
LOC: WOU 10:30
PROVIDERS: ATTEND Podiatrist Foot & Ankle Surgery
DX: E11.621 Type 2 diabetes mellitus with foot ulcer (principal); L97.522 Non-pressure chronic ulcer of other part of left foot with fat layer exposed; I89.0 Lymphedema, not elsewhere classified; I87.2 Venous insufficiency (chronic) (peripheral); F10.14 Alcohol abuse with alcohol-induced mood disorder; F17.210 Nicotine dependence, cigarettes, uncomplicated; D69.59 Other secondary thrombocytopenia; Z79.84 Long term (current) use of oral hypoglycemic drugs
CPT/HCPCS: 11042; A6207; A6210

== ENCOUNTER 2020-09-20 10:40 | Outpatient (CLI) | payer MEDICARE, OTHER ==
[2020-09-20] MEDS ORDERED: LIDOCAINE SOLN 4% 50 ML BOTTLE ONE (10:44)
== END 2020-09-20 23:59 | disposition home health service (06) ==
LOC: WOU 10:40
PROVIDERS: ATTEND Podiatrist Foot & Ankle Surgery
DX: E11.621 Type 2 diabetes mellitus with foot ulcer (principal); L97.522 Non-pressure chronic ulcer of other part of left foot with fat layer exposed; Z79.84 Long term (current) use of oral hypoglycemic drugs; S81.012D Laceration without foreign body, left knee, subsequent encounter; X58.XXXD Exposure to other specified factors, subsequent encounter; I87.2 Venous insufficiency (chronic) (peripheral); I89.0 Lymphedema, not elsewhere classified; F10.14 Alcohol abuse with alcohol-induced mood disorder; F17.210 Nicotine dependence, cigarettes, uncomplicated; D69.59 Other secondary thrombocytopenia
CPT/HCPCS: 11042; A6207; A6210

== ENCOUNTER 2020-09-21 13:48 | Outpatient (CLI) | payer MEDICARE, OTHER | END 2020-09-21 23:59 | disposition home or self-care (01) | LOC: CARD 13:48 | PROVIDERS: ATTEND Internal Medicine Hematology & Oncology | DX: I82.432 Acute embolism and thrombosis of left popliteal vein (principal); I82.412 Acute embolism and thrombosis of left femoral vein; I82.492 Acute embolism and thrombosis of other specified deep vein of left lower extremity | CPT/HCPCS: 93971-TC ==

== ENCOUNTER 2020-09-27 10:40 | Outpatient (CLI) | payer MEDICARE, OTHER ==
[2020-09-27] MEDS ORDERED: LIDOCAINE SOLN 4% 50 ML BOTTLE ONE ×2 (10:50→11:14)
[2020-09-27] MEDS ORDERED: UREA 10% -AHA 4% CREAM 57 GM TUBE ONE (11:24)
== END 2020-09-27 23:59 | disposition home health service (06) ==
LOC: WOU 10:40
PROVIDERS: ATTEND Podiatrist Foot & Ankle Surgery
DX: E11.621 Type 2 diabetes mellitus with foot ulcer (principal); L97.522 Non-pressure chronic ulcer of other part of left foot with fat layer exposed; Z79.84 Long term (current) use of oral hypoglycemic drugs; S91.012D Laceration without foreign body, left ankle, subsequent encounter; X58.XXXD Exposure to other specified factors, subsequent encounter; I87.2 Venous insufficiency (chronic) (peripheral); I89.0 Lymphedema, not elsewhere classified; F10.14 Alcohol abuse with alcohol-induced mood disorder; D69.59 Other secondary thrombocytopenia; F17.210 Nicotine dependence, cigarettes, uncomplicated
CPT/HCPCS: 11042; A6207; A6210

== ENCOUNTER 2020-10-04 10:35 | Outpatient (CLI) | payer MEDICARE, OTHER ==
[2020-10-04] MEDS ORDERED: UREA 10% -AHA 4% CREAM 57 GM TUBE ONE (11:20)
[2020-10-04] MEDS ORDERED: LIDOCAINE SOLN 4% 50 ML BOTTLE ONE (11:20)
== END 2020-10-04 23:59 | disposition home health service (06) ==
LOC: WOU 10:35
PROVIDERS: ATTEND Podiatrist Foot & Ankle Surgery
DX: E11.621 Type 2 diabetes mellitus with foot ulcer (principal); L97.522 Non-pressure chronic ulcer of other part of left foot with fat layer exposed; I89.0 Lymphedema, not elsewhere classified; I87.2 Venous insufficiency (chronic) (peripheral); T86.828 Other complications of skin graft (allograft) (autograft); F10.14 Alcohol abuse with alcohol-induced mood disorder; D69.59 Other secondary thrombocytopenia; F17.210 Nicotine dependence, cigarettes, uncomplicated; Z79.84 Long term (current) use of oral hypoglycemic drugs
CPT/HCPCS: 11042; A6207; A6210

== ENCOUNTER 2020-10-11 10:30 | Outpatient (CLI) | payer MEDICARE, OTHER ==
[2020-10-11] MEDS ORDERED: LIDOCAINE SOLN 4% 50 ML BOTTLE ONE (10:38)
== END 2020-10-11 23:59 | disposition home health service (06) ==
LOC: WOU 10:30
PROVIDERS: ATTEND Podiatrist Foot & Ankle Surgery
DX: E11.621 Type 2 diabetes mellitus with foot ulcer (principal); L97.522 Non-pressure chronic ulcer of other part of left foot with fat layer exposed; I89.0 Lymphedema, not elsewhere classified; I87.2 Venous insufficiency (chronic) (peripheral); D69.59 Other secondary thrombocytopenia; F10.14 Alcohol abuse with alcohol-induced mood disorder; F17.210 Nicotine dependence, cigarettes, uncomplicated; Z79.84 Long term (current) use of oral hypoglycemic drugs
CPT/HCPCS: 11042; A6207; A6210

== ENCOUNTER 2020-10-25 10:35 | Outpatient (CLI) | payer MEDICARE, OTHER | END 2020-10-25 23:59 | disposition home health service (06) | LOC: WOU 10:35 | PROVIDERS: ATTEND Podiatrist Foot & Ankle Surgery | DX: E11.621 Type 2 diabetes mellitus with foot ulcer (principal); L97.522 Non-pressure chronic ulcer of other part of left foot with fat layer exposed; I87.2 Venous insufficiency (chronic) (peripheral); I89.0 Lymphedema, not elsewhere classified; F10.14 Alcohol abuse with alcohol-induced mood disorder; D69.59 Other secondary thrombocytopenia; F17.210 Nicotine dependence, cigarettes, uncomplicated; Z79.84 Long term (current) use of oral hypoglycemic drugs | CPT/HCPCS: 11042; A6207; A6210 ==

== ENCOUNTER 2020-11-01 10:30 | Outpatient (CLI) | payer MEDICARE, OTHER | END 2020-11-01 23:59 | disposition home health service (06) | LOC: WOU 10:30 | PROVIDERS: ATTEND Podiatrist Foot & Ankle Surgery | DX: E11.621 Type 2 diabetes mellitus with foot ulcer (principal); L97.522 Non-pressure chronic ulcer of other part of left foot with fat layer exposed; I89.0 Lymphedema, not elsewhere classified; I87.2 Venous insufficiency (chronic) (peripheral); D69.59 Other secondary thrombocytopenia; F17.210 Nicotine dependence, cigarettes, uncomplicated; F10.14 Alcohol abuse with alcohol-induced mood disorder; L60.3 Nail dystrophy; Z79.84 Long term (current) use of oral hypoglycemic drugs | CPT/HCPCS: 11042; A6207 ==

== ENCOUNTER 2020-11-08 10:35 | Outpatient (CLI) | payer MEDICARE, OTHER | END 2020-11-08 23:59 | disposition home health service (06) | LOC: WOU 10:35 | PROVIDERS: ATTEND Podiatrist Foot & Ankle Surgery | DX: E11.621 Type 2 diabetes mellitus with foot ulcer (principal); L97.522 Non-pressure chronic ulcer of other part of left foot with fat layer exposed; Z79.84 Long term (current) use of oral hypoglycemic drugs; I89.0 Lymphedema, not elsewhere classified; I87.2 Venous insufficiency (chronic) (peripheral); F17.210 Nicotine dependence, cigarettes, uncomplicated; F10.14 Alcohol abuse with alcohol-induced mood disorder; D69.59 Other secondary thrombocytopenia; L60.3 Nail dystrophy | CPT/HCPCS: 11042; A6207; A6210 ==

== ENCOUNTER 2020-12-13 10:40 | Outpatient (CLI) | payer MEDICARE, OTHER ==
[2020-12-13] MEDS ORDERED: LIDOCAINE SOLN 4% 50 ML BOTTLE ONE (10:45)
== END 2020-12-13 23:59 | disposition home health service (06) ==
LOC: WOU 10:40
PROVIDERS: ATTEND Podiatrist Foot & Ankle Surgery
DX: I87.2 Venous insufficiency (chronic) (peripheral) (principal); L60.3 Nail dystrophy; I89.0 Lymphedema, not elsewhere classified; F10.14 Alcohol abuse with alcohol-induced mood disorder; F17.210 Nicotine dependence, cigarettes, uncomplicated; D69.59 Other secondary thrombocytopenia; E11.9 Type 2 diabetes mellitus without complications; Z79.84 Long term (current) use of oral hypoglycemic drugs
CPT/HCPCS: G0463

== ENCOUNTER 2020-12-27 10:40 | Outpatient (CLI) | payer MEDICARE, OTHER | END 2020-12-27 23:59 | disposition home health service (06) | LOC: WOU 10:40 | PROVIDERS: ATTEND Podiatrist Foot & Ankle Surgery | DX: Z09 Encounter for follow-up examination after completed treatment for conditions other than malignant neoplasm (principal); Z86.31 Personal history of diabetic foot ulcer; I89.0 Lymphedema, not elsewhere classified; I87.2 Venous insufficiency (chronic) (peripheral); F17.210 Nicotine dependence, cigarettes, uncomplicated; F10.14 Alcohol abuse with alcohol-induced mood disorder; L84 Corns and callosities; L60.3 Nail dystrophy; D69.59 Other secondary thrombocytopenia; Z79.84 Long term (current) use of oral hypoglycemic drugs | CPT/HCPCS: G0463 ==

== ENCOUNTER 2021-02-06 09:17 | Outpatient (CLI) | payer MEDICARE, OTHER | END 2021-02-06 23:59 | disposition home or self-care (01) | LOC: US 09:17 | PROVIDERS: ATTEND Internal Medicine Hematology & Oncology | DX: R16.2 Hepatomegaly with splenomegaly, not elsewhere classified (principal); K74.60 Unspecified cirrhosis of liver; R63.4 Abnormal weight loss | CPT/HCPCS: 76700-TC ==

== ENCOUNTER 2021-12-04 11:05 | Outpatient (CLI) | payer MEDICARE, OTHER | END 2021-12-04 23:59 | disposition home or self-care (01) | LOC: US 11:05 | PROVIDERS: ATTEND Internal Medicine Hematology & Oncology | DX: K74.60 Unspecified cirrhosis of liver (principal); R16.2 Hepatomegaly with splenomegaly, not elsewhere classified; K76.0 Fatty (change of) liver, not elsewhere classified | CPT/HCPCS: 76700-TC ==

== ENCOUNTER 2022-09-25 10:55 | Outpatient (CLI) | payer MEDICARE, OTHER ==
[~2022-09-25 10:55] MED LIST changes: +LIDOCAINE SOLN 4% 50 ML BOTTLE ONE
[2022-09-25 13:10] LABS: BASOPHILS % (AUTO) 1.1 % (0.0-2.0); EOSINOPHILS % (AUTO) 6.7 % (0.0-6.0); HEMATOCRIT 33 % (39-51); HEMOGLOBIN 11.3 g/dL (13.5-17.5); LYMPHOCYTES % (AUTO) 21.4 % (20.0-44.0); MEAN CORPUSCULAR HGB CONC 35 g/dl (31.0-36.0); MEAN CORPUSCULAR VOLUME 96 fL (80-96); MONOCYTES # (AUTO) 1.1 K/uL (0.1-1.30); MONOCYTES % (AUTO) 23.2 % (2.0-12.0); NEUTROPHILS # (AUTO) 2.2 K/uL (1.8-8.9); NEUTROPHILS % (AUTO) 47.6 % (43.0-81.0); PLATELET COUNT (AUTO) 161 K/uL (150-450); RED BLOOD CELL COUNT(AUTO) 3.42 MIL/uL (4.5-6.0); WHITE BLOOD COUNT (AUTO) 4.6 K/uL (4.3-11.0)
[2022-09-25 13:26] LABS: PREALBUMIN 22.2 MG/DL (18.0-35.7)
[2022-09-25 13:28] LABS: ALBUMIN 3.9 g/dL (3.4-5.0); BILIRUBIN,TOTAL 0.8 mg/dL (0.2-1.0); CALCIUM, SERUM 9.3 mg/dL (8.5-10.1); CREATININE 1.2 mg/dL (0.6-1.3); POTASSIUM 5.5 mmol/L (3.5-5.1); TOTAL PROTEIN, SERUM 8.8 g/dL (6.4-8.2)
[2022-09-25 21:39] LABS: EOSINOPHILS % (MANUAL) 9 % (0-4); LYMPHOCYTES % (MANUAL) 21 % (16-48); MONOCYTES % (MANUAL) 16 % (0-11.0); NEUTROPHILS % (MANUAL) 54 (42-76)
== END 2022-09-25 23:59 | disposition home or self-care (01) ==
LOC: WOU 10:55
PROVIDERS: ATTEND Podiatrist Foot & Ankle Surgery
DX: I87.312 Chronic venous hypertension (idiopathic) with ulcer of left lower extremity (principal); L97.823 Non-pressure chronic ulcer of other part of left lower leg with necrosis of muscle; I87.2 Venous insufficiency (chronic) (peripheral); M79.662 Pain in left lower leg; F17.210 Nicotine dependence, cigarettes, uncomplicated; E11.9 Type 2 diabetes mellitus without complications; Z79.84 Long term (current) use of oral hypoglycemic drugs; I10 Essential (primary) hypertension
CPT/HCPCS: 11043; 11046; 73630; 85025; 87077 ×2; 87075 ×2; 87070 ×2; 83036; 87186 ×2; 36415; 80053; 84134; 85007; A6210

== ENCOUNTER 2022-10-30 10:45 | Outpatient (CLI) | payer MEDICARE, OTHER ==
[~2022-10-30 10:45] MED LIST changes: -LIDOCAINE SOLN 4% 50 ML BOTTLE ONE
[2022-10-30] MEDS ORDERED: LIDOCAINE SOLN 4% 50 ML BOTTLE ONE (10:56)
== END 2022-10-30 23:59 | disposition home or self-care (01) ==
LOC: WOU 10:45
PROVIDERS: ATTEND Podiatrist Foot & Ankle Surgery
DX: I87.312 Chronic venous hypertension (idiopathic) with ulcer of left lower extremity (principal); L97.823 Non-pressure chronic ulcer of other part of left lower leg with necrosis of muscle; L03.116 Cellulitis of left lower limb; I87.2 Venous insufficiency (chronic) (peripheral); M79.662 Pain in left lower leg; F17.210 Nicotine dependence, cigarettes, uncomplicated; E11.9 Type 2 diabetes mellitus without complications; Z79.84 Long term (current) use of oral hypoglycemic drugs
CPT/HCPCS: 11043; A6253

== ENCOUNTER 2022-10-30 16:58 | Inpatient (IN) | payer MEDICARE, OTHER ==
[~2022-10-30] VITALS: Ht 180.3 cm; Wt 77.1 kg
--- NOTE | 2022-10-30 18:40 | NUR ---
at [facility] for saba
[2022-10-30] MEDS ORDERED: PIPERACILLIN /TAZOBACTAM 3.375 G in IV D5W 50 ML IV ONE (19:00)
[2022-10-30] MEDS ORDERED: VANCOMYCIN 1 GM in IV D5W 250 ML IV ONE (19:00)
--- NOTE | 2022-10-30 19:00 | NUR ---
iv line started blood drawn and sent to lab.
[2022-10-30] MEDS ORDERED: PIPERACILLIN /TAZOBACTAM 3.375 G VIAL IV ONE (19:37)
--- NOTE | 2022-10-30 19:57 | NUR ---
covid swab collected and sent to lab.
[2022-10-30 20:06] LABS: CALCIUM, SERUM 8.2 mg/dL (8.5-10.1); CREATININE 1.1 mg/dL (0.6-1.3); POTASSIUM 3.8 mmol/L (3.5-5.1)
[2022-10-30 20:08] LABS: BASOPHILS % (AUTO) 0.1 % (0.0-2.0); EOSINOPHILS % (AUTO) 0.2 % (0.0-6.0); HEMATOCRIT 28 % (39-51); HEMOGLOBIN 9.5 g/dL (13.5-17.5); LYMPHOCYTES # (AUTO) 0.2 K/uL (0.8-4.8); LYMPHOCYTES % (AUTO) 2.5 % (20.0-44.0); MEAN CORPUSCULAR HGB CONC 34 g/dl (31.0-36.0); MEAN CORPUSCULAR VOLUME 98 fL (80-96); MONOCYTES # (AUTO) 1.4 K/uL (0.1-1.30); NEUTROPHILS # (AUTO) 5.5 K/uL (1.8-8.9); NEUTROPHILS % (AUTO) 77.2 % (43.0-81.0); PLATELET COUNT (AUTO) 136 K/uL (150-450); RED BLOOD CELL COUNT(AUTO) 2.85 MIL/uL (4.5-6.0); WHITE BLOOD COUNT (AUTO) 7.1 K/uL (4.3-11.0)
[2022-10-30 20:37] LABS: EOSINOPHILS % (MANUAL) 1 % (0-4); LYMPHOCYTES % (MANUAL) 2 % (16-48); MONOCYTES % (MANUAL) 12 % (0-11.0); NEUTROPHILS % (MANUAL) 85 (42-76)
[2022-10-30 20:38] LABS: ALBUMIN 3.1 g/dL (3.4-5.0); BILIRUBIN,DIRECT 0.2 mg/dL (0.0-0.2); BILIRUBIN,TOTAL 0.7 mg/dL (0.2-1.0); TOTAL PROTEIN, SERUM 7.6 g/dL (6.4-8.2)
[2022-10-30] MEDS ORDERED: VANCOMYCIN 1 GM VIAL ONE (20:44)
--- NOTE | 2022-10-30 21:25 | NUR ---
Seen by JENY Contreras at bedside.
--- NOTE | 2022-10-30 21:39 | NUR ---
ROOM 325-2
[2022-10-30] MEDS ORDERED: CLONIDINE HCL 0.1 MG TABLET PO PRN (22:00)
[2022-10-30] MEDS ORDERED: BISACODYL (5 MG) 5 MG TABLET.DR PO PRN (22:00)
[2022-10-30] MEDS ORDERED: MAG HYDROX/AL HYDROX/SIMETH 30 ML UDC PO PRN (22:00)
[2022-10-30] MEDS ORDERED: DEXTROSE 50%-WATER 50 ML DISP.SYRIN IV PRN (22:00)
[2022-10-30] MEDS ORDERED: MAGNESIUM HYDROXIDE 30 ML UDC PO PRN ×2 (22:00)
[2022-10-30] MEDS ORDERED: ZOLPIDEM TARTRATE 5 MG TABLET PO PRN (22:00)
[2022-10-30] MEDS ORDERED: HYDROCODONE/APAP 5/325MG TABLET PO PRN (22:00)
[2022-10-30] MEDS ORDERED: HYDROMORPHONE INJ 2 MG/ML DISP.SYRIN IV PRN (22:00)
[2022-10-30] MEDS ORDERED: Z GUARD REMEDY 4 OZ OINT TP PRN (22:00)
[2022-10-30] MEDS ORDERED: ONDANSETRON HCL/PF 4 MG/2 ML VIAL IVP PRN (22:00)
[2022-10-30] MEDS ORDERED: ACETAMINOPHEN 325 MG TABLET PO PRN ×2 (22:00)
[2022-10-30 22:02] VITALS: BP 147/71
--- NOTE | 2022-10-30 22:02 | NUR ---
REPORT GIVEN TO CHRIS OWEN
--- NOTE | 2022-10-30 22:29 | NUR ---
TRANSFERRED PT TO ROOM
--- NOTE | 2022-10-30 22:40 | NUR ---
RN OPENING NOTE PT A/O X4 PT NOTED TO BE VERY UNCOOPERATIVE WITH ASSESSMENT AND CARE. PT SAID ' CANT YOU JUST LEAVE ME ALONE ALREADY I WANT TO GET SOME REST' FULL BODY ASSESSMENT WAS NOT ABLE TO BE DONE PT REFUSED TO CHANGE INTO A PT GOWN HE DID NOT COOPERATE WITH THE RECORDING OF BELONGINGS WELL PT STATED ' I KNOW WHAT YOUR DOING YOU WANT TO WRITE EVERYTHING DOWN I HAVE SO YOU CAN STEAL MY THINGS' ASSURED PT THAT IT WAS FOR HIS BENEFIT SO THAT NOTHING WOULD GET LOST. PT FINALLY AGREED. NOTED WITH IV ACCESS ON THE L JUGULAR VEIN 20G RUNNING VANCO AT THIS TIME. NOTED OT HAD CIGARETTES AND A ALL SOURCE INTELLIGENCE ANALYST WITH HIM INFORMED PT WE NEED TO CONFISCATE THESE ITEMS THAT THEY WOULD BE RETURNED WHEN HE GETS DISCHARGED FOR SAFETY REASONS WE CANNOT HAVE PTS WITH THOSE ITEMS IN THE HOSPITAL. PT STATED ' YOU CANT DO THAT IF I WANT TO GO OUT AND SMOKE I WILL WHAT ARE YOU GOING TO DO ABOUT IT I CAN GO TO THE STREET AND SMOKE YOU CANT CONTROL ME!' PT AGREED TO GIVE THE ALL SOURCE INTELLIGENCE ANALYST AND CIGARETTES AFTER I SPOKE TO HIM FURTHER. CALL IGHT PLACED WITHIN REACH. TABLE WITHIN REACH. PT INFORMED THAT HE WILL BE NPO POST MIDNIGHT FOR POSSIBLE WOUND DEBRIDEMENT IN THE AM FOOD OFFERED OT REFUSED AT THIS ITME. BED CHEYANNE DIN LOWEST POSITION. HOB ELEVATED FOR ASPIRATION PRECAUTIONS. Addendum: 10/31/22 at 0511 by MADINA MENDOZA RN pt refused dressing of the wound pt stated " i just want you to leave alone so i can rest don't bother me anymore"
[2022-10-30] MEDS: BLOOD SUGAR DIAGNOSTIC 1 EACH STRIP VI SCH (23:11)
[2022-10-30] MEDS: IV NS 0.9% 1,000 ML IV PRN (23:12)
[2022-10-30] MEDS: *INSULIN REGULAR(HUMULIN R)HUM 100 UNIT/ML VIAL SQ PRN (23:12)
[2022-10-30 23:18] VITALS: BP 147/75
[2022-10-31] MEDS ORDERED: PIPERACILLIN /TAZOBACTAM 3.375 G VIAL IV ONE (01:50)
[2022-10-31] MEDS ORDERED: PIPERACILLIN /TAZOBACTAM 3.375 G in IV D5W 50 ML IV SCH ×3 (02:00)
[2022-10-31] MEDS ORDERED: PIPERACILLIN /TAZOBACTAM 3.375 G in IV D5W 50 ML IV ONE (02:00)
--- NOTE | 2022-10-31 06:12 | NUR ---
RN NOTE PT REFUSED LABS THIS MORNING RISK AND BENEFITS EXPLAINED X3 PT STATED ' LEAVE ME ALONE !'
--- NOTE | 2022-10-31 06:54 | NUR ---
RN CLOSING NOTE PT A/O X4 PT NOTED TO BE VERY UNCOOPERATIVE WITH ASSESSMENT AND CARE. NOTED WITH IV ACCESS ON THE L JUGULAR VEIN 20G RUNNING NS 2 75 ML/HR CALL LIGHT PLACED WITHIN REACH. TABLE WITHIN REACH. PT INFORMED THAT HE WILL BE NPO POST MIDNIGHT FOR POSSIBLE WOUND DEBRIDEMENT TODAY. BED LOCKED IN LOWEST POSITION. HOB ELEVATED FOR ASPIRATION PRECAUTIONS.WILL ENDORSE CARE TO DAY SHIFT NURSE.
[2022-10-31] MEDS ORDERED: TEMAZEPAM 15 MG CAPSULE PO PRN (07:00)
[2022-10-31] MEDS ORDERED: ONDANSETRON 4 MG TAB.RAPDIS PO PRN (07:00)
[2022-10-31] MEDS: BLOOD SUGAR DIAGNOSTIC 1 EACH STRIP VI SCH ×4 (07:01→21:49)
[2022-10-31] MEDS: *INSULIN REGULAR(HUMULIN R)HUM 100 UNIT/ML VIAL SQ PRN ×2 (07:01→21:49)
--- NOTE | 2022-10-31 07:30 | NUR ---
MS RN OPENING NOTE RECEIVED PT ASLEEP IN BED, EASILY AROUSED. PT A/O X4, ABLE TO MAKE NEEDS KNOWN. PT ON ROOM AIR, TOLERATING WELL. NO SOB NOTED. NOT IN ANY SIGN OF RESPIRATORY DISTRESS. IV ACCESS IN LEFT JUGULAR G#20, INTACT AND PATENT WITH NS INFUSING AT 100ML/HR. SAFETY MEASURES IN PLACE: BED IN LOWEST AND LOCKED POSITION, BED RAILS UP X2, BED ALARM ON, AND CALL LIGHT WITHIN REACH. WILL CONTINUE TO MONITOR PT.
--- NOTE | 2022-10-31 07:42 | NUR ---
WOUND CARE CONSULT: LIMITED ASSESSMENT DUE TO PT ANGRY AND SARCASTIC. PT ALLOWED ASSESSMENT OF BACK AND BUTTOCKS (SKIN INTACT). THERE IS A DRESSING ON LEFT LOWER EXTREMITY AND A SHOE ON RT FOOT. DEFER TO PODIATRY FOR WOUND TREATMENT PLAN. PT GOING FOR SURGERY TODAY. WILL SEE PRN.
[2022-10-31] MEDS: PANTOPRAZOLE 40 MG TABLET.DR PO SCH (08:18)
--- NOTE | 2022-10-31 08:45 | NUR ---
SS Consult requested for homelessness. SW will follow up as needed.
[2022-10-31] MEDS: LEVETIRACETAM (250 MG) 250 MG TABLET PO SCH ×2 (08:55→21:38)
[2022-10-31] MEDS: ASCORBIC ACID 500 MG TABLET PO SCH (08:55)
[2022-10-31] MEDS: DOCUSATE SODIUM 100 MG CAPSULE PO SCH (08:55)
[2022-10-31] MEDS: MULTIVITAMINS,THERAGRAN 1 UDTAB TABLET PO SCH (08:55)
[2022-10-31] MEDS: THIAMINE HCL 100 MG TABLET PO SCH (08:55)
[2022-10-31] MEDS: FOLIC ACID 1 MG TABLET PO SCH (08:56)
[2022-10-31] MEDS: clonazePAM 1 MG TABLET PO SCH ×4 (08:56→21:38)
[2022-10-31] MEDS: METOPROLOL TARTRATE 25 MG TABLET PO SCH (08:59)
[2022-10-31] MEDS: VANCOMYCIN 1 GM in IV D5W 250 ML IV SCH ×2 (09:00→21:38)
--- NOTE | 2022-10-31 10:16 | NUR ---
Sleep Lab Technician Consult SW received a consult request for homelessness. SW met with pt at bedside but pt. was asleep and unresponsive. PASHA will conduct interview at a later time.
[2022-10-31] MEDS: INSULIN REGULAR, HUMAN 100 UNIT/ML 3 ML VIAL SQ PRN ×2 (11:29→17:02)
[2022-10-31] MEDS: PIPERACILLIN /TAZOBACTAM 3.375 G in IV D5W 50 ML IV SCH ×3 (12:05→23:36)
--- NOTE | 2022-10-31 14:15 | NUR ---
College Or University Business Manager Consult SW received a consult request for homelessness. Pt. is a 62 year old white male who was admitted for cellulitis. SW met with Pt. at bedside. Pt. was alert and oriented x1. Pt. was disheveled and had an irritable mood and labile affect. SW was unable to confirm demographic information. Pt. was uncooperative for assessment. Pt. stated he lived on the streets. DC Plan: SW offered pt. halfway options. SW offered pt. homelessness resources and directions to [facility] [address] [place] [address] in which pt. accepted. Pt fell back asleep and was uncooperative with signing the homeless waiver form. SW discussed with nurse and agreed to provide pt. with a TAP card upon discharge. ------- Year-round shelters: [facility] [address] [place] [address] ; [facility] [address] [place] [address]; [facility] [facility]. [facility] [address] Hygiene: [facility]: [address] [facility] ; [facility] [address] [facility] ; [facility] [address] [facility] . Food Resources: [place] [facility] at [facility]- [address] [facility]; Meet Each Need with Dignity ([facility]) [address] [facility] [address]; [facility] [address] [facility]; [facility] [address] [facility]. Mental Health resources provided: [facility] [address] [place] [address] ; [facility] [address] [facility] [address], [place] [address] ; Toshia Younger [facility] [address] [place] [address] ; [facility] [place], [place] [phone] Healthcare Clinics: [facility] [address] [facility], [address] [place]. [place] ; [facility] [address] [facility] [place] [address]; [facility] [address] [facility] [address] [phone] Counseling--Outpatient [facility] [address], [place] [address] (Specializes in in-depth psychotherapy for emotional distress: anxiety, depression, interpersonal conflicts, life transitions, childhood abuse) [facility] [address] [place] [address] (Assist with solving problem marital difficulties, separation & divorce, aging parents, & grief, chronic & terminal illness) [facility] [address] [place] [address] (Deal with loss & grief, anxiety, marital difficulties) Homebound/Mental Health Services [address], [address] [place] [address] (Provide in-home mental services to people who are incapable of leaving their homes) [facility] Elder[facility] [address] [place] [address] [facility] [address] [place] [address] PSYCHIATRIC OUTPATIENT SERVICES [facility] Partial Hospitalization and Intensive Outpatient Program (Managed Care and [place] Only)[address] [address] [facility] [phone] [facility] Partial Hospitalization and Outpatient Snuplls[address] [place], [place] [phone] RAS[facility] [place] [address] [facility]. [address] [place], [place] [phone] [facility] Partial Hospitalization and Outpatient [id number] Jose Miguel [place], [phone] Substance Abuse resources provided included: [facility] Substance Abuse Self-Helpline ([facility]) ; [facility] [address] [facility]. [place] [address] ; [facility] [place] [address] [facility] [address] ; [facility] [address] [facility] [place]. [place] [phone] ; [facility] [address] [facility] [phone] ; [facility] [address] [facility] [address] ; [facility] [address] [facility] [phone] ; [facility] Substance Abuse Helpline([facility])-[facility] ; [facility] ; [facility] [place]; [facility] [place]; [facility] [place]; [facility] [place]; [facility] [place]; [facility] [place]; [facility] [place]; [facility] [place]; Alcoholics Anonymous -[facility]; [facility] ; Marijuana Anonymous [facility]; Narcotics Anonymous www.na.org;
[2022-10-31] MEDS: IV NS 0.9% 1,000 ML IV PRN (14:56)
--- NOTE | 2022-10-31 16:19 | NUR ---
RN NOTE PT SEEN BY DR. ZHOU, BABAK MACHINE LACER WITH ORDERS TO GET CONSENT FOR WOUND DEBRIDEMENT ON HIS LEFT LOWER EXTREMITIES AND TO RESUME PT ON HIS DIET OF CONSISTENT CARB DIET AND START PT NPO AFTER MIDNIGHT ON 11/03/22Thursday. PER DR. ZHOU PT WILL HAVE A WOUND DEBRIDEMENT PROCEDURE ON 11/03/22 AT 1100. ORDERS CARRIED OUT. CONSENT OBTAINED AND SIGNED BY PT.
--- NOTE | 2022-10-31 18:07 | NUR ---
PT REFUSED DUPLEX VENOUS OF LOWER EXT BILATERAL. ATTENDING RN AWARE OF PT'S REFUSAL OF U/S EXAM.
--- NOTE | 2022-10-31 18:38 | NUR ---
MS RN CLOSING NOTE PT ASLEEP IN BED, EASILY AROUSED. PT A/O X4, ABLE TO MAKE NEEDS KNOWN. PT ON ROOM AIR, TOLERATING WELL. NO SOB NOTED. NOT IN ANY SIGN OF RESPIRATORY DISTRESS. IV ACCESS IN LEFT JUGULAR G#20, INTACT AND PATENT WITH NS INFUSING AT 100ML/HR. ALL NEEDS ATTENDED. KEPT CLEAN AND COMFORTABLE AT ALL TIMES. SAFETY MEASURES IN PLACE: BED IN LOWEST AND LOCKED POSITION, BED RAILS UP X2, BED ALARM ON, AND CALL LIGHT WITHIN REACH. WILL ENDORSE TO CHANGE COORDINATOR NURSE FOR NORBERTO.
--- NOTE | 2022-10-31 19:30 | NUR ---
RN OPENING NOTES PT STABLE. NO S/SX OF RESPIRATORY DISTRESS NOTED. ALL NEEDS MET AT THIS TIME.
[2022-10-31 20:00] VITALS: BP 121/68
[2022-11-01] MEDS: IV NS 0.9% 1,000 ML IV PRN (05:55)
[2022-11-01] MEDS: PIPERACILLIN /TAZOBACTAM 3.375 G in IV D5W 50 ML IV SCH ×3 (05:56→17:53)
[2022-11-01] MEDS: BLOOD SUGAR DIAGNOSTIC 1 EACH STRIP VI SCH ×4 (06:30→22:00)
[2022-11-01] MEDS: *INSULIN REGULAR(HUMULIN R)HUM 100 UNIT/ML VIAL SQ PRN (06:31)
--- NOTE | 2022-11-01 06:51 | NUR ---
RN CLOSING NOTES PT STABLE. NO S/SX OF RESPIRATORY DISTRESS NOTED. ALL NEEDS MET. ALL ORDERS CARRIED OUT. PT KEPT CLEAN AND DRY. WILL ENDORSE TO ONCOMING SHIFT FOR NORBERTO.
[2022-11-01 07:00] VITALS: BP 187/106
[2022-11-01] MEDS: PANTOPRAZOLE 40 MG TABLET.DR PO SCH (08:03)
[2022-11-01] MEDS: MULTIVITAMINS,THERAGRAN 1 UDTAB TABLET PO SCH (08:47)
[2022-11-01] MEDS: clonazePAM 1 MG TABLET PO SCH ×4 (08:47→21:00)
[2022-11-01] MEDS: FOLIC ACID 1 MG TABLET PO SCH (08:47)
[2022-11-01] MEDS: DOCUSATE SODIUM 100 MG CAPSULE PO SCH (08:47)
[2022-11-01] MEDS: THIAMINE HCL 100 MG TABLET PO SCH (08:47)
[2022-11-01] MEDS: ASCORBIC ACID 500 MG TABLET PO SCH (08:47)
[2022-11-01 08:48] VITALS: BP 158/100
[2022-11-01] MEDS: LEVETIRACETAM (250 MG) 250 MG TABLET PO SCH ×2 (08:48→21:00)
[2022-11-01] MEDS: METOPROLOL TARTRATE 25 MG TABLET PO SCH (08:48)
[2022-11-01] MEDS: DAKINS HALF STRENGTH (0.25%) 480 ML BOTTLE TOP SCH (08:49)
[2022-11-01] MEDS: VANCOMYCIN 1 GM in IV D5W 250 ML IV SCH ×2 (08:52→21:00)
--- NOTE | 2022-11-01 12:30 | NUR ---
RN NOTE PT REFUSED HIS ACCUCHECK SCHEDULED AT 1200. EXPLAINED RISK AND BENEFITS X3, STILL REFUSED.
--- NOTE | 2022-11-01 17:07 | NUR ---
RN NOTE PT REFUSED HIS ACCUCHECK SCHEDULED AT 1730. EXPLAINED RISK AND BENEFITS X3, STILL REFUSED.
--- NOTE | 2022-11-01 19:25 | NUR ---
MS RN CLOSING NOTE PT ASLEEP IN BED, EASILY AROUSED. PT A/O X4, ABLE TO MAKE NEEDS KNOWN. PT ON ROOM AIR, TOLERATING WELL. NO SOB NOTED. NOT IN ANY SIGN OF RESPIRATORY DISTRESS. PT NOTED WITH EPISODES OF UNTOWARD BEHAVIOR TOWARDS STAFF AND THREATENING TO LEAVE THE FACILITY DURING CHANGED OF SHIFT. PT'S IV ACCESS WAS ALSO PULLED OUT. EXPLAINED TO THE PT THE RISK OF LEAVING THE FACILITY UNSTABLE ESPECIALLY HIS WOUND IN HIS LEFT LEG. ALSO REMINDED THE PT THAT HE WILL HAVE A WOUND DEBRIDEMENT PROCEDURE ON 11/03/22. STILL STRONGLY REFUSED TO STAY AND WANTS TO LEAVE. CALLED QUOC GARRISON NP AND MADE AWARE OF PT'S BEHAVIOR WITH ORDERS TO DO AGAINST MEDICAL ADVICE IF HE WANTS TO LEAVE. ENDROSED TO MANAGER LONG TERM CARE NURSEMADINA OF 'S ORDER. SAFETY MEASURES IN PLACE: BED IN LOWEST AND LOCKED POSITION, BED RAILS UP X2, BED ALARM ON, AND CALL LIGHT WITHIN REACH. ENDORSED TO MANAGER LONG TERM CARE NURSE FOR NORBERTO.
--- NOTE | 2022-11-01 20:19 | NUR ---
MS OPENING NOTE PT RECEIVED UPSET WANTING TO LEAVE HOSPITAL. SPOKE WITH PT SIGNED AMA FORMS. BUT IS NOW REFUSING TO LEAVE. CHARGE NURSE AWARE. Addendum: 11/01/22 at 2200 by MADINA MENDOZA RN PT AGGRESSIVE TOWARDS STAFF COMING UP TO THE STATION SLAMMING THINGS DOWN. DEMANDING HE GET " THE HARD STUFF" PT STATED " I WANT THE HARD STUFF I WANT FENTANYL GIVE IT TO ME NOW!" EXPLAINED TO PT WE CANNOT GIVE MEDICATIONS TO HIM IF HE IS LEAVING AMA AND THATHE DOES NOT HAVE AN ORDER FOR FENTANYL BUT DOES HAVE OTHER MEDICATIONS SUCH DILAUDID. PT JUST KEEPS REPEATING ' I WANT THE HARD STUFF OR IM LEAVING "
--- NOTE | 2022-11-01 20:30 | NUR ---
RN NOTE PT PULLED OUT IV ACCESS AND IS REFUSING REINSERTION.
--- NOTE | 2022-11-01 20:59 | NUR ---
RN NOTE PT SPOKE WITH MOTHER AND NOW HAS DECIDED TO STAY. Addendum: 11/02/22 at 0650 by MADINA MENDOZA RN SPOKE TO PTS MOTHER PER MOTHER PT IS SAYING " THAT YOU ARE ALL TRYING TO KICK HIM OUT" EXPLAINED TO MOTHER THAT THE PT IS THE ONE THAT WISHES TO LEAVE PER MOTHER " I WILL SPEAK TO HIM I CANNOT PICK HIM UP AT THIS TIME AND I KNOW HE HAS SX SCHEDULED ON THURSDAY AND ITS IMPORTANT HE GETS IT"
--- NOTE | 2022-11-01 22:11 | NUR ---
RN NOTE PT CONTINUOS TO REFUSE IV INSERTION,ALL SCHEDULED MEDICATIONS AND VITAL SIGN ASSESSMENTS RISK AND BENEFITS EXPLAINED X3 PT REFUSES TO LOOK AT STAFF OR ACKNOWLEDGE WHEN HE IS SPOKEN TO JUST TURNS OVER IN BED TO FACE AWAY FROM STAFF.
--- NOTE | 2022-11-02 05:43 | NUR ---
RN NOTE PT SNUCK OUT OF THE UNIT. WAS FOUND WANDERING BY THE SECURITY PER SECURITY LUTHER PT STATED "HE WAS LOOKING FOR THE ER HE WANTED TO LOOK FOR HIS JEWELRY" PER PTS BELONGING LIST PT DID NOT BRING ANY JEWELRY WITH HIM TO THE HOSPITAL. PT WAS ESCORTED BACK TO THE FLOOR BY SECURITY.
[2022-11-02] MEDS: PIPERACILLIN /TAZOBACTAM 3.375 G in IV D5W 50 ML IV SCH ×3 (06:00)
--- NOTE | 2022-11-02 06:41 | NUR ---
RN NOTE PT IN BED AT THIS TIME DOES NOT WANT TO BE DISTURBED. PT STILL REFUSING IV INSERTION. REFUSED ALL CARE THROUGHOUT THE SHIFT. CONTINUES TO BE AGGRESSIVE TOWARDS STAFF OR COMPLETELY IGNORES STAFF INSISTING " I CAN DO WHAT EVERY I WANT" WILL ENDORSE CARE TO DAY SHIFT NURSE."
[2022-11-02] MEDS: BLOOD SUGAR DIAGNOSTIC 1 EACH STRIP VI SCH (07:30)
--- NOTE | 2022-11-02 07:51 | NUR ---
RECEIVED PATIENT IN BED SLEEPING, EASILY AROUSED. ON RA, TOLERATING WELL, NO SIGNS OF SOB NOTED. NO SIGNS OF RESPIRATORY DISTRESS NOTED. NOTICED PATIENT ON HIS OWN CLOTHES, ENDORSED BY NIGHT NURSE, PATIENT REFUSING CARE AND WANTING TO LEAVE. WILL SPEAK TO THE PATIENT WHEN AWAKE TO DISCUSS CONCERNS. WILL MONITOR.
[2022-11-02] MEDS: PANTOPRAZOLE 40 MG TABLET.DR PO SCH ×2 (08:31→09:37)
[2022-11-02] MEDS: DAKINS HALF STRENGTH (0.25%) 480 ML BOTTLE TOP SCH (09:00)
[2022-11-02] MEDS: METOPROLOL TARTRATE 25 MG TABLET PO SCH (09:00)
[2022-11-02] MEDS ORDERED: VANCOMYCIN HCL 0.75 GM in IV D5W 250 ML IV SCH (09:00)
[2022-11-02] MEDS: THIAMINE HCL 100 MG TABLET PO SCH (09:37)
[2022-11-02] MEDS: DOCUSATE SODIUM 100 MG CAPSULE PO SCH (09:37)
[2022-11-02] MEDS: ASCORBIC ACID 500 MG TABLET PO SCH (09:37)
[2022-11-02] MEDS: FOLIC ACID 1 MG TABLET PO SCH (09:37)
[2022-11-02] MEDS: LEVETIRACETAM (250 MG) 250 MG TABLET PO SCH (09:37)
[2022-11-02] MEDS: clonazePAM 1 MG TABLET PO SCH (09:37)
[2022-11-02] MEDS: MULTIVITAMINS,THERAGRAN 1 UDTAB TABLET PO SCH (09:37)
--- NOTE | 2022-11-02 10:15 | NUR ---
PATIENT LEFT THE UNIT AGAINST MEDICAL ADVICE. PATIENT WAS AMBULATORY, ALERT AND ORIENTEDX4. ON ROOM AIR TOLERATING WELL. NO RESPIRATORY DISTRESS NOTED. MORNING MEDS WERE GIVEN, ALL NEEDS ATTENDED BEFORE PATIENT LEFT AT AROUND 10:00am. DISCUSSED RISK OF LEAVING WITHOUT MEDICAL ADVICE. PATIENT C/O [employer]S LICENSE MISSING, STATES " THE OTHER PATIENT WHO WAS HERE AT THE ROOM TOOK MY STUFF. MD AWARE AND ADVICE TO HAVE A POLICE REPORT. PATIENT VERBALIZED UNDERSTANDING.
== END 2022-11-02 09:50 | disposition left against medical advice (07) | DRG 603 ==
LOC: ER 17:05 → MED 21:50
PROVIDERS: ADMIT Nurse Practitioner Acute Care; ATTEND Nurse Practitioner Acute Care
DX: L03.116 Cellulitis of left lower limb (principal); E44.1 Mild protein-calorie malnutrition; L97.829 Non-pressure chronic ulcer of other part of left lower leg with unspecified severity; L02.416 Cutaneous abscess of left lower limb; K74.60 Unspecified cirrhosis of liver; E11.51 Type 2 diabetes mellitus with diabetic peripheral angiopathy without gangrene; Z20.822 Contact with and (suspected) exposure to COVID-19; I10 Essential (primary) hypertension; F29 Unspecified psychosis not due to a substance or known physiological condition; D64.9 Anemia, unspecified; Z88.1 Allergy status to other antibiotic agents; Z88.2 Allergy status to sulfonamides; G40.909 Epilepsy, unspecified, not intractable, without status epilepticus; Z79.899 Other long term (current) drug therapy; R79.89 Other specified abnormal findings of blood chemistry; F17.210 Nicotine dependence, cigarettes, uncomplicated; E86.1 Hypovolemia; Z98.890 Other specified postprocedural states; I87.8 Other specified disorders of veins; E11.42 Type 2 diabetes mellitus with diabetic polyneuropathy; Z86.718 Personal history of other venous thrombosis and embolism; F31.9 Bipolar disorder, unspecified; F41.9 Anxiety disorder, unspecified; F10.11 Alcohol abuse, in remission; Z59.00 Homelessness unspecified; E11.622 Type 2 diabetes mellitus with other skin ulcer; G89.29 Other chronic pain; I83.028 Varicose veins of left lower extremity with ulcer other part of lower leg; M21.962 Unspecified acquired deformity of left lower leg; Z94.5 Skin transplant status
CPT/HCPCS: 11043; 36415; 71045-TC; 73590-TC; 80048-TC; 80076-TC; 80202-TC; 82962-TC; 83605-TC; 85025-TC; 85730-TC; 87040-TC; 87081-TC; A6253; C9803; G0378; J1815; J2543; J3370; J7030; J7042; J7060

== ENCOUNTER 2022-12-01 11:02 | Outpatient (CLI) | payer MEDICARE, OTHER ==
[~2022-12-01 11:02] MED LIST changes: +DAKINS HALF STRENGTH (0.25%) 480 ML BOTTLE ONE
[2022-12-01] MEDS ORDERED: DAKINS HALF STRENGTH (0.25%) 480 ML BOTTLE ONE (11:27)
== END 2022-12-01 23:59 | disposition home or self-care (01) ==
LOC: WOU 11:02
PROVIDERS: ATTEND Podiatrist Foot & Ankle Surgery
DX: I87.312 Chronic venous hypertension (idiopathic) with ulcer of left lower extremity (principal); L97.823 Non-pressure chronic ulcer of other part of left lower leg with necrosis of muscle; I87.2 Venous insufficiency (chronic) (peripheral); E11.9 Type 2 diabetes mellitus without complications; Z79.84 Long term (current) use of oral hypoglycemic drugs; F17.210 Nicotine dependence, cigarettes, uncomplicated; M79.672 Pain in left foot
CPT/HCPCS: 11043

== ENCOUNTER 2022-12-08 10:00 | Outpatient (CLI) | payer MEDICARE, OTHER ==
[~2022-12-08 10:00] MED LIST changes: -DAKINS HALF STRENGTH (0.25%) 480 ML BOTTLE ONE
[2022-12-08] MEDS ORDERED: LIDOCAINE SOLN 4% 50 ML BOTTLE ONE (10:08)
== END 2022-12-08 23:59 | disposition home or self-care (01) ==
LOC: WOU 10:00
PROVIDERS: ATTEND Podiatrist Foot & Ankle Surgery
DX: I87.312 Chronic venous hypertension (idiopathic) with ulcer of left lower extremity (principal); L97.823 Non-pressure chronic ulcer of other part of left lower leg with necrosis of muscle; I87.2 Venous insufficiency (chronic) (peripheral); M79.662 Pain in left lower leg; F17.210 Nicotine dependence, cigarettes, uncomplicated; E11.9 Type 2 diabetes mellitus without complications; Z79.84 Long term (current) use of oral hypoglycemic drugs
CPT/HCPCS: 11043

== ENCOUNTER 2022-12-15 10:49 | Outpatient (CLI) | payer MEDICARE, OTHER ==
[2022-12-15] MEDS ORDERED: UREA 10% -AHA 4% CREAM 57 GM TUBE ONE (11:02)
== END 2022-12-15 23:59 | disposition home or self-care (01) ==
LOC: WOU 10:49
PROVIDERS: ATTEND Podiatrist Foot & Ankle Surgery
DX: I87.312 Chronic venous hypertension (idiopathic) with ulcer of left lower extremity (principal); L97.823 Non-pressure chronic ulcer of other part of left lower leg with necrosis of muscle; I87.2 Venous insufficiency (chronic) (peripheral); F17.210 Nicotine dependence, cigarettes, uncomplicated; I10 Essential (primary) hypertension; E11.9 Type 2 diabetes mellitus without complications; Z79.84 Long term (current) use of oral hypoglycemic drugs; M79.662 Pain in left lower leg
CPT/HCPCS: 11043; 11046; J7040

== ENCOUNTER 2022-12-22 10:30 | Outpatient (CLI) | payer MEDICARE, OTHER ==
[2022-12-22] MEDS ORDERED: LIDOCAINE SOLN 4% 50 ML BOTTLE ONE (11:18)
[2022-12-22] MEDS ORDERED: DAKINS HALF STRENGTH (0.25%) 480 ML BOTTLE ONE (11:18)
== END 2022-12-22 23:59 | disposition home or self-care (01) ==
LOC: WOU 10:30
PROVIDERS: ATTEND Podiatrist Foot & Ankle Surgery
DX: I87.312 Chronic venous hypertension (idiopathic) with ulcer of left lower extremity (principal); L97.823 Non-pressure chronic ulcer of other part of left lower leg with necrosis of muscle; I87.2 Venous insufficiency (chronic) (peripheral); M79.662 Pain in left lower leg; F17.210 Nicotine dependence, cigarettes, uncomplicated; E11.9 Type 2 diabetes mellitus without complications; Z79.84 Long term (current) use of oral hypoglycemic drugs; I10 Essential (primary) hypertension
CPT/HCPCS: 11043

== ENCOUNTER 2022-12-29 10:05 | Outpatient (CLI) | payer MEDICARE, OTHER | END 2022-12-29 23:59 | disposition home or self-care (01) | LOC: WOU 10:05 | PROVIDERS: ATTEND Podiatrist Foot & Ankle Surgery | DX: I87.312 Chronic venous hypertension (idiopathic) with ulcer of left lower extremity (principal); L97.823 Non-pressure chronic ulcer of other part of left lower leg with necrosis of muscle; I87.2 Venous insufficiency (chronic) (peripheral); E11.9 Type 2 diabetes mellitus without complications; Z79.84 Long term (current) use of oral hypoglycemic drugs; F17.210 Nicotine dependence, cigarettes, uncomplicated; M79.662 Pain in left lower leg | CPT/HCPCS: 11043 ==

== ENCOUNTER 2023-01-12 13:10 | Outpatient (CLI) | payer MEDICARE, OTHER | END 2023-01-12 23:59 | disposition home or self-care (01) | LOC: WOU 13:10 | PROVIDERS: ATTEND Surgery | DX: I87.312 Chronic venous hypertension (idiopathic) with ulcer of left lower extremity (principal); L97.823 Non-pressure chronic ulcer of other part of left lower leg with necrosis of muscle; S51.812D Laceration without foreign body of left forearm, subsequent encounter; S61.412D Laceration without foreign body of left hand, subsequent encounter; L03.114 Cellulitis of left upper limb; X58.XXXD Exposure to other specified factors, subsequent encounter; M79.662 Pain in left lower leg; F17.210 Nicotine dependence, cigarettes, uncomplicated; Z79.84 Long term (current) use of oral hypoglycemic drugs | CPT/HCPCS: 11043 ==

== ENCOUNTER 2023-02-12 08:51 | Outpatient (CLI) | payer MEDICARE, OTHER | END 2023-02-12 23:59 | disposition home or self-care (01) | LOC: WOU 08:51 | PROVIDERS: ATTEND Podiatrist Foot & Ankle Surgery | DX: I87.312 Chronic venous hypertension (idiopathic) with ulcer of left lower extremity (principal); L97.822 Non-pressure chronic ulcer of other part of left lower leg with fat layer exposed; L97.825 Non-pressure chronic ulcer of other part of left lower leg with muscle involvement without evidence of necrosis; I87.2 Venous insufficiency (chronic) (peripheral); F17.210 Nicotine dependence, cigarettes, uncomplicated; E11.9 Type 2 diabetes mellitus without complications; Z79.84 Long term (current) use of oral hypoglycemic drugs; I10 Essential (primary) hypertension | CPT/HCPCS: 11043 ==

== ENCOUNTER 2023-02-19 13:03 | Outpatient (CLI) | payer MEDICARE, OTHER | END 2023-02-19 23:59 | disposition home health service (06) | LOC: WOU 13:03 | PROVIDERS: ATTEND Podiatrist Foot & Ankle Surgery | DX: I87.312 Chronic venous hypertension (idiopathic) with ulcer of left lower extremity (principal); L97.825 Non-pressure chronic ulcer of other part of left lower leg with muscle involvement without evidence of necrosis; I87.2 Venous insufficiency (chronic) (peripheral); F17.210 Nicotine dependence, cigarettes, uncomplicated; E11.9 Type 2 diabetes mellitus without complications; I10 Essential (primary) hypertension; Z79.84 Long term (current) use of oral hypoglycemic drugs | CPT/HCPCS: 11043 ==

== ENCOUNTER 2023-02-26 11:28 | Outpatient (CLI) | payer MEDICARE, OTHER | END 2023-02-26 23:59 | disposition home health service (06) | LOC: WOU 11:28 | PROVIDERS: ATTEND Podiatrist Foot & Ankle Surgery | DX: I87.312 Chronic venous hypertension (idiopathic) with ulcer of left lower extremity (principal); L97.825 Non-pressure chronic ulcer of other part of left lower leg with muscle involvement without evidence of necrosis; I87.2 Venous insufficiency (chronic) (peripheral); F17.210 Nicotine dependence, cigarettes, uncomplicated; E11.9 Type 2 diabetes mellitus without complications; Z79.84 Long term (current) use of oral hypoglycemic drugs | CPT/HCPCS: 11043 ==

== ENCOUNTER 2023-03-05 13:35 | Outpatient (CLI) | payer MEDICARE, OTHER ==
[2023-03-05] MEDS ORDERED: DAKINS HALF STRENGTH (0.25%) 480 ML BOTTLE ONE (14:19)
== END 2023-03-05 23:59 | disposition home health service (06) ==
LOC: WOU 13:35
PROVIDERS: ATTEND Surgery
DX: I87.312 Chronic venous hypertension (idiopathic) with ulcer of left lower extremity (principal); L97.825 Non-pressure chronic ulcer of other part of left lower leg with muscle involvement without evidence of necrosis; I87.2 Venous insufficiency (chronic) (peripheral); F17.210 Nicotine dependence, cigarettes, uncomplicated; E11.9 Type 2 diabetes mellitus without complications; Z79.84 Long term (current) use of oral hypoglycemic drugs
CPT/HCPCS: 11043; 11046; A6253

== ENCOUNTER 2023-03-09 09:49 | Outpatient (CLI) | payer MEDICARE, OTHER | END 2023-03-09 23:59 | disposition home or self-care (01) | LOC: WOU 09:49 | PROVIDERS: ATTEND Podiatrist Foot & Ankle Surgery | DX: I87.312 Chronic venous hypertension (idiopathic) with ulcer of left lower extremity (principal); L97.822 Non-pressure chronic ulcer of other part of left lower leg with fat layer exposed; I87.2 Venous insufficiency (chronic) (peripheral); F17.210 Nicotine dependence, cigarettes, uncomplicated; E11.9 Type 2 diabetes mellitus without complications; Z79.84 Long term (current) use of oral hypoglycemic drugs | CPT/HCPCS: 11042; 11045 ==

== ENCOUNTER 2023-03-12 10:30 | Outpatient (CLI) | payer MEDICARE, OTHER ==
[2023-03-12] MEDS ORDERED: LIDOCAINE SOLN 4% 50 ML BOTTLE ONE (10:47)
== END 2023-03-12 23:59 | disposition home health service (06) ==
LOC: WOU 10:30
PROVIDERS: ATTEND Podiatrist Foot & Ankle Surgery
DX: I87.312 Chronic venous hypertension (idiopathic) with ulcer of left lower extremity (principal); L97.822 Non-pressure chronic ulcer of other part of left lower leg with fat layer exposed; I87.2 Venous insufficiency (chronic) (peripheral); F17.210 Nicotine dependence, cigarettes, uncomplicated; E11.9 Type 2 diabetes mellitus without complications; Z79.84 Long term (current) use of oral hypoglycemic drugs
CPT/HCPCS: 11043; A6253

== ENCOUNTER 2023-03-19 10:43 | Outpatient (CLI) | payer MEDICARE, OTHER | END 2023-03-19 23:59 | disposition home health service (06) | LOC: WOU 10:43 | PROVIDERS: ATTEND Podiatrist Foot & Ankle Surgery | DX: I87.312 Chronic venous hypertension (idiopathic) with ulcer of left lower extremity (principal); L97.825 Non-pressure chronic ulcer of other part of left lower leg with muscle involvement without evidence of necrosis; I87.2 Venous insufficiency (chronic) (peripheral); F17.210 Nicotine dependence, cigarettes, uncomplicated; E11.9 Type 2 diabetes mellitus without complications; Z79.84 Long term (current) use of oral hypoglycemic drugs | CPT/HCPCS: 11043; 11046; J7040; A6253; A6197 ==

== ENCOUNTER 2023-03-23 10:47 | Outpatient (CLI) | payer MEDICARE, OTHER ==
[2023-03-23] MEDS ORDERED: DAKINS HALF STRENGTH (0.25%) 480 ML BOTTLE ONE (10:57)
== END 2023-03-23 23:59 | disposition home health service (06) ==
LOC: WOU 10:47
PROVIDERS: ATTEND Podiatrist Foot & Ankle Surgery
DX: I87.312 Chronic venous hypertension (idiopathic) with ulcer of left lower extremity (principal); L97.825 Non-pressure chronic ulcer of other part of left lower leg with muscle involvement without evidence of necrosis; I87.2 Venous insufficiency (chronic) (peripheral); F17.210 Nicotine dependence, cigarettes, uncomplicated; Z79.84 Long term (current) use of oral hypoglycemic drugs
CPT/HCPCS: 11043; 11046; A6197

== ENCOUNTER 2023-03-26 10:53 | Outpatient (CLI) | payer MEDICARE, OTHER ==
[2023-03-26] MEDS ORDERED: UREA 10% -AHA 4% CREAM 57 GM TUBE ONE (11:20)
== END 2023-03-26 23:59 | disposition home or self-care (01) ==
LOC: WOU 10:53
PROVIDERS: ATTEND Podiatrist Foot & Ankle Surgery
DX: I87.312 Chronic venous hypertension (idiopathic) with ulcer of left lower extremity (principal); L97.825 Non-pressure chronic ulcer of other part of left lower leg with muscle involvement without evidence of necrosis; I87.2 Venous insufficiency (chronic) (peripheral); F17.210 Nicotine dependence, cigarettes, uncomplicated; E11.9 Type 2 diabetes mellitus without complications; Z79.84 Long term (current) use of oral hypoglycemic drugs
CPT/HCPCS: 11043; 11046; A6253; A6197

== ENCOUNTER 2023-03-30 11:01 | Outpatient (CLI) | payer MEDICARE, OTHER | END 2023-03-30 23:59 | disposition home health service (06) | LOC: WOU 11:01 | PROVIDERS: ATTEND Podiatrist Foot & Ankle Surgery | DX: I87.312 Chronic venous hypertension (idiopathic) with ulcer of left lower extremity (principal); L97.825 Non-pressure chronic ulcer of other part of left lower leg with muscle involvement without evidence of necrosis; I87.2 Venous insufficiency (chronic) (peripheral); F17.210 Nicotine dependence, cigarettes, uncomplicated; E11.9 Type 2 diabetes mellitus without complications; Z79.84 Long term (current) use of oral hypoglycemic drugs | CPT/HCPCS: 11043; 11046; A6253; A6197 ==